=== PATIENT | male | born 1950 | race African-American/Black ===

== ENCOUNTER 2017-09-17 11:45 | Inpatient (IN) | payer OTHER ==
[2017-09-17 11:53] VITALS: BMI 26.0
--- NOTE | 2017-09-17 12:25 | PDOC ---
History of Present Illness - General Chief Complaint: Wound Stated Complaint: Wound Time Seen by Provider: 09/17/17 12:19 - History of Present Illness Initial Comments: 09/17/17 12:23 67yo M with history of heroin abuse, rhabdomyolysis, renal failure, asthma, hypertension, hypercholesterolemia, HIV (CD4 ~500, undetectable VL), syncopal episodes, kidney stones, and depression who presents from [facility] due to concern for his R great toe. Pt was sent by Dr. Portillo due to concern of cellulitis and possibe DVT in his great toe. Pt reports his wound starting 2 weeks ago as a corn from his basketball sneakers rubbing against his foot. Pt reports using one of those pads to comfort his foot, however his foot gradually got worse and became odorous. Pt was seen at [facility] today and he noticed that his wound had opened and that his R leg was swollen unilaterally. Pt also endorses some R lateral foot numbness, however he is still able to walk and has no motor function that is impeded. Pt denies any history of diabetes, plane rides, long car rides, prolonged immobilization, and being on blood thinners. Pt also denies any headaches, blurry vision, SOB, CP/discomfort, palpitations, neck pain, back pain, weakness in his lower extremities, difficulty walking, and diarrhea/constipation Past History - Past Medical History Allergies/Adverse Reactions: Allergies Allergy/AdvReac Type Severity Reaction Status Date / Time aspirin Allergy Unknown Rash Verified 09/17/17 11:48 Penicillins Allergy Unknown Rash Verified 09/17/17 11:48 tomatoes Allergy Mild Uncoded 09/17/17 11:48 Home Medications: Ambulatory Orders Methadone HCl 80 mg PO DAILY 10/30/15 Abacavir Sulfate/Lamivudine [Epzicom Tablet] 1 tablet PO DAILY #30 tablet Albuterol Sulfate Inhaler - [Ventolin HFA Inhaler -] 1 - 2 inh PO QID #1 inhaler 09/10/17 Atenolol [Tenormin] 25 mg PO DAILY #30 tablet 09/10/17 Darunavir Ethanolate [Prezista] 800 mg PO HS #30 tablet 09/10/17 Furosemide [Lasix -] 1 tab PO BID #60 tab 09/10/17 Magnesium Chloride [Slow-Mag -] 1 tab PO DAILY #30 tablet.sa 09/10/17 Multivitamins [Multivit ([facility] Formulary)] 1 tab PO DAILY #30 tab 09/10/17 Nifedipine [Procardia Xl] 30 mg PO DAILY #30 tab.er.24 09/10/17 Ritonavir [Norvir -] 100 mg PO DAILY #30 tab 09/10/17 Anemia: No Asthma: Yes (ALBUTEROL INHALER) Cancer: No Cardiac Disorders: No CVA: No COPD: No CHF: No Dementia: No Diabetes: No GI Disorders: No Disorders: No HTN: Yes Hypercholesterolemia: No Kidney Stones: No Liver Disease: No Seizures: No Thyroid Disease: No Other medical history: HEARING LOSS - Surgical History Abdominal Surgery: No Appendectomy: No Cardiac Surgery: No Cholecystectomy: No Lung Surgery: No Neurologic Surgery: No Orthopedic Surgery: Yes (Nasal fx repair ) - Reproductive History Testicular Surgery: No - Immunization History Immunization Up to Date: No - Suicide/Smoking/Psychosocial Hx Smoking Status: Yes Smoking History: Current every day smoker Have you smoked in the past 12 months: Yes Number of Cigarettes Smoked Daily: 7 Cigars Per Day: 0 Information on smoking cessation initiated: Yes 'Breaking Loose' booklet given: 09/17/17 Hx Alcohol Use: No Drug/Substance Use Hx: Yes Substance Use Type: None Hx Substance Use Treatment: Yes Review of Systems - Review of Systems Constitutional: No: Chills, Fever, Night Sweats, Weakness HEENTM: No: Blurred Vision, Nose Congestion, Throat Pain Respiratory: No: Cough, Shortness of Breath, Wheezing Cardiac (ROS): Yes: Edema. No: Chest Pain, Lightheadedness, Palpitations, Syncope, Chest Tightness ABD/GI: No: Constipated, Diarrhea, Nausea, Vomiting, Abdominal cramping : No: Dysuria, Frequency, Flank Pain, Incontinence Musculoskeletal: No: Back Pain, Neck Pain *Physical Exam - Vital Signs Last Vital Signs Temp Pulse Resp BP Pulse Ox 98.2 F 71 18 123/67 100 09/17/17 11:49 09/17/17 11:49 09/17/17 11:49 09/17/17 11:49 09/17/17 11:49 - Physical Exam Comments: 09/17/17 12:50 GEN: NAD, awake, alert, sitting in bed HEENT: EOMI, YING, slightly icteric eyes, moist mucosa, NC/AT NECK: No JVD LUNGS: CTA bilaterally CARDIAC: RRR no murmurs appreciated ABD: Soft, NT/ND, no guarding, no rebound NEURO: Strength 5/5 in lower extremities, sensation intact in LLE, however RLE has R lateral foot numbness, downgoing babinski b/l, CN II-XII intact EXT: R 1st digit with medial plantar wound without fluctuance appreciated, malodorous calloused circumferential area (about a quarter) with slightly opened central area, no erythema noted, no drainage at this point, unilateral RLE edema noted, 2+ DP and PT pulses intact, warm Heart Score/ECG Review #1 09/17/17 15:22 NSR @61 bpm, RBBB noted, QTc 493ms, MI 196ms, UNCHANGED from 02/17/16 EKG ED Treatment Course - LABORATORY CBC & Chemistry Diagram: 09/17/17 15:07 09/17/17 13:00 - RADIOLOGY Radiology Studies Ordered: Category Date Time Status DUPLEX VASCUL US-2LEGS [US] Stat Ultrasound 09/17/17 12:20 Ordered Medical Decision Making - Medical Decision Making 09/17/17 12:36 Highly suspicious for DVT alongside of open R 1st digit wound possibly infected --CBC, CMP, LA, CRP, Blood Cx --Duplex Lower extremities --R foot XR --Will most likely need admission --> MRI to r/o osteomyelitis, wound care consult, ID consult --Calloused area preventing wound culture without any purulence/drainage --IV Vancomycin 1500mg IVPB x1 (renally dosed based on 09/10/17 labs) --IV Levaquin 750mg IVPB x1 (renally doses = one time dose q48h after?) for coverage of pseudomonas in setting of penicillin allergy 09/17/17 14:01 CMP resulted --Hypokalemia 3.4 --> KDur 40mEq PO once --Mild hyponatremia (once IV line placed can gently hydrate) 09/17/17 15:24 Ultrasound without any evidence of DVT *DC/Admit/Observation/Transfer Diagnosis at time of Disposition: Cellulitis Qualifiers: Site of cellulitis: extremity Site of cellulitis of extremity: toe Laterality: right Qualified Code(s): L03.031 - Cellulitis of right toe - Discharge Dispostion Condition at time of disposition: Stable Admit: Yes - Referrals Referrals: Karime Griffin FNP [Primary Care Provider] - - Patient Instructions - Post Discharge Activity
[2017-09-17] MEDS ORDERED: VANCOMYCIN 1,500 MG in DEXTROSE 5%-WATER - 250 ML IVPB ONE (12:56)
--- NOTE | 2017-09-17 13:29 | PDOC ---
Attending Attestation - Resident Resident Name: ManciniTomasa - ED Attending Attestation I have performed the following: I have examined & evaluated the patient, The case was reviewed & discussed with the resident, I agree w/resident's findings & plan, Exceptions are as noted - HPI HPI: 09/17/17 13:18 67-year-old male with history of intravenous drug abuse, chronic renal insufficiency, hypertension, hyperlipidemia, asthma, HIV with undetectable viral load and CD4 count in the 500 sent in by infectious disease specialist Dr. Portillo for right toe infection. Patient reported 2 weeks ago of developing a wound against his shoe. Stated that he's been using pads to pad his foot. Started developing worsening wound and drainage and foul smell. Denies fevers or chills. Resident Dr. Crow I discussed the case with Dr. Portillo and agrees that the patient needs to be worked up for potential osteomyelitis. - Physicial Exam PE: 09/17/17 13:19 GENERAL: Awake, alert, and fully oriented, in no acute distress. HEAD: No signs of trauma EYES: PERRLA, EOMI, sclera anicteric, conjunctiva clear ENT: Auricles normal inspection, hearing grossly normal, nares patent NECK: Normal ROM, supple EXTREMITIES: Normal range of motion, no edema. Large ulceration, mild drainage, foul smell R 1st toe infection. NEUROLOGICAL: Cranial nerves II through XII grossly intact. Normal speech SKIN: Warm, Dry, normal turgor, no rashes or lesions noted. - Medical Decision Making 09/17/17 13:29 Vital Signs Temp Pulse Resp BP Pulse Ox 98.2 F 71 18 123/67 100 09/17/17 11:49 09/17/17 11:49 09/17/17 11:49 09/17/17 11:49 09/17/17 11:49 Appears to have first right toe infection Need to r/o osteomyelitis. Labs, cultures, IV antibiotics (Vanc/levaquin) Ultrasound to r/o RLE DVT (given mild RLE swelling). Admit Heart Score/ECG Review #1 ECG reviewed & interpreted by me at: 14:30 09/17/17 15:17 NSR 61, RBBB, no std/nadia, QTC 493 msec
[2017-09-17 13:57] LABS: ALBUMIN 3.4 g/dl (3.4-5.0); ALK PHOS 88 U/L (45-117); ANION GAP 7 (8-16); BILIRUBIN,TOTAL 0.3 mg/dL (0.2-1.0); BLOOD UREA NITROGEN 47 mg/dL (7-18); CALCIUM 8.6 mg/dL (8.5-10.1); CHLORIDE 99 mmol/L (98-107); CO2 27 mmol/L (21-32); CREATININE 4.5 mg/dL (0.7-1.3); GLUCOSE,RANDOM 107 mg/dL (74-106); POTASSIUM 3.4 mmol/L (3.5-5.1); SGOT/AST 42 U/L (15-37); SGPT/ALT 16 U/L (12-78); SODIUM 133 mmol/L (136-145); TOT PROT 8.5 g/dl (6.4-8.2)
[2017-09-17] MEDS ORDERED: POTASSIUM CHLORIDE TABS 20 MEQ TABLET.ER (FP) PO ONE ×2 (14:00→15:51)
[2017-09-17] MEDS ORDERED: AZTREONAM 1 GM VIAL (RESTRICTED TO ID) IVPB ONE (14:38)
[2017-09-17] MEDS ORDERED: VANCOMYCIN 1 GRAM (PRE-DOCKED) 1,000 MG/250 ML BAG IVPB ONE (14:54)
[2017-09-17] MEDS ORDERED: VANCOMYCIN 500 MG VIAL (RESTRICTED TO ID ONLY) ONE (14:54)
[2017-09-17] MEDS ORDERED: AZTREONAM 2 GM in DEXTROSE 5%-WATER - 100 ML IVPB ONE (15:15)
[2017-09-17] MEDS ORDERED: SODIUM CHLORIDE 1,000 ML IV SCH (15:15)
[2017-09-17 15:32] LABS: BASO % 0.5 % (0-2.0); EOS % 3.3 % (0-4.5); HEMOGLOBIN 11.7 GM/dL (11.7-16.9); LYMPH % 21.9 % (8-40); MCH 31.6 pg (25.7-33.7); MCHC 34.4 g/dl (32.0-35.9); MEAN CELL VOLUME 91.8 fl (80-96); MEAN PLT VOLUME 9.6 fl (7.5-11.1); MONO % 15.1 % (3.8-10.2); NEUT % 59.2 % (42.8-82.8); PLATELET COUNT 164 K/MM3 (134-434); RDW 14.7 % (11.9-15.9)
--- NOTE | 2017-09-17 16:38 | CONS ---
DATE OF CONSULTATION: DATE OF DICTATION: 09/17/2017 HISTORY OF PRESENT ILLNESS: The patient is a 67-year-old male who was admitted to the hospital for evaluation of a foul smelling necrotic ulcer of the right great toe. He is followed in the [facility] for longstanding HIV over many years. He is also on a methadone maintenance program and has been doing well in recovery. Additional problems include hypertension and asthma. Over the last 2 to 3 weeks he noted increasing swelling of his right leg more than the left. He admits that he has chronic lower extremity edema all of the time, but this was unusual for him. He also noted an ulcer to the great toe on the right foot which was becoming foul smelling and brought him to the clinic this morning. He had no fever or chills and I was asked by his nurse practitioner to see him, at which time he had what appeared to be a necrotic ulcer of the toe with cellulitis and swelling of the right foot. He was admitted for further evaluation and treatment. PAST MEDICAL HISTORY: HIV diagnosed in 1991. MEDICATIONS: Methadone, Epzicom, Prezista, Norvir, nifedipine, atenolol. ALLERGIES: PENICILLIN, TO BE FURTHER DETERMINED WITH PATIENT. SOCIAL HISTORY: Former substance abuse, current every-day smoker. HIV positive. FAMILY HISTORY: Noncontributory. REVIEW OF SYSTEMS: Respiratory: No cough, shortness of breath. Cardiac: No chest pain, palpitations. Gastrointestinal: No nausea, vomiting, diarrhea. Genitourinary: No dysuria or hematuria. PHYSICAL EXAMINATION: Vital Signs: His temp was 98, pulse 81, blood pressure 120/74, respirations 16. Neck: Supple. No adenopathy. Lungs: Clear to percussion and auscultation. Heart: S1, S2. Regular rhythm without audible murmur. Abdomen: Soft, nontender, without organomegaly. Extremities: Bilateral lower extremity edema, right greater than left. The right toe had a large necrotic ulcer with foul smell noted and tenderness to touch but no purulence or fluctuance seen. LABORATORY DATA: Currently pending. Most recent CD4 count 207. HIV viral load 30 copies. Recent BUN 47 with creatinine 4.5. White count 3.3, hemoglobin 11.2. ASSESSMENT: A 67-year-old male who presents with impending gangrene of the right great toe, possible secondary to cellulitis accounting for the increased edema in the right leg. Underlying osteomyelitis to be ruled out. PLAN: Admit. Empiric therapy with vancomycin adjusted for creatinine along with aztreonam and metronidazole. Wound culture. Blood cultures. Surgical consultation for possible debridement. MRI of the toe. Resume all current HIV medications. CRP. DAMON CARTER M.D. [id number]
--- NOTE | 2017-09-17 16:46 | HP ---
Admitting History and Physical - Admission Chief Complaint: Right toe infection History of Present Illness: This is a 67 year old male with remote hx of IVDU (heroine) now on methadone from [facility], renal failure, asthma, HTN, HLD, HIV (CD4 ~500, undetectable VL) , depression, left sided hearing loss, sent from ID Dr. Portillofor rule out R great toe osteo. Two weeks ago after playing basketball pt developed his wound while playing basketball. Since then he was changing the wound himself with pads. He has no wound care doctor. His toe today was odorous, numb and his r leg was swollen. Pt denies chest pain, sob, fever, abd pain, n/v. History Source: Patient, Medical Record Limitations to Obtaining History: No Limitations - Past Medical History Cardiovascular: Yes: HTN, Hyperlipdemia Pulmonary: Yes: Asthma Renal/: Yes: Renal Inusuff Infectious Disease: Yes: HIV Psych: Yes: Depression - Smoking History Smoking history: Current every day smoker Have you smoked in the past 12 months: Yes Aproximately how many cigarettes per day: 7 - Alcohol/Substance Use Hx Alcohol Use: No History of Substance Use: reports: Heroin - Social History Usual Living Arrangement: Yes: Alone ADL: Independent History of Recent Travel: No Home Medications - Allergies Allergies/Adverse Reactions: Allergies Allergy/AdvReac Type Severity Reaction Status Date / Time aspirin Allergy Unknown Rash Verified 09/17/17 11:48 Penicillins Allergy Unknown Rash Verified 09/17/17 11:48 tomatoes Allergy Mild Uncoded 09/17/17 11:48 - Home Medications Home Medications: Ambulatory Orders Methadone HCl 80 mg PO DAILY 10/30/15 Abacavir Sulfate/Lamivudine [Epzicom Tablet] 1 tablet PO DAILY #30 tablet Albuterol Sulfate Inhaler - [Ventolin HFA Inhaler -] 1 - 2 inh PO QID #1 inhaler 09/10/17 Atenolol [Tenormin] 25 mg PO DAILY #30 tablet 09/10/17 Darunavir Ethanolate [Prezista] 800 mg PO HS #30 tablet 09/10/17 Furosemide [Lasix -] 1 tab PO BID #60 tab 09/10/17 Magnesium Chloride [Slow-Mag -] 1 tab PO DAILY #30 tablet.sa 09/10/17 Multivitamins [Multivit ([facility] Formulary)] 1 tab PO DAILY #30 tab 09/10/17 Nifedipine [Procardia Xl] 30 mg PO DAILY #30 tab.er.24 09/10/17 Ritonavir [Norvir -] 100 mg PO DAILY #30 tab 09/10/17 Family Disease History - Family Disease History Family Disease History: Other: Father (HTN-), Brother (HTN-ALL FIVE BROTHERS), Sister (HTN) Review of Systems - Review of Systems Constitutional: reports: No Symptoms Eyes: reports: No Symptoms HENT: reports: No Symptoms Neck: reports: No Symptoms Cardiovascular: reports: No Symptoms Respiratory: reports: No Symptoms Gastrointestinal: reports: No Symptoms Genitourinary: reports: No Symptoms Musculoskeletal: reports: No Symptoms Integumentary: reports: Wound (r toe) Neurological: reports: No Symptoms Endocrine: reports: No Symptoms Hematology/Lymphatic: reports: No Symptoms Psychiatric: reports: No Symptoms Physical Examination Vital Signs: Vital Signs Temperature 98.2 F 09/17/17 11:49 Pulse Rate 71 09/17/17 11:49 Respiratory Rate 18 09/17/17 11:49 Blood Pressure 0/0 09/17/17 13:36 O2 Sat by Pulse Oximetry (%) 100 09/17/17 11:49 Constitutional: Yes: No Distress Eyes: Yes: Conjunctiva Clear HENT: Yes: Atraumatic Neck: Yes: Supple Cardiovascular: Yes: Regular Rate and Rhythm, S1, S2 Respiratory: Yes: Diminished Gastrointestinal: Yes: Normal Bowel Sounds, Soft Musculoskeletal: Yes: WNL Edema: Yes Edema: RLE: 1+ Peripheral Pulses WNL: Yes Wound/Incision: Yes: Open to air, Reddened, Other (r great toe wound open, red, swollen) Neurological: Yes: Alert, Oriented, Cran Nerves II-XII Intact Labs: CBC, BMP 09/17/17 15:07 09/17/17 13:00 Imaging - Results X-ray: Report Reviewed (foot xray done, report pending) Ultrasound: Report Reviewed (no dvt) Problem List - Problems (1) Cellulitis Code(s): L03.90 - CELLULITIS, UNSPECIFIED Qualifiers: Site of cellulitis: extremity Site of cellulitis of extremity: toe Laterality: right Qualified Code(s): L03.031 - Cellulitis of right toe (2) HIV disease Code(s): B20 - HUMAN IMMUNODEFICIENCY VIRUS [HIV] DISEASE (3) Hypertension Code(s): I10 - ESSENTIAL (PRIMARY) HYPERTENSION (4) Methadone maintenance therapy patient Code(s): F11.20 - OPIOID DEPENDENCE, UNCOMPLICATED (5) Renal impairment Code(s): N28.9 - DISORDER OF KIDNEY AND URETER, UNSPECIFIED (6) ENTERPRISE (hard of hearing) Code(s): H91.90 - UNSPECIFIED HEARING LOSS, UNSPECIFIED EAR Assessment/Plan Assessment: 67 year old male admitted with infected R great toe Plan: 1. R great toe infection - Follow up foot xray - Consider MRI pending results r/o osteo - CRP noted - BC pending - Aztreonam/flagyl per ID - Vascular consult placed 2. SIMONE on ?CKD - Start gentle fluids - Obtain renal US, urine lytes, sodium, creatinine, UA - Hold lasix - Renal consulted 3. HIV - Continue HARRT meds 4. HTN - Atenolol 25mg daily - Procardia xl 30mg daily 5. Hypokalemia - Repleted in ED 6. DVT - Heparin sq Visit type - Emergency Visit Emergency Visit: Yes ED Registration Date: 09/17/17 Care time: The patient presented to the Emergency Department on the above date and was hospitalized for further evaluation of their emergent condition. - New Patient This patient is new to me today: Yes Date on this admission: 09/17/17 - Critical Care Critical Care patient: No Hospitalist Screening - Colonoscopy Questionnaire Colonoscopy Questionnaire: Colonoscopy Questionnaire - Patient: 50 - 75 years old and never had a screening colonoscopy: Unknown History of colon or rectal polyps, or CA: Unknown History of IBD, Crohn's disease or UC: Unknown History of abdominal radiation therapy as a child: Unknown - Relative: 1 with colon or rectal CA, or polyps at age 60 or younger: Unknown Colon or rectal CA diagnosed at age 45 or younger: Unknown Multiple relatives with colon or rectal CA: Unknown - Outcome: Screening Result: Negative Screen
[2017-09-17] MEDS ORDERED: AZTREONAM 1 GM in DEXTROSE 5%-WATER - 50 ML IVPB SCH (18:00)
[2017-09-17] MEDS ORDERED: ACETAMINOPHEN 325 MG TABLET (FP) PO PRN (18:08)
[2017-09-17] MEDS: SODIUM CHLORIDE 1,000 ML IV SCH (21:09)
[2017-09-17] MEDS: HEPARIN NA (PORCINE) 5,000 UNITS/ML 1ML VIAL SQ SCH (21:11)
[2017-09-17] MEDS: AZTREONAM 1 GM in DEXTROSE 5%-WATER - 50 ML IVPB SCH (21:11)
[2017-09-17] MEDS ORDERED: DARUNAVIR ETHANOLATE 800 MG TAB PO SCH (22:00)
[2017-09-18] MEDS ORDERED: PT OWN MED DRAWER 7, Y5N ONE ×3 (00:50→17:10)
[2017-09-18] MEDS: AZTREONAM 1 GM in DEXTROSE 5%-WATER - 50 ML IVPB SCH ×3 (02:09→18:09)
[2017-09-18] MEDS ORDERED: METHADONE HCL 40 MG DISPERSABLE TABLET PO SCH (06:00)
[2017-09-18] MEDS: HEPARIN NA (PORCINE) 5,000 UNITS/ML 1ML VIAL SQ SCH ×2 (06:57→14:09)
--- NOTE | 2017-09-18 06:59 | PN ---
Progress Note, Physician Chief Complaint: ID Apparently attempted to leave hospital last night! Afebrile Dose of vancomycin Azteronam meteronidazole - Current Medication List Current Medications: Active Medications Acetaminophen (Tylenol -) 650 mg PO Q4H PRN PRN Reason: PAIN LEVEL 1-5 Atenolol (Tenormin -) 25 mg PO DAILY [facility] Darunavir (Prezista -) 800 mg PO DAILY [facility] Heparin Sodium (Porcine) (Heparin -) 5,000 unit SQ TID THOMAS Last Admin: 09/17/17 21:11 Dose: 5,000 unit Metronidazole (Flagyl 500mg Premixed Ivpb -) 500 mg in 100 mls @ 100 mls/hr IVPB Q8H-IV THOMAS Last Admin: 09/18/17 01:12 Dose: 100 mls/hr Aztreonam 1 gm/ Dextrose 50 mls @ 100 mls/hr IVPB Q8H-IV [facility] Last Admin: 09/18/17 02:09 Dose: 100 mls/hr Sodium Chloride (Normal Saline -) 1,000 mls @ 75 mls/hr IV ASDIR [facility] Last Admin: 09/17/17 21:09 Dose: 75 mls/hr Methadone HCl (Dolophine -) 80 mg PO DAILY@0600 THOMAS Nifedipine (Procardia Xl -) 30 mg PO DAILY [facility] Non-Formulary Medication (Abacavir Sulfate/Lamivudine [Epzicom Tablet]) 1 tablet PO DAILY [facility] Ritonavir (Norvir -) 100 mg PO DAILY [facility] - Objective Vital Signs: Vital Signs Temperature 98.2 F 09/17/17 22:00 Pulse Rate 69 09/17/17 22:00 Respiratory Rate 20 09/17/17 22:00 Blood Pressure 132/73 09/17/17 22:00 O2 Sat by Pulse Oximetry (%) 100 09/17/17 11:49 Constitutional: Yes: Well Nourished, No Distress Neck: Yes: WNL, Supple Cardiovascular: Yes: S1, S2 Respiratory: Yes: WNL, Regular, CTA Bilaterally Extremities: Yes: Other (Necrotic ulcer of the great toe) Labs: CBC, BMP 09/17/17 15:07 09/17/17 13:00 Assessment/Plan Microbiology Laboratory Tests 09/17/17 09/17/17 13:00 15:07 WBC 4.0 D Hgb 11.7 Hct 34.0 L Plt Count 164 BUN 47 H D Creatinine 4.5 H D Creat Clearance w eGFR 13.[address] Holguin evaluation regarding need to debride the toe If not might consider wound care follow up with oral antibiotic Keflex and metronidazole for a week Dr Pena follows the patient so will cancel current nephrology evaluation as this is not a new Problem Xray do not see gross bone destruction Bandar PALACIO
[2017-09-18 07:54] LABS: URINE APPEARANCE CLEAR; URINE BILIRUBIN NEGATIVE (<2.0 mg/dL); URINE COLOR LTYELLOW; URINE GLUCOSE (UA) 1+ (NEGATIVE); URINE KETONE NEGATIVE (NEGATIVE); URINE LEUK ESTERASE NEGATIVE (NEGATIVE); URINE NITRITE NEGATIVE (NEGATIVE); URINE UROBILINOGEN NEGATIVE mg/dL (0.2-1.0)
[2017-09-18 07:59] LABS: URINE PROTEIN 2+ (NEGATIVE)
[2017-09-18 09:13] VITALS: PULSE 64
[2017-09-18] MEDS ORDERED: RITONAVIR 100 MG TABLET PO SCH (10:00)
[2017-09-18] MEDS ORDERED: DARUNAVIR ETHANOLATE 800 MG TAB PO SCH (10:00)
[2017-09-18] MEDS ORDERED: PATIENT'S OWN MEDICATION (NON-FORMULARY) (Abacavir Sulfate/Lamivudine [Epzicom Tablet] 1 T PO SCH (10:00)
[2017-09-18] MEDS ORDERED: ATENOLOL 25 MG TABLET (FP) PO SCH (10:00)
[2017-09-18] MEDS ORDERED: NIFEdipine E.R. 30 MG TABLET (FP) PO SCH (10:00)
[2017-09-18 10:17] LABS: ALBUMIN 3.2 g/dl (3.4-5.0); ALK PHOS 85 U/L (45-117); ANION GAP 8 (8-16); BILIRUBIN,TOTAL 0.4 mg/dL (0.2-1.0); BLOOD UREA NITROGEN 48 mg/dL (7-18); CALCIUM 8.5 mg/dL (8.5-10.1); CHLORIDE 102 mmol/L (98-107); CO2 25 mmol/L (21-32); GLUCOSE,RANDOM 136 mg/dL (74-106); MAGNESIUM 1.5 mg/dL (1.8-2.4); PHOSPHOROUS 3.4 mg/dL (2.5-4.9); POTASSIUM 3.8 mmol/L (3.5-5.1); SGOT/AST 41 U/L (15-37); SGPT/ALT 14 U/L (12-78); SODIUM 135 mmol/L (136-145); TOT PROT 8.1 g/dl (6.4-8.2)
[2017-09-18] MEDS ORDERED: ABACAVIR SULFATE 300 MG TABLET PO SCH (11:00)
[2017-09-18] MEDS ORDERED: lamiVUDine 150 MG TABLET PO SCH (11:00)
--- NOTE | 2017-09-18 11:33 | EKG ---
Test Reason : Blood Pressure : / mmHG Vent. Rate : 061 BPM Atrial Rate : 061 BPM P-R Int : 196 ms QRS Dur : 166 ms QT Int : 490 ms P-R-T Axes : 065 065 018 degrees QTc Int : 493 ms NORMAL SINUS RHYTHM RIGHT BUNDLE BRANCH BLOCK T WAVE ABNORMALITY, CONSIDER INFERIOR ISCHEMIA ABNORMAL ECG WHEN COMPARED WITH ECG OF 17-FEB-2016 02:30, NO SIGNIFICANT CHANGE WAS FOUND Confirmed by SAMY PALACIO, ALEX ([id number]) on 09/18/2017 11:32:35 AM Referred By: Confirmed By:ALEX PABLO MD
[2017-09-18 11:55] LABS: BASO % 0.7 % (0-2.0); EOS % 5.8 % (0-4.5); HEMATOCRIT 36.2 % (35.4-49); HEMOGLOBIN 12.3 GM/dL (11.7-16.9); LYMPH % 14.2 % (8-40); MCH 31.3 pg (25.7-33.7); MEAN CELL VOLUME 92.3 fl (80-96); MONO % 13.5 % (3.8-10.2); NEUT % 65.8 % (42.8-82.8); PLATELET COUNT 175 K/MM3 (134-434); RBC 3.92 M/mm3 (4.00-5.60); RDW 15.3 % (11.9-15.9); WHITE BLOOD COUNT 3.4 K/mm3 (4.0-10.0)
[2017-09-18] MEDS: SODIUM CHLORIDE 1,000 ML IV SCH ×2 (14:13→18:09)
[2017-09-18 15:24] VITALS: BP 119/62; TEMP 98.2
--- NOTE | 2017-09-18 18:12 | DS ---
Physical Examination Vital Signs: Vital Signs Temperature 98.2 F 09/18/17 15:20 Pulse Rate 64 09/18/17 15:20 Respiratory Rate 22 09/18/17 15:20 Blood Pressure 119/62 09/18/17 15:20 O2 Sat by Pulse Oximetry (%) 99 09/18/17 09:00 Labs: CBC, BMP 09/18/17 10:40 09/18/17 09:35 Discharge Summary Reason For Visit: CELLULITIS Current Active Problems At risk for deep venous thrombosis (Acute) Callous ulcer (Acute) Asthma (Chronic) HIV disease (Chronic) Hypertension (Chronic) Methadone maintenance therapy patient (Chronic) Renal impairment (Chronic) Hospital Course: The patient has left AMA Reviewed Dr. Portillo's note from today. Will give Rx for Keflex and Flagyl x1 week. Instructed the patient to follow-up with Dr. Henriquez as outpatient. Condition: Stable - Instructions Referrals: Karime Griffin FNP [Primary Care Provider] - Disposition: AGAINST MEDICAL ADVICE - Home Medications Comprehensive Discharge Medication List: Ambulatory Orders Methadone HCl 80 mg PO DAILY 10/30/15 Abacavir Sulfate/Lamivudine [Epzicom Tablet] 1 tablet PO DAILY #30 tablet Albuterol Sulfate Inhaler - [Ventolin HFA Inhaler -] 1 - 2 inh PO QID #1 inhaler 09/10/17 Atenolol [Tenormin] 25 mg PO DAILY #30 tablet 09/10/17 Darunavir Ethanolate [Prezista] 800 mg PO HS #30 tablet 09/10/17 Furosemide [Lasix -] 1 tab PO BID #60 tab 09/10/17 Magnesium Chloride [Slow-Mag -] 1 tab PO DAILY #30 tablet.sa 09/10/17 Multivitamins [Multivit ([facility] Formulary)] 1 tab PO DAILY #30 tab 09/10/17 Nifedipine [Procardia Xl] 30 mg PO DAILY #30 tab.er.24 09/10/17 Ritonavir [Norvir -] 100 mg PO DAILY #30 tab 09/10/17 Cephalexin [Keflex] 750 mg PO BID #14 capsule 09/18/17 metroNIDAZOLE [Flagyl -] 500 mg PO Q8H #21 tablet 09/18/17
[2017-09-18] MEDS ORDERED: MAGNESIUM OXIDE 400 MG TABLET (FP) PO ONE (18:15)
== END 2017-09-18 18:06 | disposition left against medical advice (07) | DRG 383 ==
LOC: JER 11:45 → JERBED 16:34 → J8W 18:33
PROVIDERS: ADMIT Internal Medicine; ATTEND Registered Nurse
DX: L03.031 Cellulitis of right toe (principal); B20 Human immunodeficiency virus [HIV] disease; N17.9 Acute kidney failure, unspecified; F11.20 Opioid dependence, uncomplicated; E87.1 Hypo-osmolality and hyponatremia; L97.519 Non-pressure chronic ulcer of other part of right foot with unspecified severity; E87.6 Hypokalemia; E78.5 Hyperlipidemia, unspecified; J45.909 Unspecified asthma, uncomplicated; I12.9 Hypertensive chronic kidney disease with stage 1 through stage 4 chronic kidney disease, or unspecified chronic kidney disease; N18.9 Chronic kidney disease, unspecified; I45.10 Unspecified right bundle-branch block; Z88.0 Allergy status to penicillin; F17.210 Nicotine dependence, cigarettes, uncomplicated; F32.9 Major depressive disorder, single episode, unspecified; H91.90 Unspecified hearing loss, unspecified ear
CPT/HCPCS: 36415; 73630-TC-RT-FY; 76775-TC; 80053; 81003; 81015; 82570; 83036; 83605; 83735; 84100; 84300; 85025; 86140; 87040; 93005; 93010; 93970-TC; 99285-25; J1644; J7030

== ENCOUNTER 2017-11-08 15:26 | Inpatient (IN) | payer OTHER ==
--- NOTE | 2017-11-08 16:05 | PDOC ---
Rapid Medical Evaluation Time Seen by Provider: 11/08/17 16:02 Medical Evaluation: Allergies Allergy/AdvReac Type Severity Reaction Status Date / Time aspirin Allergy Unknown Rash Verified 11/08/17 16:03 Penicillins Allergy Unknown Rash Verified 11/08/17 16:03 tomatoes Allergy Mild Uncoded 11/08/17 16:03 11/08/17 16:06 This is a 67-year-old male with HIV, HTN, asthma, methadone dependence, and chronic right great toe ulcer [facility] and sent today for admission for IV antibiotics. No fevers/chills or systemic symptoms. Plan: -Basic labs -To Main ED for further evaluation Discharge Disposition - Diagnosis Osteomyelitis Qualifiers: Osteomyelitis type: unspecified type Osteomyelitis location: foot Laterality: right Qualified Code(s): M86.9 - Osteomyelitis, unspecified - Referrals - Patient Instructions - Post Discharge Activity
--- NOTE | 2017-11-08 16:50 | PDOC ---
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 Reports that he has had this wound for around 2 months and was diagnosed with osteomyelitis in the R great toe around 1 month ago, but failed to follow up for admission for antibiotics. Denies drainage from the wound. He currently denies pain, fevers, chills, nausea, vomiting, diarrhea. Allergies: penicillins, aspirin Smoke: current smoker of > 40 years Alcohol: none Drugs: denies, on methadone PMD: Dr. Griffin 11/08/17 17:14 Past History - Past Medical History Allergies/Adverse Reactions: Allergies Allergy/AdvReac Type Severity Reaction Status Date / Time aspirin Allergy Unknown Rash Verified 11/08/17 16:03 Penicillins Allergy Unknown Rash Verified 11/08/17 16:03 tomatoes Allergy Mild Uncoded 11/08/17 16:03 Home Medications: Ambulatory Orders Methadone HCl 80 mg PO DAILY 10/30/15 Abacavir Sulfate/Lamivudine [Epzicom Tablet] 1 tablet PO DAILY #30 tablet Albuterol Sulfate Inhaler - [Ventolin HFA Inhaler -] 1 - 2 inh PO QID #1 inhaler 09/10/17 Atenolol [Tenormin] 25 mg PO DAILY #30 tablet 09/10/17 Darunavir Ethanolate [Prezista] 800 mg PO HS #30 tablet 09/10/17 Furosemide [Lasix -] 1 tab PO BID #60 tab 09/10/17 Magnesium Chloride [Slow-Mag -] 1 tab PO DAILY #30 tablet.sa 09/10/17 Multivitamins [Multivit ([facility])] 1 tab PO DAILY #30 tab 09/10/17 Nifedipine [Procardia Xl] 30 mg PO DAILY #30 tab.er.24 09/10/17 Ritonavir [Norvir -] 100 mg PO DAILY #30 tab 09/10/17 Cephalexin Monohydrate [Keflex -] 1 tab PO BID #42 capsule 10/26/17 Anemia: No Asthma: Yes Cancer: No Cardiac Disorders: No CVA: No COPD: No CHF: No Dementia: No Diabetes: No GI Disorders: No Disorders: No HTN: Yes Hypercholesterolemia: Yes Kidney Stones: No Liver Disease: No Seizures: No Thyroid Disease: No - Surgical History Abdominal Surgery: No Appendectomy: No Cardiac Surgery: No Cholecystectomy: No Lung Surgery: No Neurologic Surgery: No Orthopedic Surgery: Yes (Nasal fx repair ) - Reproductive History Testicular Surgery: No - Immunization History Immunization Up to Date: No - Suicide/Smoking/Psychosocial Hx Smoking Status: Yes Smoking History: Current every day smoker Have you smoked in the past 12 months: Yes Number of Cigarettes Smoked Daily: 10 Cigars Per Day: 0 Information on smoking cessation initiated: No 'Breaking Loose' booklet given: 09/17/17 Hx Alcohol Use: No Drug/Substance Use Hx: Yes Substance Use Type: Heroin Hx Substance Use Treatment: Yes Review of Systems - Review of Systems Able to Perform ROS?: Yes Is the patient limited Guyanese proficient: Yes Constitutional: Yes: Symptoms Reported HEENTM: Yes: Symptoms Reported Respiratory: Yes: Symptoms reported Cardiac (ROS): Yes: Symptoms Reported ABD/GI: Yes: Symptoms Reported *Physical Exam - Vital Signs Last Vital Signs Temp Pulse Resp BP Pulse Ox 97.4 F L 66 19 141/77 98 11/08/17 16:03 11/08/17 16:03 11/08/17 16:03 11/08/17 16:03 11/08/17 16:03 - Physical Exam Comments: 11/08/17 17:21 GENERAL: A&Ox3, no acute distress EYES: PERRLA, EOMI ENT: Moist mucus membranes NECK: No JVD LUNGS: CTA, no wheezes HEART: RRR, no murmurs ABDOMEN: Soft, nontender, BS present MUSCULOSKELETAL: No CVA Tenderness EXTREMITIES: R hallux ulcer 2x3 cm noted on plantar side of R hallux, gauze draining and foul odor noted NEUROLOGICAL: Cranial nerves II-XII intact ED Treatment Course - LABORATORY CBC & Chemistry Diagram: 11/08/17 16:18 11/08/17 16:18 Medical Decision Making - Medical Decision Making 11/08/17 17:23 67 year old male hx of IVDA, renal failure, HTN, HLD, HIV, presents from wound care for R hallux osteomyelitis -cbc, cmp, ekg, cxr, INR, wound ulture, blood culture, urine culture, UA, esr, crp -admit to Dr. Matson -consult dr. torres 11/08/17 17:35 *DC/Admit/Observation/Transfer Diagnosis at time of Disposition: Osteomyelitis Qualifiers: Osteomyelitis type: unspecified type Osteomyelitis location: foot Laterality: right Qualified Code(s): M86.9 - Osteomyelitis, unspecified - Referrals Referrals: Karime Griffin [facility] [employer] [Primary Care Provider] - - Patient Instructions - Post Discharge Activity
[2017-11-08 16:58] LABS: BASO % 0.7 % (0-2.0); EOS % 6.3 % (0-4.5); HEMATOCRIT 34.5 % (35.4-49); HEMOGLOBIN 11.2 GM/dL (11.7-16.9); LYMPH % 22.1 % (8-40); MCH 31.3 pg (25.7-33.7); MCHC 32.5 g/dl (32.0-35.9); MEAN CELL VOLUME 96.5 fl (80-96); MEAN PLT VOLUME 10.5 fl (7.5-11.1); MONO % 11.7 % (3.8-10.2); NEUT % 59.2 % (42.8-82.8); PLATELET COUNT 154 K/MM3 (134-434); RBC 3.57 M/mm3 (4.00-5.60); RDW 15.7 % (11.9-15.9); WHITE BLOOD COUNT 3.9 K/mm3 (4.0-10.0)
[2017-11-08] MEDS ORDERED: VANCOMYCIN 1 GM PREMIX - 1 GM/200 ML BAG IVPB ONE (17:06)
[2017-11-08] MEDS ORDERED: VANCOMYCIN 1 GRAM (PRE-DOCKED) 1,000 MG/250 ML BAG IVPB ONE (17:27)
--- NOTE | 2017-11-08 17:40 | PDOC ---
Attending Attestation - Resident Resident Name: KeltonDuy - ED Attending Attestation I have performed the following: I have examined & evaluated the patient, The case was reviewed & discussed with the resident, I agree w/resident's findings & plan, Exceptions are as noted - HPI HPI: 11/08/17 17:38 67 yo male with h/o htn hld pvd. hiv followed at [facility] [place], here with chronic right foot great toe ulcer. pt had recently been on keflex. was evaluated with an mri, showing osteo. prior had refused admission. today pt was agreeable to come to ed for evaluation and admission for iv abx. no f/c does have pain in foot redness and swelling up right leg. - Physicial Exam PE: 11/08/17 17:39 awake alert lungs clear bilaterally. heart rrr no mrg. abd soft nt nd. ext wwp. right leg with warmth, swelling and redness to knee. right plantar surface great toe with foul smelling ulcer, no exudate. yellowish discoloration. - Medical Decision Making 11/08/17 17:40 differential sepsis, osteo, cellulitis. plan labs cultures iv abx. will consult ID admit for iv abx.
[2017-11-08 17:44] LABS: INR 0.97 (0.82-1.09)
[2017-11-08 18:25] LABS: ALBUMIN 3.4 g/dl (3.4-5.0); ANION GAP 11 (8-16); BILIRUBIN,TOTAL 0.3 mg/dL (0.2-1.0); BLOOD UREA NITROGEN 52 mg/dL (7-18); CALCIUM 9.2 mg/dL (8.5-10.1); CHLORIDE 98 mmol/L (98-107); CO2 26 mmol/L (21-32); GLUCOSE,RANDOM 138 mg/dL (74-106); POTASSIUM 4.1 mmol/L (3.5-5.1); SGOT/AST 102 U/L (15-37); SGPT/ALT 37 U/L (12-78); SODIUM 135 mmol/L (136-145); TOT PROT 8.4 g/dl (6.4-8.2)
[2017-11-08 18:26] LABS: ALK PHOS 69 U/L (45-117)
[2017-11-08] MEDS ORDERED: ALBUTEROL SO4 18 GM HFA INHALER IH PRN (19:11)
--- NOTE | 2017-11-08 19:11 | HP ---
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 Reports that he has had this wound for around 2 months and was diagnosed with osteomyelitis in the R great toe around 1 month ago, but failed to follow up for admission for antibiotics. Denies drainage from the wound. no fevr chills, nausea - Past Medical History Cardiovascular: Yes: HTN, Hyperlipdemia Pulmonary: Yes: Asthma Renal/: Yes: Renal Inusuff Infectious Disease: Yes: HIV Psych: Yes: Depression - Smoking History Smoking history: Current every day smoker Have you smoked in the past 12 months: Yes Aproximately how many cigarettes per day: 10 - Alcohol/Substance Use Hx Alcohol Use: No History of Substance Use: reports: Heroin - Social History ADL: Independent History of Recent Travel: No Home Medications - Allergies Allergies/Adverse Reactions: Allergies Allergy/AdvReac Type Severity Reaction Status Date / Time aspirin Allergy Unknown Rash Verified 11/08/17 16:03 Penicillins Allergy Unknown Rash Verified 11/08/17 16:03 tomatoes Allergy Mild Uncoded 11/08/17 16:03 - Home Medications Home Medications: Ambulatory Orders Methadone HCl 80 mg PO DAILY 10/30/15 Abacavir Sulfate/Lamivudine [Epzicom Tablet] 1 tablet PO DAILY #30 tablet Albuterol Sulfate Inhaler - [Ventolin HFA Inhaler -] 1 - 2 inh PO QID #1 inhaler 09/10/17 Atenolol [Tenormin] 25 mg PO DAILY #30 tablet 09/10/17 Darunavir Ethanolate [Prezista] 800 mg PO HS #30 tablet 09/10/17 Furosemide [Lasix -] 1 tab PO BID #60 tab 09/10/17 Magnesium Chloride [Slow-Mag -] 1 tab PO DAILY #30 tablet.sa 09/10/17 Multivitamins [Multivit ([facility])] 1 tab PO DAILY #30 tab 09/10/17 Nifedipine [Procardia Xl] 30 mg PO DAILY #30 tab.er.24 09/10/17 Ritonavir [Norvir -] 100 mg PO DAILY #30 tab 09/10/17 Cephalexin Monohydrate [Keflex -] 1 tab PO BID #42 capsule 10/26/17 Family Disease History - Family Disease History Family Disease History: Other: Father (HTN-), Brother (HTN-ALL FIVE BROTHERS), Sister (HTN) Physical Examination Vital Signs: Vital Signs Temperature 97.4 F L 11/08/17 16:03 Pulse Rate 66 11/08/17 16:03 Respiratory Rate 19 11/08/17 16:03 Blood Pressure 141/77 11/08/17 16:03 O2 Sat by Pulse Oximetry (%) 97 11/08/17 17:03 Constitutional: Yes: No Distress HENT: Yes: Atraumatic Neck: Yes: Supple Cardiovascular: Yes: Regular Rate and Rhythm Respiratory: Yes: CTA Bilaterally Gastrointestinal: Yes: Normal Bowel Sounds Extremities: Yes: Other (R big toe ulcer) Neurological: Yes: Alert, Oriented Labs: CBC, BMP 11/08/17 16:18 11/08/17 16:18 Problem List - Problems (1) Osteomyelitis Assessment/Plan: Rbig toe iv abx wound care id consult Code(s): M86.9 - OSTEOMYELITIS, UNSPECIFIED Qualifiers: Osteomyelitis type: unspecified type Osteomyelitis location: foot Laterality: right Qualified Code(s): M86.9 - Osteomyelitis, unspecified (2) Asthma Assessment/Plan: stable Code(s): J45.909 - UNSPECIFIED ASTHMA, UNCOMPLICATED (3) HIV disease Assessment/Plan: on meds Code(s): B20 - HUMAN IMMUNODEFICIENCY VIRUS [HIV] DISEASE (4) Hypertension Assessment/Plan: on meds Code(s): I10 - ESSENTIAL (PRIMARY) HYPERTENSION Assessment/Plan Laboratory Tests 11/08/17 11/08/17 11/08/17 16:18 16:18 16:18 WBC 3.9 L RBC 3.57 L Hgb 11.2 L Hct 34.5 L MCV 96.5 H MCH 31.3 MCHC 32.5 RDW 15.7 Plt Count 154 MPV 10.5 Absolute Neuts (auto) 2.3 Neutrophils % 59.2 Lymphocytes % 22.1 Monocytes % 11.7 H Eosinophils % 6.3 H Basophils % 0.7 Nucleated RBC % 0 PT with INR 11.00 INR 0.97 Sodium 135 L Potassium 4.1 Chloride 98 Carbon Dioxide 26 Anion Gap 11 BUN 52 H Creatinine 3.0 H Creat Clearance w eGFR 21.11 Random Glucose 138 H D Calcium 9.2 Total Bilirubin 0.3 AST 102 H D ALT 37 D Alkaline Phosphatase 69 C-Reactive Protein Total Protein 8.4 H Albumin 3.4 Blood Type Antibody Screen 11/08/17 11/08/17 11/08/17 16:18 16:56 16:59 WBC RBC Hgb Hct MCV MCH MCHC RDW Plt Count MPV Absolute Neuts (auto) Neutrophils % Lymphocytes % Monocytes % Eosinophils % Basophils % Nucleated RBC % PT with INR INR Sodium Potassium Chloride Carbon Dioxide Anion Gap BUN Creatinine Creat Clearance w eGFR Random Glucose Calcium Total Bilirubin AST ALT Alkaline Phosphatase C-Reactive Protein 0.8 H Total Protein Albumin Blood Type Cancelled A POSITIVE Antibody Screen Cancelled Negative Active Medications Generic Name Dose Route Start Last Admin Trade Name Freq PRN Reason Stop Dose Admin Abacavir Sulfate 600 mg 11/09/17 10:00 11/09/17 09:37 Ziagen - PO 600 mg DAILY THOMAS Administration Albuterol Sulfate 1 puff 11/08/17 19:11 Ventolin Hfa Inhaler - IH Q6H PRN SHORT OF BREATH/WHEEZING Atenolol 25 mg 11/09/17 10:00 11/09/17 09:37 Tenormin - PO 25 mg DAILY THOMAS Administration Darunavir 800 mg 11/08/17 22:00 11/08/17 22:16 Prezista - PO 800 mg HS THOMAS Administration Furosemide 40 mg 11/08/17 19:30 11/09/17 13:44 Lasix - PO 40 mg BIDLASIX THOMAS Administration Heparin Sodium (Porcine) 5,000 unit 11/08/17 22:00 11/09/17 09:38 Heparin - SQ 5,000 unit BID THOMAS Administration Ceftriaxone Sodium 1 gm/ 50 mls @ 100 mls/hr 11/09/17 14:15 11/09/17 16:20 Dextrose IVPB 100 mls/hr DAILY THOMAS Administration Protocol Metronidazole 500 mg in 100 mls @ 100 mls/hr 11/09/17 14:15 11/09/17 17:21 Flagyl 500mg Premixed Ivpb - IVPB Not Given Q8H-IV THOMAS Lamivudine 300 mg 11/09/17 10:00 11/09/17 09:37 Epivir - PO 300 mg DAILY THOMAS Administration Methadone HCl 80 mg 11/09/17 06:00 11/09/17 06:23 Dolophine - PO 80 mg DAILY@0600 THOMAS Administration Multivitamins/Minerals/Vitamin C 1 tab 11/09/17 10:00 11/09/17 09:37 Tab-A-Vit - PO 1 tab DAILY THOMAS Administration Nifedipine 30 mg 11/09/17 10:00 11/09/17 09:37 Procardia Xl - PO 30 mg DAILY THOMAS Administration
[2017-11-08] MEDS ORDERED: HEPARIN NA (PORCINE) 5,000 UNITS/ML 1ML VIAL ONE (20:31)
[2017-11-08] MEDS ORDERED: FUROSEMIDE 40 MG TABLET (FP) ONE (20:31)
[2017-11-08] MEDS: FUROSEMIDE 40 MG TABLET (FP) PO SCH (20:40)
[2017-11-08] MEDS: DARUNAVIR ETHANOLATE 800 MG TAB PO SCH (22:16)
[2017-11-08] MEDS: HEPARIN NA (PORCINE) 5,000 UNITS/ML 1ML VIAL SQ SCH (22:16)
[2017-11-09] MEDS: METHADONE HCL 40 MG DISPERSABLE TABLET PO SCH (06:23)
[2017-11-09] MEDS: FUROSEMIDE 40 MG TABLET (FP) PO SCH ×2 (06:23→13:44)
--- NOTE | 2017-11-09 08:50 | PN ---
Progress Note (short form) - Note Progress Note: 67yo M h/o Right great toe ulcer with osteomyelitis was sent for admission for IV abx. Pt states that he has had wound for 1 month. Denies fever, chills, n/ v. Pt denies h/o vascular problems, but currently smokes 1/2 ppd. Last Vital Signs Temp Pulse Resp BP Pulse Ox 99.5 F 73 19 140/80 96 11/09/17 05:24 11/09/17 05:24 11/09/17 05:24 11/09/17 05:24 11/08/17 23:52 CBC, BMP 11/08/17 16:18 11/08/17 16:18 PE: Gen: A&O x3 Resp: breathing comfortably Abd: soft, nontender Ext: 1 cm ulceration on distal tip Right great toe, +2 pitting edema, Pedal pulse intact. Problem List - Problems (1) Osteomyelitis Assessment/Plan: Plan -pt will need supervisory historian abx for osteo -appreciate ID Abx recommendations -continue dry clean dressing with silvadene Code(s): M86.9 - OSTEOMYELITIS, UNSPECIFIED Qualifiers: Osteomyelitis type: unspecified type Osteomyelitis location: foot Laterality: right Qualified Code(s): M86.9 - Osteomyelitis, unspecified
[2017-11-09] MEDS ORDERED: PT OWN MED DRAWER 7, Y5N ONE ×2 (09:07→21:46)
[2017-11-09] MEDS: ATENOLOL 25 MG TABLET (FP) PO SCH (09:37)
[2017-11-09] MEDS: ABACAVIR SULFATE 300 MG TABLET PO SCH (09:37)
[2017-11-09] MEDS: lamiVUDine 150 MG TABLET PO SCH (09:37)
[2017-11-09] MEDS: NIFEdipine E.R. 30 MG TABLET (FP) PO SCH (09:37)
[2017-11-09] MEDS: MULTIVITAMINS (DAILY MVI) TABLET (FP) PO SCH (09:37)
[2017-11-09] MEDS: HEPARIN NA (PORCINE) 5,000 UNITS/ML 1ML VIAL SQ SCH ×2 (09:38→22:28)
[2017-11-09] MEDS ORDERED: PATIENT'S OWN MEDICATION (NON-FORMULARY) (Abacavir Sulfate/Lamivudine [Epzicom Tablet] 1 T PO SCH (10:00)
--- NOTE | 2017-11-09 14:17 | PN ---
Progress Note (short form) - Note Progress Note: ID Consult dictated Infected foot ulcer Osteomyelitis PCN allergy CKD HIV + asymptomatic Awake c/s Baseline ESR CRP Empiric ceftriaxone/ flagyl + Vanco x1 Surgical evaluation
--- NOTE | 2017-11-09 15:11 | EKG ---
Test Reason : Blood Pressure : / mmHG Vent. Rate : 059 BPM Atrial Rate : 059 BPM P-R Int : 178 ms QRS Dur : 160 ms QT Int : 498 ms P-R-T Axes : 056 080 030 degrees QTc Int : 493 ms SINUS BRADYCARDIA RIGHT BUNDLE BRANCH BLOCK ABNORMAL ECG WHEN COMPARED WITH ECG OF 17-SEP-2017 14:28, T WAVE INVERSION LESS EVIDENT IN ANTERIOR LEADS Confirmed by MD Nadeen, Damon ([id number]) on 11/09/2017 3:11:20 PM Referred By: Confirmed By:Damon Senior MD
--- NOTE | 2017-11-09 15:22 | CONS ---
INFECTIOUS DISEASE CONSULTATION DATE OF CONSULTATION: DATE OF DICTATION: 11/09/2017 The patient is a 67-year-old male who is evaluated for osteomyelitis of the right foot. He has a 2-month history of chronic, nonhealing right great toe plantar ulcer. He was apparently diagnosed with osteomyelitis 1 month ago. However, did not follow up with medical care. An MRI performed on October 20, 2017, confirmed the presence of osteomyelitis. He was referred from the wound care center to the emergency room for admission and initiation of IV antibiotic therapy. He has no complaints of pain. He denies any wound drainage. He is nondiabetic. He has a history of active tobacco use and a longstanding history of HIV infection which has been asymptomatic. PAST MEDICAL HISTORY: Positive for HIV infection dating back to 1991. Patient's risk factor was intravenous drug use. He has been off IV drugs for the past 30 years. He is maintained on antiretroviral therapy, and his T cells most recently were 270. Past medical history also includes hypertension, asthma, chronic kidney disease. ALLERGIES: ASPIRIN and PENICILLIN. Patient reports the PENICILLIN allergy occurred many years ago when he was a child. The exact nature of this was not elicited. He denies history of anaphylactic reaction. MEDICATIONS: Include Epzicom, Prezista, Tenormin, Ventolin, Lasix, methadone. SOCIAL HISTORY: Positive for tobacco. Positive former IV drug user on methadone. LABORATORY DATA: White count 3.9, hematocrit 34.5, platelet count 154. BUN 52, creatinine 3.0. Cultures pending. Chest x-ray negative. MRI of the right foot performed on October 20, 2017, showed soft tissue edema of the foot with an open wound on the plantar aspect of the great toe, deformity and bone edema of the distal phalanx of the great toe suggestive of osteomyelitis. SYSTEMS REVIEW: Neurologic: No loss of consciousness, seizure activity, focal weakness. Cardiac: Negative chest pain or palpitations. Respiratory: Negative cough or sputum production. Gastrointestinal: Negative vomiting or diarrhea. Genitourinary: Positive for chronic kidney disease. PHYSICAL EXAMINATION: General: He is awake and alert, not acutely toxic appearing. Vital Signs: Temperature 99.5; blood pressure 140/80; pulse 73, regular; respirations 19 per minute. HEENT: Sclerae are anicteric. Heart: Sounds S1, S2. Lungs: Clear. Abdomen: Soft and nontender. Right Foot: There is a necrotic ulceration present on the plantar aspect of the right great toe. No purulent drainage is noted. However, it is malodorous. There is diffuse swelling of the feet bilaterally extending to the distal legs. IMPRESSION: 1. Infected right great toe ulcer. 2. Chronic osteomyelitis of the right great toe. 3. PENICILLIN allergy. 4. Chronic kidney disease. 5. Human immunodeficiency virus positive, asymptomatic. Await cultures. Obtain baseline ESR and C-reactive protein. Empiric antibiotic coverage with ceftriaxone and Flagyl plus stat dose of vancomycin. Surgical evaluation for debridement. Will need long-term IV antibiotic therapy as an outpatient and local wound care. Will follow. Thank you for the kind referral. JUSTIN JOHN M.D. [id number]
[2017-11-09] MEDS ORDERED: DEXTROSE 5%-WATER - 50 ML IVPB ONE (16:12)
[2017-11-09] MEDS ORDERED: cefTRIAXone SODIUM 1 GM VIAL ONE (16:12)
[2017-11-09] MEDS: CEFTRIAXONE 1 GM in DEXTROSE 5%-WATER - 50 ML IVPB SCH ×2 (16:20→21:35)
[2017-11-09] MEDS: VANCOMYCIN 1 GM PREMIX - 1 GM/200 ML BAG IVPB ONE ×2 (17:37→22:17)
--- NOTE | 2017-11-09 18:03 | PN ---
Progress Note, Physician History of Present Illness: feeling good - Current Medication List Current Medications: Active Medications Abacavir Sulfate (Ziagen -) 600 mg PO DAILY [facility] Last Admin: 11/09/17 09:37 Dose: 600 mg Albuterol Sulfate (Ventolin Hfa Inhaler -) 1 puff IH Q6H PRN PRN Reason: SHORT OF BREATH/WHEEZING Atenolol (Tenormin -) 25 mg PO DAILY [facility] Last Admin: 11/09/17 09:37 Dose: 25 mg Darunavir (Prezista -) 800 mg PO HS [facility] Last Admin: 11/08/17 22:16 Dose: 800 mg Furosemide (Lasix -) 40 mg PO BIDLASIX [facility] Last Admin: 11/09/17 13:44 Dose: 40 mg Heparin Sodium (Porcine) (Heparin -) 5,000 unit SQ BID [facility] Last Admin: 11/09/17 09:38 Dose: 5,000 unit Ceftriaxone Sodium 1 gm/ (Dextrose) 50 mls @ 100 mls/hr IVPB DAILY [facility]; Protocol Last Admin: 11/09/17 16:20 Dose: 100 mls/hr Metronidazole (Flagyl 500mg Premixed Ivpb -) 500 mg in 100 mls @ 100 mls/hr IVPB Q8H-IV [facility] Last Admin: 11/09/17 17:21 Dose: Not Given Lamivudine (Epivir -) 300 mg PO DAILY [facility] Last Admin: 11/09/17 09:37 Dose: 300 mg Methadone HCl (Dolophine -) 80 mg PO DAILY@0600 [facility] Last Admin: 11/09/17 06:23 Dose: 80 mg Multivitamins/Minerals/Vitamin C (Tab-A-Vit -) 1 tab PO DAILY [facility] Last Admin: 11/09/17 09:37 Dose: 1 tab Nifedipine (Procardia Xl -) 30 mg PO DAILY [facility] Last Admin: 11/09/17 09:37 Dose: 30 mg - Objective Vital Signs: Vital Signs Temperature 96.2 F L 11/09/17 14:56 Pulse Rate 57 L 11/09/17 14:56 Respiratory Rate 18 11/09/17 14:56 Blood Pressure 126/58 11/09/17 14:56 O2 Sat by Pulse Oximetry (%) 96 11/08/17 23:52 Constitutional: Yes: No Distress HENT: Yes: Atraumatic Neck: Yes: Supple Cardiovascular: Yes: Regular Rate and Rhythm Respiratory: Yes: CTA Bilaterally Gastrointestinal: Yes: Normal Bowel Sounds Extremities: Yes: Other (R big toe osteo/cellulitis) Neurological: Yes: Alert, Oriented Labs: CBC, BMP 11/08/17 16:18 11/08/17 16:18 INR, PTT INR 0.97 (0.82-1.09) 11/08/17 16:18 Problem List - Problems (1) Osteomyelitis Assessment/Plan: R big toe iv abx wound care id consult Code(s): M86.9 - OSTEOMYELITIS, UNSPECIFIED Qualifiers: Osteomyelitis type: unspecified type Osteomyelitis location: foot Laterality: right Qualified Code(s): M86.9 - Osteomyelitis, unspecified (2) Asthma Assessment/Plan: stable Code(s): J45.909 - UNSPECIFIED ASTHMA, UNCOMPLICATED (3) HIV disease Assessment/Plan: on meds Code(s): B20 - HUMAN IMMUNODEFICIENCY VIRUS [HIV] DISEASE (4) Hypertension Assessment/Plan: on meds Code(s): I10 - ESSENTIAL (PRIMARY) HYPERTENSION
[2017-11-09] MEDS: DARUNAVIR ETHANOLATE 800 MG TAB PO SCH (22:27)
[2017-11-10] MEDS: FUROSEMIDE 40 MG TABLET (FP) PO SCH ×2 (05:44→14:33)
[2017-11-10] MEDS: METHADONE HCL 40 MG DISPERSABLE TABLET PO SCH (05:45)
[2017-11-10] MEDS ORDERED: cefTRIAXone SODIUM 1 GM VIAL ONE (08:43)
[2017-11-10] MEDS ORDERED: DEXTROSE 5%-WATER - 50 ML IVPB ONE (08:44)
[2017-11-10] MEDS: NIFEdipine E.R. 30 MG TABLET (FP) PO SCH (09:01)
[2017-11-10] MEDS: ATENOLOL 25 MG TABLET (FP) PO SCH (09:01)
[2017-11-10] MEDS: MULTIVITAMINS (DAILY MVI) TABLET (FP) PO SCH (09:01)
[2017-11-10] MEDS: HEPARIN NA (PORCINE) 5,000 UNITS/ML 1ML VIAL SQ SCH ×2 (09:01→22:10)
[2017-11-10] MEDS: lamiVUDine 150 MG TABLET PO SCH (09:01)
[2017-11-10] MEDS: ABACAVIR SULFATE 300 MG TABLET PO SCH (09:02)
[2017-11-10] MEDS: CEFTRIAXONE 1 GM in DEXTROSE 5%-WATER - 50 ML IVPB SCH (09:03)
--- NOTE | 2017-11-10 12:14 | PN ---
Progress Note, Physician History of Present Illness: feeling good - Current Medication List Current Medications: Active Medications Abacavir Sulfate (Ziagen -) 600 mg PO DAILY [facility] Last Admin: 11/10/17 09:02 Dose: 600 mg Albuterol Sulfate (Ventolin Hfa Inhaler -) 1 puff IH Q6H PRN PRN Reason: SHORT OF BREATH/WHEEZING Atenolol (Tenormin -) 25 mg PO DAILY [facility] Last Admin: 11/10/17 09:01 Dose: 25 mg Darunavir (Prezista -) 800 mg PO HS [facility] Last Admin: 11/09/17 22:27 Dose: 800 mg Furosemide (Lasix -) 40 mg PO BIDLASIX [facility] Last Admin: 11/10/17 05:44 Dose: 40 mg Heparin Sodium (Porcine) (Heparin -) 5,000 unit SQ BID [facility] Last Admin: 11/10/17 09:01 Dose: 5,000 unit Ceftriaxone Sodium 1 gm/ (Dextrose) 50 mls @ 100 mls/hr IVPB DAILY [facility]; Protocol Last Admin: 11/10/17 09:03 Dose: 100 mls/hr Metronidazole (Flagyl 500mg Premixed Ivpb -) 500 mg in 100 mls @ 100 mls/hr IVPB Q8H-IV [facility] Last Admin: 11/10/17 11:51 Dose: Not Given Lamivudine (Epivir -) 300 mg PO DAILY [facility] Last Admin: 11/10/17 09:01 Dose: 300 mg Methadone HCl (Dolophine -) 80 mg PO DAILY@0600 [facility] Last Admin: 11/10/17 05:45 Dose: 80 mg Multivitamins/Minerals/Vitamin C (Tab-A-Vit -) 1 tab PO DAILY [facility] Last Admin: 11/10/17 09:01 Dose: 1 tab Nifedipine (Procardia Xl -) 30 mg PO DAILY [facility] Last Admin: 11/10/17 09:01 Dose: 30 mg - Objective Vital Signs: Vital Signs Temperature 98.2 F 11/10/17 08:00 Pulse Rate 68 11/10/17 08:00 Respiratory Rate 20 11/10/17 08:00 Blood Pressure 138/77 11/10/17 08:00 O2 Sat by Pulse Oximetry (%) 96 11/10/17 08:00 Constitutional: Yes: No Distress HENT: Yes: Atraumatic Neck: Yes: Supple Cardiovascular: Yes: Regular Rate and Rhythm Respiratory: Yes: CTA Bilaterally Gastrointestinal: Yes: Normal Bowel Sounds Extremities: Yes: Other (R toe osteo) Neurological: Yes: Alert, Oriented Labs: CBC, BMP 11/08/17 16:18 11/08/17 16:18 INR, PTT INR 0.97 (0.82-1.09) 11/08/17 16:18 Problem List - Problems (1) Osteomyelitis Assessment/Plan: R big toe iv abx wound care id consult Code(s): M86.9 - OSTEOMYELITIS, UNSPECIFIED Qualifiers: Osteomyelitis type: unspecified type Osteomyelitis location: foot Laterality: right Qualified Code(s): M86.9 - Osteomyelitis, unspecified (2) Asthma Assessment/Plan: stable Code(s): J45.909 - UNSPECIFIED ASTHMA, UNCOMPLICATED (3) HIV disease Assessment/Plan: on meds Code(s): B20 - HUMAN IMMUNODEFICIENCY VIRUS [HIV] DISEASE (4) Hypertension Assessment/Plan: on meds Code(s): I10 - ESSENTIAL (PRIMARY) HYPERTENSION
--- NOTE | 2017-11-10 13:44 | PN ---
Progress Note, Physician History of Present Illness: No c/o foot pain No fever/ chills Tolerated cephalosporin without adverse rxn - Current Medication List Current Medications: Active Medications Abacavir Sulfate (Ziagen -) 600 mg PO DAILY [facility] Last Admin: 11/10/17 09:02 Dose: 600 mg Albuterol Sulfate (Ventolin Hfa Inhaler -) 1 puff IH Q6H PRN PRN Reason: SHORT OF BREATH/WHEEZING Atenolol (Tenormin -) 25 mg PO DAILY [facility] Last Admin: 11/10/17 09:01 Dose: 25 mg Darunavir (Prezista -) 800 mg PO HS [facility] Last Admin: 11/09/17 22:27 Dose: 800 mg Furosemide (Lasix -) 40 mg PO BIDLASIX [facility] Last Admin: 11/10/17 05:44 Dose: 40 mg Heparin Sodium (Porcine) (Heparin -) 5,000 unit SQ BID [facility] Last Admin: 11/10/17 09:01 Dose: 5,000 unit Ceftriaxone Sodium 1 gm/ (Dextrose) 50 mls @ 100 mls/hr IVPB DAILY [facility]; Protocol Last Admin: 11/10/17 09:03 Dose: 100 mls/hr Metronidazole (Flagyl 500mg Premixed Ivpb -) 500 mg in 100 mls @ 100 mls/hr IVPB Q8H-IV [facility] Last Admin: 11/10/17 11:51 Dose: Not Given Lamivudine (Epivir -) 300 mg PO DAILY [facility] Last Admin: 11/10/17 09:01 Dose: 300 mg Methadone HCl (Dolophine -) 80 mg PO DAILY@0600 [facility] Last Admin: 11/10/17 05:45 Dose: 80 mg Multivitamins/Minerals/Vitamin C (Tab-A-Vit -) 1 tab PO DAILY [facility] Last Admin: 11/10/17 09:01 Dose: 1 tab Nifedipine (Procardia Xl -) 30 mg PO DAILY [facility] Last Admin: 11/10/17 09:01 Dose: 30 mg - Objective Vital Signs: Vital Signs Temperature 98.2 F 11/10/17 08:00 Pulse Rate 68 11/10/17 08:00 Respiratory Rate 20 11/10/17 08:00 Blood Pressure 138/77 11/10/17 08:00 O2 Sat by Pulse Oximetry (%) 96 11/10/17 08:00 Constitutional: Yes: No Distress Eyes: Yes: Conjunctiva Clear Cardiovascular: Yes: Regular Rate and Rhythm, S1, S2 Respiratory: Yes: CTA Bilaterally Gastrointestinal: Yes: Normal Bowel Sounds, Soft. No: Tenderness Extremities: Yes: Other (great to plantar ulcer dry. No drainage) Labs: CBC, BMP 18 16:18 18 16:18 INR, PTT INR 0.97 (0.82-1.09) 11/08/17 16:18 Assessment/Plan Infected great toe ulcer/ osteomyelitis HIV + Wound c/s pending- polymicrobial Will need PICC for intermediate teacher antibiotic therapy
[2017-11-10] MEDS ORDERED: PT OWN MED DRAWER 7, Y5N ONE (21:53)
[2017-11-10] MEDS: DARUNAVIR ETHANOLATE 800 MG TAB PO SCH (22:11)
[2017-11-11] MEDS: FUROSEMIDE 40 MG TABLET (FP) PO SCH ×2 (05:46→14:30)
[2017-11-11] MEDS: METHADONE HCL 40 MG DISPERSABLE TABLET PO SCH (05:47)
[2017-11-11] MEDS ORDERED: cefTRIAXone SODIUM 1 GM VIAL ONE (09:34)
[2017-11-11] MEDS ORDERED: PT OWN MED DRAWER 7, Y5N ONE ×2 (09:34→22:01)
[2017-11-11] MEDS ORDERED: DEXTROSE 5%-WATER - 50 ML IVPB ONE (09:34)
[2017-11-11] MEDS: HEPARIN NA (PORCINE) 5,000 UNITS/ML 1ML VIAL SQ SCH ×2 (09:38→22:34)
[2017-11-11] MEDS: ATENOLOL 25 MG TABLET (FP) PO SCH (09:38)
[2017-11-11] MEDS: CEFTRIAXONE 1 GM in DEXTROSE 5%-WATER - 50 ML IVPB SCH (09:38)
[2017-11-11] MEDS: NIFEdipine E.R. 30 MG TABLET (FP) PO SCH (09:38)
[2017-11-11] MEDS: MULTIVITAMINS (DAILY MVI) TABLET (FP) PO SCH (09:38)
[2017-11-11] MEDS: lamiVUDine 150 MG TABLET PO SCH (09:39)
[2017-11-11] MEDS: ABACAVIR SULFATE 300 MG TABLET PO SCH (09:39)
--- NOTE | 2017-11-11 13:39 | PN ---
Progress Note, Physician History of Present Illness: C/O worsening LE edema No c/o foot pain No fever/ chills Tolerated cephalosporin without adverse rxn Wound c/s polymicrobial, including MRSA - Current Medication List Current Medications: Active Medications Abacavir Sulfate (Ziagen -) 600 mg PO DAILY [facility] Last Admin: 11/11/17 09:39 Dose: 600 mg Albuterol Sulfate (Ventolin Hfa Inhaler -) 1 puff IH Q6H PRN PRN Reason: SHORT OF BREATH/WHEEZING Atenolol (Tenormin -) 25 mg PO DAILY [facility] Last Admin: 11/11/17 09:38 Dose: 25 mg Darunavir (Prezista -) 800 mg PO HS [facility] Last Admin: 11/10/17 22:11 Dose: 800 mg Furosemide (Lasix -) 40 mg PO BIDLASIX [facility] Last Admin: 11/11/17 05:46 Dose: 40 mg Heparin Sodium (Porcine) (Heparin -) 5,000 unit SQ BID [facility] Last Admin: 11/11/17 09:38 Dose: 5,000 unit IV Flush (Picc Line Flush) 8 ml IVPUSH PRN PRN PRN Reason: Protocol Ceftriaxone Sodium 1 gm/ (Dextrose) 50 mls @ 100 mls/hr IVPB DAILY [facility]; Protocol Last Admin: 11/11/17 09:38 Dose: 100 mls/hr Metronidazole (Flagyl 500mg Premixed Ivpb -) 500 mg in 100 mls @ 100 mls/hr IVPB Q8H-IV [facility] Last Admin: 11/11/17 09:38 Dose: 100 mls/hr Vancomycin HCl 1,000 mg/ (Dextrose) 250 mls @ 166.667 mls/hr IVPB ONCE ONE; Protocol Stop: 11/11/17 15:03 Lamivudine (Epivir -) 300 mg PO DAILY [facility] Last Admin: 11/11/17 09:39 Dose: 300 mg Methadone HCl (Dolophine -) 80 mg PO DAILY@0600 [facility] Last Admin: 11/11/17 05:47 Dose: 80 mg Multivitamins/Minerals/Vitamin C (Tab-A-Vit -) 1 tab PO DAILY [facility] Last Admin: 11/11/17 09:38 Dose: 1 tab Nifedipine (Procardia Xl -) 30 mg PO DAILY [facility] Last Admin: 11/11/17 09:38 Dose: 30 mg - Objective Vital Signs: Vital Signs Temperature 97.4 F L 11/11/17 05:48 Pulse Rate 58 L 11/11/17 05:48 Respiratory Rate 20 11/11/17 05:48 Blood Pressure 105/60 11/11/17 05:48 O2 Sat by Pulse Oximetry (%) 96 11/10/17 21:00 Constitutional: Yes: No Distress Eyes: Yes: Conjunctiva Clear Cardiovascular: Yes: Regular Rate and Rhythm, S1, S2 Respiratory: Yes: CTA Bilaterally Gastrointestinal: Yes: Normal Bowel Sounds, Soft Extremities: Yes: Other (necrotic plantar ulcer , great toe No drainage) Edema: LLE: 2+, RLE: 2+ Labs: CBC, BMP 11/08/17 16:18 11/08/17 16:18 INR, PTT INR 0.97 (0.82-1.09) 11/08/17 16:18 Assessment/Plan Infected great toe ulcer/ osteomyelitis HIV + Worsening LE edema Wound c/s pending- polymicrobial Will need PICC for jail antibiotic therapy Continue ceftriaxone/ flagyl Redose vancomycin Will order doppler LE R/O DVT Surgical follow up
[2017-11-11] MEDS ORDERED: VANCOMYCIN 1,000 MG in DEXTROSE 5%-WATER - 250 ML IVPB ONE (14:00)
--- NOTE | 2017-11-11 18:54 | PN ---
Progress Note, Physician - Current Medication List Current Medications: Active Medications Abacavir Sulfate (Ziagen -) 600 mg PO DAILY [facility] Last Admin: 11/11/17 09:39 Dose: 600 mg Albuterol Sulfate (Ventolin Hfa Inhaler -) 1 puff IH Q6H PRN PRN Reason: SHORT OF BREATH/WHEEZING Atenolol (Tenormin -) 25 mg PO DAILY [facility] Last Admin: 11/11/17 09:38 Dose: 25 mg Darunavir (Prezista -) 800 mg PO HS [facility] Last Admin: 11/10/17 22:11 Dose: 800 mg Furosemide (Lasix -) 40 mg PO BIDLASIX [facility] Last Admin: 11/11/17 14:30 Dose: 40 mg Heparin Sodium (Porcine) (Heparin -) 5,000 unit SQ BID [facility] Last Admin: 11/11/17 09:38 Dose: 5,000 unit IV Flush (Picc Line Flush) 8 ml IVPUSH PRN PRN PRN Reason: Protocol Ceftriaxone Sodium 1 gm/ (Dextrose) 50 mls @ 100 mls/hr IVPB DAILY [facility]; Protocol Last Admin: 11/11/17 09:38 Dose: 100 mls/hr Metronidazole (Flagyl 500mg Premixed Ivpb -) 500 mg in 100 mls @ 100 mls/hr IVPB Q8H-IV [facility] Last Admin: 11/11/17 18:16 Dose: 100 mls/hr Lamivudine (Epivir -) 300 mg PO DAILY [facility] Last Admin: 11/11/17 09:39 Dose: 300 mg Methadone HCl (Dolophine -) 80 mg PO DAILY@0600 [facility] Last Admin: 11/11/17 05:47 Dose: 80 mg Multivitamins/Minerals/Vitamin C (Tab-A-Vit -) 1 tab PO DAILY [facility] Last Admin: 11/11/17 09:38 Dose: 1 tab Nifedipine (Procardia Xl -) 30 mg PO DAILY [facility] Last Admin: 11/11/17 09:38 Dose: 30 mg - Objective Vital Signs: Vital Signs Temperature 98.5 F 11/11/17 08:00 Pulse Rate 79 11/11/17 08:00 Respiratory Rate 20 11/11/17 08:00 Blood Pressure 124/62 11/11/17 08:00 O2 Sat by Pulse Oximetry (%) 96 11/11/17 08:00 Constitutional: Yes: No Distress HENT: Yes: Atraumatic Neck: Yes: Supple Cardiovascular: Yes: Regular Rate and Rhythm Respiratory: Yes: CTA Bilaterally Gastrointestinal: Yes: Normal Bowel Sounds Extremities: Yes: Other (R foot in dressing) Neurological: Yes: Alert, Oriented Labs: CBC, BMP 11/08/17 16:18 11/08/17 16:18 INR, PTT INR 0.97 (0.82-1.09) 11/08/17 16:18 Problem List - Problems (1) Osteomyelitis Assessment/Plan: R big toe iv abx wound care id consult dvt negative both legs Code(s): M86.9 - OSTEOMYELITIS, UNSPECIFIED Qualifiers: Osteomyelitis type: unspecified type Osteomyelitis location: foot Laterality: right Qualified Code(s): M86.9 - Osteomyelitis, unspecified (2) Asthma Assessment/Plan: stable Code(s): J45.909 - UNSPECIFIED ASTHMA, UNCOMPLICATED (3) HIV disease Assessment/Plan: on meds Code(s): B20 - HUMAN IMMUNODEFICIENCY VIRUS [HIV] DISEASE (4) Hypertension Assessment/Plan: on meds Code(s): I10 - ESSENTIAL (PRIMARY) HYPERTENSION
[2017-11-11] MEDS: DARUNAVIR ETHANOLATE 800 MG TAB PO SCH (22:34)
[2017-11-12] MEDS: METHADONE HCL 40 MG DISPERSABLE TABLET PO SCH (06:12)
[2017-11-12] MEDS: FUROSEMIDE 40 MG TABLET (FP) PO SCH ×2 (06:13→13:32)
[2017-11-12] MEDS ORDERED: DEXTROSE 5%-WATER - 50 ML IVPB ONE (08:59)
[2017-11-12] MEDS ORDERED: cefTRIAXone SODIUM 1 GM VIAL ONE (08:59)
[2017-11-12] MEDS: HEPARIN NA (PORCINE) 5,000 UNITS/ML 1ML VIAL SQ SCH ×2 (09:06→21:17)
[2017-11-12] MEDS: CEFTRIAXONE 1 GM in DEXTROSE 5%-WATER - 50 ML IVPB SCH (09:06)
[2017-11-12] MEDS: MULTIVITAMINS (DAILY MVI) TABLET (FP) PO SCH (09:07)
[2017-11-12] MEDS: NIFEdipine E.R. 30 MG TABLET (FP) PO SCH (09:07)
[2017-11-12] MEDS: ATENOLOL 25 MG TABLET (FP) PO SCH (09:07)
[2017-11-12] MEDS ORDERED: PT OWN MED DRAWER 7, Y5N ONE ×3 (09:24→20:58)
[2017-11-12] MEDS: ABACAVIR SULFATE 300 MG TABLET PO SCH (09:28)
[2017-11-12] MEDS: lamiVUDine 150 MG TABLET PO SCH (09:29)
--- NOTE | 2017-11-12 14:06 | PN ---
Progress Note, Physician History of Present Illness: feeling good - Current Medication List Current Medications: Active Medications Abacavir Sulfate (Ziagen -) 600 mg PO DAILY [facility] Last Admin: 11/12/17 09:28 Dose: 600 mg Albuterol Sulfate (Ventolin Hfa Inhaler -) 1 puff IH Q6H PRN PRN Reason: SHORT OF BREATH/WHEEZING Atenolol (Tenormin -) 25 mg PO DAILY [facility] Last Admin: 11/12/17 09:07 Dose: 25 mg Darunavir (Prezista -) 800 mg PO HS [facility] Last Admin: 11/11/17 22:34 Dose: 800 mg Furosemide (Lasix -) 40 mg PO BIDLASIX [facility] Last Admin: 11/12/17 13:32 Dose: 40 mg Heparin Sodium (Porcine) (Heparin -) 5,000 unit SQ BID [facility] Last Admin: 11/12/17 09:06 Dose: 5,000 unit IV Flush (Picc Line Flush) 8 ml IVPUSH PRN PRN PRN Reason: Protocol Ceftriaxone Sodium 1 gm/ (Dextrose) 50 mls @ 100 mls/hr IVPB DAILY [facility]; Protocol Last Admin: 11/12/17 09:06 Dose: 100 mls/hr Metronidazole (Flagyl 500mg Premixed Ivpb -) 500 mg in 100 mls @ 100 mls/hr IVPB Q8H-IV [facility] Last Admin: 11/12/17 10:35 Dose: 100 mls/hr Lamivudine (Epivir -) 300 mg PO DAILY [facility] Last Admin: 11/12/17 09:29 Dose: 300 mg Methadone HCl (Dolophine -) 80 mg PO DAILY@0600 [facility] Last Admin: 11/12/17 06:12 Dose: 80 mg Multivitamins/Minerals/Vitamin C (Tab-A-Vit -) 1 tab PO DAILY [facility] Last Admin: 11/12/17 09:07 Dose: 1 tab Nifedipine (Procardia Xl -) 30 mg PO DAILY [facility] Last Admin: 11/12/17 09:07 Dose: 30 mg - Objective Vital Signs: Vital Signs Temperature 97.0 F L 11/12/17 09:00 Pulse Rate 97 H 11/12/17 09:00 Respiratory Rate 17 11/12/17 09:00 Blood Pressure 106/62 11/12/17 09:00 O2 Sat by Pulse Oximetry (%) 97 11/12/17 09:00 Constitutional: Yes: No Distress HENT: Yes: Atraumatic Neck: Yes: Supple Cardiovascular: Yes: Regular Rate and Rhythm Respiratory: Yes: CTA Bilaterally Gastrointestinal: Yes: Normal Bowel Sounds Extremities: Yes: Other (r foot cellulitis/osteo) Edema: Yes Edema: RLE: 1+ (foot) Neurological: Yes: Alert, Oriented Labs: CBC, BMP 11/08/17 16:18 11/08/17 16:18 INR, PTT INR 0.97 (0.82-1.09) 11/08/17 16:18 Problem List - Problems (1) Osteomyelitis Assessment/Plan: R big toe iv abx wound care id consult dvt negative both legs Code(s): M86.9 - OSTEOMYELITIS, UNSPECIFIED Qualifiers: Osteomyelitis type: unspecified type Osteomyelitis location: foot Laterality: right Qualified Code(s): M86.9 - Osteomyelitis, unspecified (2) Asthma Assessment/Plan: stable Code(s): J45.909 - UNSPECIFIED ASTHMA, UNCOMPLICATED (3) HIV disease Assessment/Plan: on meds Code(s): B20 - HUMAN IMMUNODEFICIENCY VIRUS [HIV] DISEASE (4) Hypertension Code(s): I10 - ESSENTIAL (PRIMARY) HYPERTENSION
--- NOTE | 2017-11-12 15:33 | PN ---
Progress Note, Physician History of Present Illness: Seen in IR Receiving tunnelled catheter No c/o foot pain No fever/ chills Tolerated cephalosporin without adverse rxn Wound c/s polymicrobial, including MRSA, Pseudomonas - Current Medication List Current Medications: Active Medications Abacavir Sulfate (Ziagen -) 600 mg PO DAILY [facility] Last Admin: 11/12/17 09:28 Dose: 600 mg Albuterol Sulfate (Ventolin Hfa Inhaler -) 1 puff IH Q6H PRN PRN Reason: SHORT OF BREATH/WHEEZING Atenolol (Tenormin -) 25 mg PO DAILY [facility] Last Admin: 11/12/17 09:07 Dose: 25 mg Darunavir (Prezista -) 800 mg PO HS [facility] Last Admin: 11/11/17 22:34 Dose: 800 mg Furosemide (Lasix -) 40 mg PO BIDLASIX [facility] Last Admin: 11/12/17 13:32 Dose: 40 mg Heparin Sodium (Porcine) (Heparin -) 5,000 unit SQ BID [facility] Last Admin: 11/12/17 09:06 Dose: 5,000 unit IV Flush (Picc Line Flush) 8 ml IVPUSH PRN PRN PRN Reason: Protocol Ceftriaxone Sodium 1 gm/ (Dextrose) 50 mls @ 100 mls/hr IVPB DAILY [facility]; Protocol Last Admin: 11/12/17 09:06 Dose: 100 mls/hr Metronidazole (Flagyl 500mg Premixed Ivpb -) 500 mg in 100 mls @ 100 mls/hr IVPB Q8H-IV [facility] Last Admin: 11/12/17 10:35 Dose: 100 mls/hr Lamivudine (Epivir -) 300 mg PO DAILY [facility] Last Admin: 11/12/17 09:29 Dose: 300 mg Methadone HCl (Dolophine -) 80 mg PO DAILY@0600 [facility] Last Admin: 11/12/17 06:12 Dose: 80 mg Multivitamins/Minerals/Vitamin C (Tab-A-Vit -) 1 tab PO DAILY [facility] Last Admin: 11/12/17 09:07 Dose: 1 tab Nifedipine (Procardia Xl -) 30 mg PO DAILY [facility] Last Admin: 11/12/17 09:07 Dose: 30 mg - Objective Vital Signs: Vital Signs Temperature 97.0 F L 11/12/17 09:00 Pulse Rate 70 06/22/18 15:24 Respiratory Rate 12 11/12/17 15:24 Blood Pressure 123/66 11/12/17 15:24 O2 Sat by Pulse Oximetry (%) 99 11/12/17 15:24 Constitutional: Yes: No Distress Cardiovascular: Yes: Regular Rate and Rhythm, S1, S2 Respiratory: Yes: CTA Bilaterally Gastrointestinal: Yes: Normal Bowel Sounds, Soft. No: Tenderness Extremities: Yes: Other (Great toe ulcer no drainage) Edema: Yes Labs: CBC, BMP 11/08/17 16:18 11/08/17 16:18 INR, PTT INR 0.97 (0.82-1.09) 11/08/17 16:18 Assessment/Plan Infected great toe ulcer/ osteomyelitis HIV + For discharge to SNF for outpatient antibiotics for chronic osteomyelitis: Cefepime 1gm IVPB daily Vancomycin 1gm IVPB q48h next dose 11/13/17 Both x 37 days Maintain vanco trough approx 15 Check weekly ESR CRP + Flagyl 500mg po tid x 2weeks
[2017-11-12] MEDS: metroNIDAZOLE 250 MG TABLET PO SCH (21:17)
[2017-11-12] MEDS: DARUNAVIR ETHANOLATE 800 MG TAB PO SCH (21:18)
[2017-11-13] MEDS: METHADONE HCL 40 MG DISPERSABLE TABLET PO SCH (06:04)
[2017-11-13] MEDS: FUROSEMIDE 40 MG TABLET (FP) PO SCH ×2 (06:05→13:56)
[2017-11-13] MEDS: metroNIDAZOLE 250 MG TABLET PO SCH ×3 (06:05→21:52)
[2017-11-13] MEDS ORDERED: PT OWN MED DRAWER 7, Y5N ONE ×2 (10:28→20:49)
[2017-11-13] MEDS: HEPARIN NA (PORCINE) 5,000 UNITS/ML 1ML VIAL SQ SCH ×2 (10:45→21:52)
[2017-11-13] MEDS: CEFEPIME HCL/D5W 1 GM/50 ML BAG IVPB SCH (10:45)
[2017-11-13] MEDS: ATENOLOL 25 MG TABLET (FP) PO SCH (10:46)
[2017-11-13] MEDS: ABACAVIR SULFATE 300 MG TABLET PO SCH (10:46)
[2017-11-13] MEDS: NIFEdipine E.R. 30 MG TABLET (FP) PO SCH (10:46)
[2017-11-13] MEDS: lamiVUDine 150 MG TABLET PO SCH (10:46)
[2017-11-13] MEDS: MULTIVITAMINS (DAILY MVI) TABLET (FP) PO SCH (10:46)
[2017-11-13] MEDS: DARUNAVIR ETHANOLATE 800 MG TAB PO SCH (21:53)
[2017-11-14] MEDS: metroNIDAZOLE 250 MG TABLET PO SCH ×3 (06:13→21:09)
[2017-11-14] MEDS: FUROSEMIDE 40 MG TABLET (FP) PO SCH ×2 (06:13→14:36)
[2017-11-14] MEDS: METHADONE HCL 40 MG DISPERSABLE TABLET PO SCH (06:13)
[2017-11-14] MEDS ORDERED: PT OWN MED DRAWER 7, Y5N ONE ×2 (09:08→21:04)
[2017-11-14] MEDS: CEFEPIME HCL/D5W 1 GM/50 ML BAG IVPB SCH (10:08)
[2017-11-14] MEDS: lamiVUDine 150 MG TABLET PO SCH (10:09)
[2017-11-14] MEDS: HEPARIN NA (PORCINE) 5,000 UNITS/ML 1ML VIAL SQ SCH ×2 (10:09→21:08)
[2017-11-14] MEDS: NIFEdipine E.R. 30 MG TABLET (FP) PO SCH (10:10)
[2017-11-14] MEDS: ABACAVIR SULFATE 300 MG TABLET PO SCH (10:10)
[2017-11-14] MEDS: MULTIVITAMINS (DAILY MVI) TABLET (FP) PO SCH (10:10)
[2017-11-14] MEDS: ATENOLOL 25 MG TABLET (FP) PO SCH (10:10)
--- NOTE | 2017-11-14 17:05 | PN ---
Progress Note, Physician History of Present Illness: feeling good - Current Medication List Current Medications: Active Medications Abacavir Sulfate (Ziagen -) 600 mg PO DAILY [facility] Last Admin: 11/14/17 10:10 Dose: 600 mg Albuterol Sulfate (Ventolin Hfa Inhaler -) 1 puff IH Q6H PRN PRN Reason: SHORT OF BREATH/WHEEZING Atenolol (Tenormin -) 25 mg PO DAILY [facility] Last Admin: 11/14/17 10:10 Dose: 25 mg Darunavir (Prezista -) 800 mg PO HS [facility] Last Admin: 11/13/17 21:53 Dose: 800 mg Furosemide (Lasix -) 40 mg PO BIDLASIX [facility] Last Admin: 11/14/17 14:36 Dose: 40 mg Heparin Sodium (Porcine) (Heparin -) 5,000 unit SQ BID [facility] Last Admin: 11/14/17 10:09 Dose: 5,000 unit IV Flush (Picc Line Flush) 8 ml IVPUSH PRN PRN PRN Reason: Protocol Cefepime HCl (Maxipime 1 Gm Premix Ivpb) 1 gm in 50 mls @ 100 mls/hr IVPB DAILY [facility]; Protocol Last Admin: 11/14/17 10:08 Dose: 100 mls/hr Lamivudine (Epivir -) 300 mg PO DAILY [facility] Last Admin: 11/14/17 10:09 Dose: 300 mg Methadone HCl (Dolophine -) 80 mg PO DAILY@0600 [facility] Last Admin: 11/14/17 06:13 Dose: 80 mg Metronidazole (Flagyl -) 500 mg PO TID [facility] Last Admin: 11/14/17 14:36 Dose: 500 mg Multivitamins/Minerals/Vitamin C (Tab-A-Vit -) 1 tab PO DAILY [facility] Last Admin: 11/14/17 10:10 Dose: 1 tab Nifedipine (Procardia Xl -) 30 mg PO DAILY [facility] Last Admin: 11/14/17 10:10 Dose: 30 mg - Objective Vital Signs: Vital Signs Temperature 97.9 F 11/14/17 08:00 Pulse Rate 73 11/14/17 08:00 Respiratory Rate 20 11/14/17 08:00 Blood Pressure 118/66 11/14/17 08:00 O2 Sat by Pulse Oximetry (%) 96 11/14/17 08:00 Constitutional: Yes: No Distress HENT: Yes: Atraumatic Neck: Yes: Supple Cardiovascular: Yes: Regular Rate and Rhythm Respiratory: Yes: CTA Bilaterally Gastrointestinal: Yes: Normal Bowel Sounds Extremities: Yes: Other (R foot) Neurological: Yes: Alert, Oriented Labs: CBC, BMP 11/08/17 16:18 11/08/17 16:18 INR, PTT INR 0.97 (0.82-1.09) 11/08/17 16:18 Problem List - Problems (1) Osteomyelitis Assessment/Plan: R big toe iv abx wound care id consult dvt negative both legs Code(s): M86.9 - OSTEOMYELITIS, UNSPECIFIED Qualifiers: Osteomyelitis type: unspecified type Osteomyelitis location: foot Laterality: right Qualified Code(s): M86.9 - Osteomyelitis, unspecified (2) Asthma Assessment/Plan: stable Code(s): J45.909 - UNSPECIFIED ASTHMA, UNCOMPLICATED (3) HIV disease Assessment/Plan: on meds Code(s): B20 - HUMAN IMMUNODEFICIENCY VIRUS [HIV] DISEASE (4) Hypertension Assessment/Plan: on meds Code(s): I10 - ESSENTIAL (PRIMARY) HYPERTENSION Assessment/Plan dc to snf
[2017-11-14] MEDS: DARUNAVIR ETHANOLATE 800 MG TAB PO SCH (21:09)
[2017-11-15] MEDS: METHADONE HCL 40 MG DISPERSABLE TABLET PO SCH (06:02)
[2017-11-15] MEDS: FUROSEMIDE 40 MG TABLET (FP) PO SCH ×2 (06:03→14:25)
[2017-11-15] MEDS: metroNIDAZOLE 250 MG TABLET PO SCH ×3 (06:03→21:29)
[2017-11-15] MEDS ORDERED: PT OWN MED DRAWER 7, Y5N ONE ×3 (10:19→10:49)
[2017-11-15] MEDS: MULTIVITAMINS (DAILY MVI) TABLET (FP) PO SCH (10:22)
[2017-11-15] MEDS: NIFEdipine E.R. 30 MG TABLET (FP) PO SCH (10:22)
[2017-11-15] MEDS: HEPARIN NA (PORCINE) 5,000 UNITS/ML 1ML VIAL SQ SCH (10:22)
[2017-11-15] MEDS: ATENOLOL 25 MG TABLET (FP) PO SCH (10:22)
[2017-11-15] MEDS: lamiVUDine 150 MG TABLET PO SCH (10:23)
[2017-11-15] MEDS: CEFEPIME HCL/D5W 1 GM/50 ML BAG IVPB SCH (10:23)
[2017-11-15] MEDS: ABACAVIR SULFATE 300 MG TABLET PO SCH (10:25)
[2017-11-15 11:51] VITALS: BMI 26.0
[2017-11-15] MEDS: DARUNAVIR ETHANOLATE 800 MG TAB PO SCH (21:29)
--- NOTE | 2017-11-15 21:49 | PN ---
Progress Note, Physician - Current Medication List Current Medications: Active Medications Abacavir Sulfate (Ziagen -) 600 mg PO DAILY [facility] Last Admin: 11/15/17 10:25 Dose: 600 mg Albuterol Sulfate (Ventolin Hfa Inhaler -) 1 puff IH Q6H PRN PRN Reason: SHORT OF BREATH/WHEEZING Atenolol (Tenormin -) 25 mg PO DAILY [facility] Last Admin: 11/15/17 10:22 Dose: 25 mg Darunavir (Prezista -) 800 mg PO HS [facility] Last Admin: 11/15/17 21:29 Dose: 800 mg Furosemide (Lasix -) 40 mg PO BIDLASIX [facility] Last Admin: 11/15/17 14:25 Dose: 40 mg Heparin Sodium (Porcine) (Heparin -) 5,000 unit SQ BID [facility] Last Admin: 11/15/17 10:22 Dose: 5,000 unit IV Flush (Picc Line Flush) 8 ml IVPUSH PRN PRN PRN Reason: Protocol Cefepime HCl (Maxipime 1 Gm Premix Ivpb) 1 gm in 50 mls @ 100 mls/hr IVPB DAILY [facility]; Protocol Last Admin: 11/15/17 10:23 Dose: 100 mls/hr Lamivudine (Epivir -) 300 mg PO DAILY [facility] Last Admin: 11/15/17 10:23 Dose: 300 mg Methadone HCl (Dolophine -) 80 mg PO DAILY@0600 [facility] Last Admin: 11/15/17 06:02 Dose: 80 mg Metronidazole (Flagyl -) 500 mg PO TID [facility] Last Admin: 11/15/17 21:29 Dose: 500 mg Multivitamins/Minerals/Vitamin C (Tab-A-Vit -) 1 tab PO DAILY [facility] Last Admin: 11/15/17 10:22 Dose: 1 tab Nifedipine (Procardia Xl -) 30 mg PO DAILY [facility] Last Admin: 11/15/17 10:22 Dose: 30 mg - Objective Vital Signs: Vital Signs Temperature 99.4 F 11/15/17 18:00 Pulse Rate 88 11/15/17 18:00 Respiratory Rate 20 11/15/17 18:00 Blood Pressure 102/77 11/15/17 18:00 O2 Sat by Pulse Oximetry (%) 96 11/15/17 10:00 Constitutional: Yes: No Distress HENT: Yes: Atraumatic Neck: Yes: Supple Cardiovascular: Yes: Regular Rate and Rhythm Respiratory: Yes: CTA Bilaterally Gastrointestinal: Yes: Normal Bowel Sounds Extremities: Yes: Other (R foot osteo) Edema: RLE: 1+ Neurological: Yes: Alert, Oriented Labs: CBC, BMP 11/08/17 16:18 11/08/17 16:18 INR, PTT INR 0.97 (0.82-1.09) 11/08/17 16:18 Problem List - Problems (1) Osteomyelitis Assessment/Plan: R big toe iv abx wound care id consult dvt negative both legs Code(s): M86.9 - OSTEOMYELITIS, UNSPECIFIED Qualifiers: Osteomyelitis type: unspecified type Osteomyelitis location: foot Laterality: right Qualified Code(s): M86.9 - Osteomyelitis, unspecified (2) Asthma Assessment/Plan: stable Code(s): J45.909 - UNSPECIFIED ASTHMA, UNCOMPLICATED (3) HIV disease Assessment/Plan: on meds Code(s): B20 - HUMAN IMMUNODEFICIENCY VIRUS [HIV] DISEASE (4) Hypertension Assessment/Plan: on meds stable Code(s): I10 - ESSENTIAL (PRIMARY) HYPERTENSION
[2017-11-16] MEDS: FUROSEMIDE 40 MG TABLET (FP) PO SCH ×2 (06:05→14:48)
[2017-11-16] MEDS: metroNIDAZOLE 250 MG TABLET PO SCH ×3 (06:05→21:45)
[2017-11-16 07:25] LABS: BASO % 0.8 % (0-2.0); EOS % 7.3 % (0-4.5); HEMATOCRIT 32.6 % (35.4-49); HEMOGLOBIN 10.9 GM/dL (11.7-16.9); LYMPH % 31.1 % (8-40); MCH 32.6 pg (25.7-33.7); MCHC 33.6 g/dl (32.0-35.9); MEAN CELL VOLUME 96.9 fl (80-96); MEAN PLT VOLUME 10.1 fl (7.5-11.1); MONO % 12.8 % (3.8-10.2); PLATELET COUNT 152 K/MM3 (134-434); RBC 3.36 M/mm3 (4.00-5.60); RDW 15.4 % (11.9-15.9); WHITE BLOOD COUNT 3.5 K/mm3 (4.0-10.0)
[2017-11-16 07:36] LABS: ANION GAP 5 (8-16); BLOOD UREA NITROGEN 52 mg/dL (7-18); CALCIUM 8.8 mg/dL (8.5-10.1); CHLORIDE 104 mmol/L (98-107); CO2 28 mmol/L (21-32); GLUCOSE,RANDOM 92 mg/dL (74-106); POTASSIUM 4.3 mmol/L (3.5-5.1); SODIUM 137 mmol/L (136-145)
[2017-11-16 07:42] LABS: ALK PHOS 55 U/L (45-117); BILIRUBIN,TOTAL 0.5 mg/dL (0.2-1.0); CREATININE 3.8 mg/dL (0.7-1.3); SGOT/AST 133 U/L (15-37); SGPT/ALT 67 U/L (12-78); TOT PROT 7.3 g/dl (6.4-8.2)
[2017-11-16] MEDS ORDERED: METHADONE HCL 40 MG DISPERSABLE TABLET PO ONE (09:15)
[2017-11-16] MEDS ORDERED: PT OWN MED DRAWER 7, Y5N ONE (10:34)
[2017-11-16] MEDS: lamiVUDine 150 MG TABLET PO SCH (10:55)
[2017-11-16] MEDS: ATENOLOL 25 MG TABLET (FP) PO SCH (10:55)
[2017-11-16] MEDS: NIFEdipine E.R. 30 MG TABLET (FP) PO SCH (10:55)
[2017-11-16] MEDS: MULTIVITAMINS (DAILY MVI) TABLET (FP) PO SCH (10:55)
[2017-11-16] MEDS: CEFEPIME HCL/D5W 1 GM/50 ML BAG IVPB SCH (10:55)
[2017-11-16] MEDS: ABACAVIR SULFATE 300 MG TABLET PO SCH (10:56)
[2017-11-16] MEDS: PICC LINE 8 ML FLUSH PROTOCOL IVPUSH PRN (11:32)
--- NOTE | 2017-11-16 16:34 | PN ---
Progress Note, Physician History of Present Illness: feeling good - Current Medication List Current Medications: Active Medications Abacavir Sulfate (Ziagen -) 600 mg PO DAILY [facility] Last Admin: 11/16/17 10:56 Dose: 600 mg Albuterol Sulfate (Ventolin Hfa Inhaler -) 1 puff IH Q6H PRN PRN Reason: SHORT OF BREATH/WHEEZING Atenolol (Tenormin -) 25 mg PO DAILY [facility] Last Admin: 11/16/17 10:55 Dose: 25 mg Darunavir (Prezista -) 800 mg PO HS [facility] Last Admin: 11/15/17 21:29 Dose: 800 mg Furosemide (Lasix -) 40 mg PO BIDLASIX [facility] Last Admin: 11/16/17 14:48 Dose: 40 mg IV Flush (Picc Line Flush) 8 ml IVPUSH PRN PRN PRN Reason: Protocol Last Admin: 11/16/17 11:32 Dose: 8 ml Cefepime HCl (Maxipime 1 Gm Premix Ivpb) 1 gm in 50 mls @ 100 mls/hr IVPB DAILY [facility]; Protocol Last Admin: 11/16/17 10:55 Dose: 100 mls/hr Lamivudine (Epivir -) 300 mg PO DAILY [facility] Last Admin: 11/16/17 10:55 Dose: 300 mg Metronidazole (Flagyl -) 500 mg PO TID [facility] Last Admin: 11/16/17 14:48 Dose: 500 mg Multivitamins/Minerals/Vitamin C (Tab-A-Vit -) 1 tab PO DAILY [facility] Last Admin: 11/16/17 10:55 Dose: 1 tab Nifedipine (Procardia Xl -) 30 mg PO DAILY [facility] Last Admin: 11/16/17 10:55 Dose: 30 mg - Objective Vital Signs: Vital Signs Temperature 98.9 F 11/16/17 14:00 Pulse Rate 64 11/16/17 14:00 Respiratory Rate 17 11/16/17 14:00 Blood Pressure 122/67 11/16/17 14:00 O2 Sat by Pulse Oximetry (%) 96 11/15/17 21:00 Constitutional: Yes: No Distress HENT: Yes: Atraumatic Neck: Yes: Supple Cardiovascular: Yes: Regular Rate and Rhythm Respiratory: Yes: CTA Bilaterally Gastrointestinal: Yes: Normal Bowel Sounds Extremities: Yes: Other (R foot osteo) Edema: RLE: 1+ Neurological: Yes: Alert, Oriented Labs: CBC, BMP 11/16/17 06:45 11/16/17 06:45 INR, PTT INR 0.97 (0.82-1.09) 11/08/17 16:18 Problem List - Problems (1) Osteomyelitis Assessment/Plan: R big toe iv abx wound care id consult dvt negative both legs Code(s): M86.9 - OSTEOMYELITIS, UNSPECIFIED Qualifiers: Osteomyelitis type: unspecified type Osteomyelitis location: foot Laterality: right Qualified Code(s): M86.9 - Osteomyelitis, unspecified (2) Asthma Assessment/Plan: stable Code(s): J45.909 - UNSPECIFIED ASTHMA, UNCOMPLICATED (3) HIV disease Assessment/Plan: on meds Code(s): B20 - HUMAN IMMUNODEFICIENCY VIRUS [HIV] DISEASE (4) Hypertension Code(s): I10 - ESSENTIAL (PRIMARY) HYPERTENSION Assessment/Plan awating placement
[2017-11-16] MEDS: DARUNAVIR ETHANOLATE 800 MG TAB PO SCH (21:45)
[2017-11-17] MEDS: metroNIDAZOLE 250 MG TABLET PO SCH ×3 (06:04→21:18)
[2017-11-17] MEDS: FUROSEMIDE 40 MG TABLET (FP) PO SCH ×2 (06:04→13:56)
[2017-11-17] MEDS: MULTIVITAMINS (DAILY MVI) TABLET (FP) PO SCH (10:31)
[2017-11-17] MEDS: lamiVUDine 150 MG TABLET PO SCH (10:31)
[2017-11-17] MEDS: ATENOLOL 25 MG TABLET (FP) PO SCH (10:31)
[2017-11-17] MEDS: ABACAVIR SULFATE 300 MG TABLET PO SCH (10:32)
[2017-11-17] MEDS: CEFEPIME HCL/D5W 1 GM/50 ML BAG IVPB SCH (10:33)
[2017-11-17] MEDS: METHADONE HCL 40 MG DISPERSABLE TABLET PO SCH (10:54)
[2017-11-17] MEDS: NIFEdipine E.R. 30 MG TABLET (FP) PO SCH (10:54)
[2017-11-17] MEDS: PICC LINE 8 ML FLUSH PROTOCOL IVPUSH PRN (14:00)
--- NOTE | 2017-11-17 16:58 | PN ---
Progress Note, Physician - Current Medication List Current Medications: Active Medications Abacavir Sulfate (Ziagen -) 600 mg PO DAILY [facility] Last Admin: 11/17/17 10:32 Dose: 600 mg Albuterol Sulfate (Ventolin Hfa Inhaler -) 1 puff IH Q6H PRN PRN Reason: SHORT OF BREATH/WHEEZING Atenolol (Tenormin -) 25 mg PO DAILY [facility] Last Admin: 11/17/17 10:31 Dose: 25 mg Darunavir (Prezista -) 800 mg PO HS [facility] Last Admin: 11/16/17 21:45 Dose: 800 mg Furosemide (Lasix -) 40 mg PO BIDLASIX [facility] Last Admin: 11/17/17 13:56 Dose: 40 mg IV Flush (Picc Line Flush) 8 ml IVPUSH PRN PRN PRN Reason: Protocol Last Admin: 11/16/17 11:32 Dose: 8 ml Cefepime HCl (Maxipime 1 Gm Premix Ivpb) 1 gm in 50 mls @ 100 mls/hr IVPB DAILY [facility]; Protocol Last Admin: 11/17/17 10:33 Dose: 100 mls/hr Lamivudine (Epivir -) 300 mg PO DAILY [facility] Last Admin: 11/17/17 10:31 Dose: 300 mg Methadone HCl (Dolophine -) 80 mg PO DAILY@0600 [facility] Last Admin: 11/17/17 10:54 Dose: 80 mg Metronidazole (Flagyl -) 500 mg PO TID [facility] Last Admin: 11/17/17 13:56 Dose: 500 mg Multivitamins/Minerals/Vitamin C (Tab-A-Vit -) 1 tab PO DAILY [facility] Last Admin: 11/17/17 10:31 Dose: 1 tab Nifedipine (Procardia Xl -) 30 mg PO DAILY [facility] Last Admin: 11/17/17 10:54 Dose: 30 mg - Objective Vital Signs: Vital Signs Temperature 99.0 F 11/17/17 13:24 Pulse Rate 58 L 11/17/17 13:24 Respiratory Rate 17 11/17/17 13:24 Blood Pressure 125/70 11/17/17 13:24 O2 Sat by Pulse Oximetry (%) 97 11/16/17 21:00 Constitutional: Yes: No Distress HENT: Yes: Atraumatic Neck: Yes: Supple Cardiovascular: Yes: Regular Rate and Rhythm Respiratory: Yes: CTA Bilaterally Gastrointestinal: Yes: Normal Bowel Sounds Extremities: Yes: Other (R foot osteo) Edema: RLE: 1+ (foot) Neurological: Yes: Alert, Oriented Labs: CBC, BMP 11/16/17 06:45 11/16/17 06:45 INR, PTT INR 0.97 (0.82-1.09) 11/08/17 16:18 Problem List - Problems (1) Osteomyelitis Assessment/Plan: R big toe iv abx wound care id consult dvt negative both legs Code(s): M86.9 - OSTEOMYELITIS, UNSPECIFIED Qualifiers: Osteomyelitis type: unspecified type Osteomyelitis location: foot Laterality: right Qualified Code(s): M86.9 - Osteomyelitis, unspecified (2) Asthma Assessment/Plan: stable Code(s): J45.909 - UNSPECIFIED ASTHMA, UNCOMPLICATED (3) HIV disease Assessment/Plan: on meds Code(s): B20 - HUMAN IMMUNODEFICIENCY VIRUS [HIV] DISEASE (4) Hypertension Assessment/Plan: on meds stable Code(s): I10 - ESSENTIAL (PRIMARY) HYPERTENSION
--- NOTE | 2017-11-17 16:59 | DS ---
Physical Examination Vital Signs: Vital Signs Temperature 99.0 F 11/17/17 13:24 Pulse Rate 58 L 11/17/17 13:24 Respiratory Rate 17 11/17/17 13:24 Blood Pressure 125/70 11/17/17 13:24 O2 Sat by Pulse Oximetry (%) 97 11/16/17 21:00 Labs: CBC, BMP 11/16/17 06:45 11/16/17 06:45 Discharge Summary Reason For Visit: OSTEOMYELITIS Current Active Problems Osteomyelitis (Chronic) - Instructions Diet, Activity, Other Instructions: Cefepime 1gm IVPB daily Vancomycin 1gm IVPB q48h next dose 11/13/17 Both x 37 days Maintain vanco trough approx 15 Check weekly ESR CRP + Flagyl 500mg po tid x 2weeks Referrals: Karime Griffin [facility] [Primary Care Provider] - - Home Medications Comprehensive Discharge Medication List: Ambulatory Orders Methadone HCl 80 mg PO DAILY 10/30/15 Abacavir Sulfate/Lamivudine [Epzicom Tablet] 1 tablet PO DAILY #30 tablet Albuterol Sulfate Inhaler - [Ventolin HFA Inhaler -] 1 - 2 inh PO QID #1 inhaler 09/10/17 Atenolol [Tenormin] 25 mg PO DAILY #30 tablet 09/10/17 Darunavir Ethanolate [Prezista] 800 mg PO HS #30 tablet 09/10/17 Furosemide [Lasix -] 1 tab PO BID #60 tab 09/10/17 Magnesium Chloride [Slow-Mag -] 1 tab PO DAILY #30 tablet.sa 09/10/17 Multivitamins [Multivit ([facility] Formulary)] 1 tab PO DAILY #30 tab 09/10/17 Nifedipine [Procardia Xl] 30 mg PO DAILY #30 tab.er.24 09/10/17 Ritonavir [Norvir -] 100 mg PO DAILY #30 tab 09/10/17 metroNIDAZOLE [Flagyl -] 500 mg PO TID tablet 11/13/17
[2017-11-17] MEDS ORDERED: PT OWN MED DRAWER 7, Y5N ONE (21:04)
[2017-11-17] MEDS: DARUNAVIR ETHANOLATE 800 MG TAB PO SCH (21:19)
[2017-11-18] MEDS: metroNIDAZOLE 250 MG TABLET PO SCH ×2 (05:55→15:11)
[2017-11-18] MEDS: FUROSEMIDE 40 MG TABLET (FP) PO SCH ×2 (05:55→15:12)
[2017-11-18] MEDS: METHADONE HCL 40 MG DISPERSABLE TABLET PO SCH (05:55)
[2017-11-18 09:46] VITALS: BP 107/65; PULSE 76; TEMP 97
[2017-11-18] MEDS ORDERED: PT OWN MED DRAWER 7, Y5N ONE (10:32)
[2017-11-18] MEDS: CEFEPIME HCL/D5W 1 GM/50 ML BAG IVPB SCH (10:39)
[2017-11-18] MEDS: ATENOLOL 25 MG TABLET (FP) PO SCH (10:40)
[2017-11-18] MEDS: MULTIVITAMINS (DAILY MVI) TABLET (FP) PO SCH (10:40)
[2017-11-18] MEDS: NIFEdipine E.R. 30 MG TABLET (FP) PO SCH (10:40)
[2017-11-18] MEDS: lamiVUDine 150 MG TABLET PO SCH (10:40)
[2017-11-18] MEDS: ABACAVIR SULFATE 300 MG TABLET PO SCH (10:41)
[2017-11-18] MEDS: PICC LINE 8 ML FLUSH PROTOCOL IVPUSH PRN (10:41)
--- NOTE | 2017-11-18 16:26 | DS ---
Physical Examination Vital Signs: Vital Signs Temperature 97 F L 11/18/17 09:00 Pulse Rate 76 11/18/17 09:00 Respiratory Rate 18 11/18/17 09:00 Blood Pressure 107/65 11/18/17 09:00 O2 Sat by Pulse Oximetry (%) 97 11/18/17 09:00 Constitutional: Yes: No Distress HENT: Yes: Atraumatic Neck: Yes: Supple Cardiovascular: Yes: Regular Rate and Rhythm Respiratory: Yes: CTA Bilaterally Gastrointestinal: Yes: Normal Bowel Sounds Labs: CBC, BMP 11/16/17 06:45 11/16/17 06:45 Discharge Summary Reason For Visit: OSTEOMYELITIS Current Active Problems Osteomyelitis (Chronic) - Instructions Diet, Activity, Other Instructions: Cefepime 1gm IVPB daily Vancomycin 1gm IVPB q48h next dose 11/13/17 Both x 37 days Maintain vanco trough approx 15 Check weekly ESR CRP + Flagyl 500mg po tid x 2weeks Referrals: Karime Griffin, [facility] [Primary Care Provider] - - Home Medications Comprehensive Discharge Medication List: Ambulatory Orders Methadone HCl 80 mg PO DAILY 10/30/15 Abacavir Sulfate/Lamivudine [Epzicom Tablet] 1 tablet PO DAILY #30 tablet Albuterol Sulfate Inhaler - [Ventolin HFA Inhaler -] 1 - 2 inh PO QID #1 inhaler 09/10/17 Atenolol [Tenormin] 25 mg PO DAILY #30 tablet 09/10/17 Darunavir Ethanolate [Prezista] 800 mg PO HS #30 tablet 09/10/17 Furosemide [Lasix -] 1 tab PO BID #60 tab 09/10/17 Magnesium Chloride [Slow-Mag -] 1 tab PO DAILY #30 tablet.sa 09/10/17 Multivitamins [Multivit ([facility] Formulary)] 1 tab PO DAILY #30 tab 09/10/17 Nifedipine [Procardia Xl] 30 mg PO DAILY #30 tab.er.24 09/10/17 Ritonavir [Norvir -] 100 mg PO DAILY #30 tab 09/10/17 metroNIDAZOLE [Flagyl -] 500 mg PO TID tablet 11/13/17
== END 2017-11-18 17:40 | DRG 344 ==
LOC: JER 15:26 → JERBED 17:31 → J6S 22:50
PROVIDERS: ADMIT Internal Medicine; ATTEND Internal Medicine
PROC: 0JH63XZ Insertion of Tunneled Vascular Access Device into Chest Subcutaneous Tissue and Fascia, Percutaneous Approach (ICD-10-PCS; principal; 2017-11-12)
PROC: 05H533Z Insertion of Infusion Device into Right Subclavian Vein, Percutaneous Approach (ICD-10-PCS; 2017-11-12)
DX: M86.9 Osteomyelitis, unspecified (principal); L97.519 Non-pressure chronic ulcer of other part of right foot with unspecified severity; Z21 Asymptomatic human immunodeficiency virus [HIV] infection status; I10 Essential (primary) hypertension; F17.210 Nicotine dependence, cigarettes, uncomplicated; E78.00 Pure hypercholesterolemia, unspecified; J45.909 Unspecified asthma, uncomplicated; F32.9 Major depressive disorder, single episode, unspecified; N28.9 Disorder of kidney and ureter, unspecified; Z88.0 Allergy status to penicillin; Z79.891 Long term (current) use of opiate analgesic
CPT/HCPCS: 36415; 36558; 71046-TC-FY; 77001-TC-FY; 80053; 85025; 85610; 85651; 86140; 86850; 86900; 86901; 87040; 87070; 87077; 87186; 87205; 93005; 93010; 93970-TC; 99285-25; C1751; G0480; J1644

== ENCOUNTER 2017-11-25 13:58 | Inpatient (IN) | payer OTHER ==
--- NOTE | 2017-11-25 14:17 | PDOC ---
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 Pt was recently admitted to the hospital for great toe osteomyeliits Plan was for abx Pt was ? discharged with right subclavian TLC [place] a [place] [facility] [place] on 11/18 He returns to the Er today stating that he was unable to gain admission to the [place] [facility] [place] because he could not have a car No fevers or chills Pt states he leg/foot are improving - Physicial Exam PE: 11/25/17 16:32 Pt is awake and alert RRR CTA b/l No abd tenderness Right lower extremity swelling Great toe ulcerated wound, no drainage noted No surrounding erythema - Medical Decision Making 11/25/17 16:34 Laboratory Tests 11/16/17 11/25/17 06:45 15:29 WBC 3.5 L 4.6 Hgb 10.9 L 10.8 L Hct 32.6 L 32.3 L Plt Count 152 175 CMP pending Will re initiate abx Will plan to admit as it is unclear to me why this patient was neither in the hospital nor the [place] [facility] for the past week Case reviewed with Dr Poole covering Dr Matson Pt will need to be admitted to the Hospitalist Clinical Impression: osteomyelitis, repeat presentation 11/25/17 18:08
[2017-11-25 15:42] LABS: BASO % 0.4 % (0-2.0); EOS % 3.3 % (0-4.5); HEMATOCRIT 32.3 % (35.4-49); HEMOGLOBIN 10.8 GM/dL (11.7-16.9); LYMPH % 15.5 % (8-40); MCH 31.9 pg (25.7-33.7); MCHC 33.5 g/dl (32.0-35.9); MEAN CELL VOLUME 95.4 fl (80-96); MEAN PLT VOLUME 10.2 fl (7.5-11.1); MONO % 11.9 % (3.8-10.2); NEUT % 68.9 % (42.8-82.8); PLATELET COUNT 175 K/MM3 (134-434); RBC 3.39 M/mm3 (4.00-5.60); RDW 15.2 % (11.9-15.9); WHITE BLOOD COUNT 4.6 K/mm3 (4.0-10.0)
--- NOTE | 2017-11-25 15:49 | PDOC ---
History of Present Illness - General Chief Complaint: Lightheaded Stated Complaint: DIZZINESS,WEAKNESS Time Seen by Provider: 11/25/17 14:13 - History of Present Illness Initial Comments: 11/25/17 21:24 Patient is a 67 year old male with a PMH of R great toe osteomyelitis, HIV ( follows @ [facility]), HTN, HLD and IVDA (on Methadone) who presents to our ED this afternoon seeking evaluation of his R toe. Patient states he was discharged from our facility last week to a [facility] in the [place] where he was supposed to continue receiving IV Abx. Patient states he was unable to stay at the facility because they did not provide parking and he did not want to street park because he could not afford it. Patient notes his IV access is intact and states he last received Abx approximately 6 days previous. Denies any fevers/ chills or toe pain. Allergy: ASA Surgical: denies Social: former IVDU on Methadone As per EMR patient was admitted to our facility from 11/08-11/18 for osteomyelitis of R hallux. Patient discharged to SNF on Cefepime (1 gm QD) and Vancomycin (1 gm q48H). Past History - Past Medical History Allergies/Adverse Reactions: Allergies Allergy/AdvReac Type Severity Reaction Status Date / Time aspirin Allergy Unknown Rash Verified 11/25/17 14:04 tomatoes Allergy Mild Uncoded 11/25/17 14:04 Home Medications: Ambulatory Orders Methadone HCl 80 mg PO DAILY 10/30/15 Abacavir Sulfate/Lamivudine [Epzicom Tablet] 1 tablet PO DAILY #30 tablet Albuterol Sulfate Inhaler - [Ventolin HFA Inhaler -] 1 - 2 inh PO QID #1 inhaler 09/10/17 Atenolol [Tenormin] 25 mg PO DAILY #30 tablet 09/10/17 Darunavir Ethanolate [Prezista] 800 mg PO HS #30 tablet 09/10/17 Furosemide [Lasix -] 1 tab PO BID #60 tab 09/10/17 Magnesium Chloride [Slow-Mag -] 1 tab PO DAILY #30 tablet.sa 09/10/17 Multivitamins [Multivit ([facility] Formulary)] 1 tab PO DAILY #30 tab 09/10/17 Nifedipine [Procardia Xl] 30 mg PO DAILY #30 tab.er.24 09/10/17 Ritonavir [Norvir -] 100 mg PO DAILY #30 tab 09/10/17 Anemia: No Asthma: Yes Cancer: No Cardiac Disorders: No CVA: No COPD: No CHF: No DVT: No Dementia: No Diabetes: No GI Disorders: No Disorders: No HTN: Yes Hypercholesterolemia: Yes Kidney Stones: No Liver Disease: No Seizures: No Thyroid Disease: No - Surgical History Abdominal Surgery: No Appendectomy: No Cardiac Surgery: No Cholecystectomy: No Lung Surgery: No Neurologic Surgery: No Orthopedic Surgery: Yes (Nasal fx repair ) - Reproductive History Testicular Surgery: No - Immunization History Immunization Up to Date: No - Suicide/Smoking/Psychosocial Hx Smoking Status: Yes Smoking History: Current every day smoker Have you smoked in the past 12 months: Yes Number of Cigarettes Smoked Daily: 10 Cigars Per Day: 0 Information on smoking cessation initiated: Yes 'Breaking Loose' booklet given: 11/08/17 Hx Alcohol Use: No Drug/Substance Use Hx: Yes Substance Use Type: Heroin Hx Substance Use Treatment: Yes Review of Systems - Review of Systems Constitutional: No: Chills, Fever Respiratory: No: Cough, Shortness of Breath Cardiac (ROS): No: Chest Pain, Edema, Lightheadedness, Palpitations ABD/GI: No: Constipated, Diarrhea, Nausea, Vomiting : No: Burning, Dysuria *Physical Exam - Vital Signs Last Vital Signs Temp Pulse Resp BP Pulse Ox 98 F 67 16 104/49 99 11/25/17 14:00 11/25/17 14:00 11/25/17 14:00 11/25/17 14:00 11/25/17 14:00 - Physical Exam General Appearance: Yes: Nourished, Appropriately Dressed Neck: positive: Trachea midline, Supple Respiratory/Chest: positive: Lungs Clear Cardiovascular: positive: S1, S2. negative: Edema Vascular Pulses: Dorsalis-Pedis (R): 2+, Doralis-Pedis (L): 2+ Gastrointestinal/Abdominal: positive: Normal Bowel Sounds, Soft Extremity: positive: Normal Capillary Refill, Other (R hallux Stage 4 ulcer w good granulation tissue, no erythema/edema/purulent discharge) ED Treatment Course - LABORATORY CBC & Chemistry Diagram: 11/25/17 15:29 11/25/17 15:30 Medical Decision Making - Medical Decision Making 11/25/17 21:34 67 year old male presents with R hallux ulcer - recent h/o osteomyelitis with incomplete antibiotic treatment. Will obtain labs, wound culture, XR to evaluate for osteomyelitis. CBC shows no leukocytosis. XR negative for changes suggestive of osteomyelitis including bony erosions or subcutaneous air. CMP significant for Cr 6.6 ( previous Cr 3.8 in 10/2017). Will admit for further evaluation. Patient admitted to inpatient hospitalist service for further evaluation. *DC/Admit/Observation/Transfer Diagnosis at time of Disposition: Elevated serum creatinine - Discharge Dispostion Condition at time of disposition: Fair Decision to Admit order: Yes - Referrals - Patient Instructions - Post Discharge Activity
[2017-11-25 16:04] LABS: ALBUMIN 3.1 g/dl (3.4-5.0); ANION GAP 11 (8-16); BILIRUBIN,TOTAL 0.2 mg/dL (0.2-1.0); BLOOD UREA NITROGEN 86 mg/dL (7-18); CALCIUM 8.6 mg/dL (8.5-10.1); CHLORIDE 98 mmol/L (98-107); CO2 23 mmol/L (21-32); CREATININE 6.6 mg/dL (0.7-1.3); GLUCOSE,RANDOM 113 mg/dL (74-106); POTASSIUM 5.2 mmol/L (3.5-5.1); SGOT/AST 124 U/L (15-37); SGPT/ALT 53 U/L (12-78); SODIUM 132 mmol/L (136-145); TOT PROT 7.9 g/dl (6.4-8.2)
[2017-11-25 16:05] LABS: ALK PHOS 51 U/L (45-117)
[2017-11-25 17:35] LABS: ERYTHROCYTE SEDIMENTATION RATE 88 mm/hr (0-20)
--- NOTE | 2017-11-25 20:07 | HP ---
CHIEF COMPLAINT: R toe infection PCP: Dr. 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 Pt was recently admitted to the hospital for R great toe osteomyelitis. Plan was for abx Pt was discharged to the [facility] on cefepime and vancomycin with right subclavian TLC on 11/18. He returns to the ER today stating that he was unable to gain admission to the [facility] because he had a car. Denies any fevers or chills, SOB, CP, dysuria , abd pain, or sick contacts . Pt states his leg/foot are improving and that the swelling has decreased and that there is no pus draining or erythema ER course was notable for: (1) (2) (3) Recent Travel: none PAST MEDICAL HISTORY: ID Dr. Portillo Renal Dr. Pena for CKD PAST SURGICAL HISTORY: Social History: Smokinppd/50yrs Alcohol:none Drugs: heroin, not currently using. on methadone Family History: Allergies aspirin Allergy (Unknown, Verified 11/25/17 14:04) Rash tomatoes Allergy (Mild, Uncoded 11/25/17 14:04) "swelling" HOME MEDICATIONS: Home Medications Medication Instructions Recorded Methadone HCl 80 mg PO DAILY 10/30/15 Abacavir Sulfate/Lamivudine 1 tablet PO DAILY #30 tablet 09/10/17 [Epzicom Tablet] Albuterol Sulfate Inhaler - 1 - 2 inh PO QID #1 inhaler 09/10/17 [Ventolin HFA Inhaler -] Atenolol [Tenormin] 25 mg PO DAILY #30 tablet 09/10/17 Darunavir Ethanolate [Prezista] 800 mg PO HS #30 tablet 09/10/17 Furosemide [Lasix -] 1 tab PO BID #60 tab 09/10/17 Magnesium Chloride [Slow-Mag -] 1 tab PO DAILY #30 tablet.sa 09/10/17 Multivitamins [Multivit ([facility] 1 tab PO DAILY #30 tab 09/10/17 Formulary)] Nifedipine [Procardia Xl] 30 mg PO DAILY #30 tab.er.24 09/10/17 Ritonavir [Norvir -] 100 mg PO DAILY #30 tab 09/10/17 metroNIDAZOLE [Flagyl -] 500 mg PO TID tablet 11/13/17 REVIEW OF SYSTEMS CONSTITUTIONAL: Absent: fever, chills, diaphoresis, generalized weakness, malaise, loss of appetite, weight change HEENT: Absent: rhinorrhea, nasal congestion, throat pain, throat swelling, difficulty swallowing, mouth swelling, ear pain, eye pain, visual changes CARDIOVASCULAR: Absent: chest pain, syncope, palpitations, irregular heart rate, lightheadedness , peripheral edema RESPIRATORY: Absent: cough, shortness of breath, dyspnea with exertion, orthopnea, wheezing, stridor, hemoptysis GASTROINTESTINAL: Absent: abdominal pain, abdominal distension, nausea, vomiting, diarrhea, constipation, melena, hematochezia GENITOURINARY: Absent: dysuria, frequency, urgency, hesitancy, hematuria, flank pain MUSCULOSKELETAL: Absent: myalgia, arthralgia, joint swelling, back pain, neck pain SKIN: +toe infection/ulcer Absent: rash, itching, pallor HEMATOLOGIC/IMMUNOLOGIC: Absent: easy bleeding, easy bruising, lymphadenopathy, frequent infections ENDOCRINE: Absent: unexplained weight gain, unexplained weight loss, heat intolerance, cold intolerance NEUROLOGIC: Absent: headache, focal weakness or paresthesias, dizziness, unsteady gait, seizure, mental status changes, bladder or bowel incontinence PHYSICAL EXAMINATION Vital Signs - 24 hr 11/25/17 11/25/17 11/25/17 14:00 14:35 19:47 Temperature 98 F Pulse Rate 67 Pulse Rate [ 64 Right Brachial] Respiratory 16 16 Rate Blood Pressure 104/49 Blood Pressure 100/61 [Right Arm] O2 Sat by Pulse 99 99 97 Oximetry (%) GENERAL: Awake, alert, and fully oriented, in no acute distress. HEAD: NCAT EYES: PERRLA extraocular movements intact, sclera anicteric, conjunctiva clear. No lid lag. EARS, NOSE, THROAT: oropharynx clear without exudates. MMM NECK: Normal range of motion, supple without lymphadenopathy, JVD, or masses. LUNGS: CTAB No wheezes or crackles. No accessory muscle use. HEART: RRR, normal S1 and S2. S2 splitting without murmur, rub ABDOMEN: Soft, NTND, normoactive bowel sounds, no guarding, no rebound, no masses. No hepatomegaly or splenomegaly. MUSCULOSKELETAL: Normal range of motion at all joints. No bony deformities or tenderness. No CVA tenderness. UPPER EXTREMITIES: 2+ pulses, warm, well-perfused. No cyanosis. No clubbing. No peripheral edema. LOWER EXTREMITIES: 2+ pulses, warm, well-perfused. No calf tenderness. LE edema b/l. Right big toe Stage 4 ulcer - no erythema/edema/purulent discharge NEUROLOGICAL: Cranial nerves II-XII intact. Normal speech. PSYCHIATRIC: Cooperative. Good eye contact. Appropriate mood and affect. SKIN: Warm, dry, normal turgor, no rashes Laboratory Results - last 24 hr 11/25/17 11/25/17 15:29 15:30 WBC 4.6 RBC 3.39 L Hgb 10.8 L Hct 32.3 L MCV 95.4 MCH 31.9 MCHC 33.5 RDW 15.2 Plt Count 175 MPV 10.2 Absolute Neuts (auto) 3.1 Neutrophils % 68.9 D Lymphocytes % 15.5 D Monocytes % 11.9 H Eosinophils % 3.3 Basophils % 0.4 Nucleated RBC % 0 ESR 88 H Sodium 132 L Potassium 5.2 H D Chloride 98 Carbon Dioxide 23 Anion Gap 11 BUN 86 H D Creatinine 6.6 H Creat Clearance w eGFR 8.50 Random Glucose 113 H D Calcium 8.6 Total Bilirubin 0.2 AST 124 H ALT 53 D Alkaline Phosphatase 51 Total Protein 7.9 Albumin 3.1 L ASSESSMENT/PLAN: 67 y/o M w/ PMH of IVDA (heroin, 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 #Right big toe osteomyelitis - Was discharged to the [facility] on cefepime and vancomycin (q 48 hours). -c/w cefepime and give zyvox instead for vancomycin in view of worsening renal function. -Reconsult ID. -f/u wound cultures #CKD - Has multiple risk factors including DM, HIV disease, HAART, etc. -Renal consult -avoid nephrotoxic agents such as NSAIDS, vancomycin, etc... #hyperkalemia - K+ was 5.2 2/2 CKD -kayaxalate 30g BID -EKG ordered #HIV -Consult ID -c/w home dose HAART for now but should review his HAART and substitute those that may be affecting his kidney function. #HTN -c/w atenolol home dose -held nifedipine in setting of low BP #Anemia - 2/2 HIV and CKD with potential other causes unconfirmed at this time -will require anemia w/u to help further characterize the anemia and its related causes -serial stool guaiacs, reticulocyte count and iron studies #Tobacco -encourage smoking cessation -nicotine patch #IVDA -c/w methadone home dose #FEN -no IV fluids at this time -replete electrolytes as needed -low sodium diet for HTN #DVT ppx -SQH 5000U tid #Dispo -admit to inpatient -full code Visit type - Emergency Visit Emergency Visit: Yes ED Registration Date: 11/25/17 Care time: The patient presented to the Emergency Department on the above date and was hospitalized for further evaluation of their emergent condition. - New Patient This patient is new to me today: Yes Date on this admission: 11/26/17 - Critical Care Critical Care patient: No Hospitalist Screening - Colonoscopy Questionnaire Colonoscopy Questionnaire: Colonoscopy Questionnaire - Patient: 50 - 75 years old and never had a screening colonoscopy: Unknown History of colon or rectal polyps, or CA: Unknown History of IBD, Crohn's disease or UC: Unknown History of abdominal radiation therapy as a child: Unknown - Relative: 1 with colon or rectal CA, or polyps at age 60 or younger: Unknown Colon or rectal CA diagnosed at age 45 or younger: Unknown Multiple relatives with colon or rectal CA: Unknown - Outcome: Screening Result: Negative Screen
--- NOTE | 2017-11-25 20:37 | PN ---
Teaching Attending Note Name of Resident: González Chau ATTENDING PHYSICIAN STATEMENT I saw and evaluated the patient. I reviewed the resident's note and discussed the case with the resident. I agree with the resident's findings and plan as documented. 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 He was recently admitted to the hospital for right great toe osteomyeliits and was supposedly discharged with right subclavian TLC to a [facility] on . He returns to the ER today stating that he was refused admission to the [facility] because he had his car with him. OBJECTIVE: Alert and in no acute distress Vital Signs Period Temp Pulse Resp BP Sys/Pearl Pulse Ox Last 24 Hr 98 F 64-67 16-16 100-104/49-61 97-99 HEENT: No Jaundice, eye redness or discharge, PERRLA, EOMI. Normocephalic, atraumatic. External ears are normal and hearing is impaired; uses hearing aid. No nasal discharge. Neck: Supple, nontender. No palpable adenopathy or thyromegaly. No JVD Chest: Good effort. Right chest catheter - subclavian TLC. Clear to auscultation and percussion. Heart: Regular. No S3, rub or murmur Abdomen: Not distended, soft, nontender and no HSM. No rebound or guarding. Normoactive bowel sounds. Ext: Peripheral pulses intact. Leg edema. Right big toe Stage 4 ulcer - no erythema/edema/purulent discharge) Skin: Warm and dry. No petechiae, rash or ecchymosis. Neuro: Alert. Oriented x3. CN 2-12 grossly intact. Sensation grossly intact in all four extremities and DTR are symmetric. Home Medications Medication Instructions Recorded Methadone HCl 80 mg PO DAILY 10/30/15 Abacavir Sulfate/Lamivudine 1 tablet PO DAILY #30 tablet 09/10/17 [Epzicom Tablet] Albuterol Sulfate Inhaler - 1 - 2 inh PO QID #1 inhaler 09/10/17 [Ventolin HFA Inhaler -] Atenolol [Tenormin] 25 mg PO DAILY #30 tablet 09/10/17 Darunavir Ethanolate [Prezista] 800 mg PO HS #30 tablet 09/10/17 Furosemide [Lasix -] 1 tab PO BID #60 tab 09/10/17 Magnesium Chloride [Slow-Mag -] 1 tab PO DAILY #30 tablet.sa 09/10/17 Multivitamins [Multivit ([facility] 1 tab PO DAILY #30 tab 09/10/17 Formulary)] Nifedipine [Procardia Xl] 30 mg PO DAILY #30 tab.er.24 09/10/17 Ritonavir [Norvir -] 100 mg PO DAILY #30 tab 09/10/17 metroNIDAZOLE [Flagyl -] 500 mg PO TID tablet 11/13/17 Abnormal Lab Results 11/25/17 11/25/17 15:29 15:30 RBC 3.39 L Hgb 10.8 L Hct 32.3 L Monocytes % 11.9 H ESR 88 H Sodium 132 L Potassium 5.2 H D BUN 86 H D Creatinine 6.6 H Random Glucose 113 H D AST 124 H Albumin 3.1 L ASSESSMENT AND PLAN: 1. Right big toe osteomyelitis - Was discharged to the NH on cefepime and vancomycin (q 48 hours). Will continue cefepime and give zyvox instead fo vancomycin in view of worsening renal function. Reconsult ID. 2. CKD - Has multiple risk factors including DM, HIV disease, HAART, etc. Will consult nephrology and avoid nephrotoxic agents such as NSAIDS, vancomycin, aminoglycosides, contrast dyes and certain Alternative medicine products. 3. HIV Disease - Consult ID and review his HAART and substiitute those that may be affecting his kidney function. 4. Hypoalbuminemia - Possibly due to combined effects of malnutrition and inflammation associated with comorbid chronic conditions. Will ensure adequate dietary protein intake and also consult powder blender. 5. DM - Implement sliding scale insulin regimen. Provide comprehensive diabetes care with patient teaching and counseling about the importance of euglycemia, eye care and foot care. 6. Tobacco Use We will provide patient all the necessary assistance to facilitate smoking cessation and prescribe Nicotine patch. 7. Anemia - Likely multifactorial (HIV, CKD...). Do basic anemia work up including serial stool guaiacs, reticulocyte count and iron studies. Would benefit from Procrit therapy once iron replete. 8. DVT prophylaxis - Heparin 5000u sq tid. 9. Advance directives - Full code
[2017-11-25] MEDS ORDERED: ALBUTEROL SO4 0.083% IH SOL 2.5 MG/3 ML VIAL.NEB. NEB PRN (23:37)
[2017-11-26] MEDS ORDERED: SODIUM POLYSTYRENE SULFONATE 15 GM/60 ML BOTTLE PO SCH ×2 (00:15→04:45)
[2017-11-26] MEDS ORDERED: CEFEPIME 2 GM in DEXTROSE 5%-WATER 100 ML IVPB ONE (03:23)
[2017-11-26] MEDS ORDERED: LINEZOLID 600 MG PREMIX BAG 600 MG/300 ML BAG IV ONE (04:00)
[2017-11-26] MEDS: HEPARIN NA (PORCINE) 5,000 UNITS/ML 1ML VIAL SQ SCH ×3 (05:30→22:37)
[2017-11-26] MEDS ORDERED: METHADONE HCL 40 MG DISPERSABLE TABLET PO SCH ×3 (06:00→08:56)
[2017-11-26] MEDS ORDERED: FUROSEMIDE 40 MG TABLET (FP) PO SCH ×2 (06:00→10:00)
[2017-11-26 09:18] LABS: EOS % 8.3 % (0-4.5); HEMOGLOBIN 11.4 GM/dL (11.7-16.9); LYMPH % 25.7 % (8-40); MCH 32.2 pg (25.7-33.7); MCHC 33.6 g/dl (32.0-35.9); MEAN CELL VOLUME 95.8 fl (80-96); MEAN PLT VOLUME 10.1 fl (7.5-11.1); MONO % 12.6 % (3.8-10.2); NEUT % 52.4 % (42.8-82.8); PLATELET COUNT 168 K/MM3 (134-434); RBC 3.55 M/mm3 (4.00-5.60)
[2017-11-26] MEDS ORDERED: METHADONE HCL 10 MG TABLET ONE (09:21)
[2017-11-26] MEDS ORDERED: METHADONE HCL 40 MG DISPERSABLE TABLET ONE (09:21)
[2017-11-26] MEDS ORDERED: PT OWN MED DRAWER 7, Y5N ONE (09:22)
--- NOTE | 2017-11-26 09:22 | EKG ---
Test Reason : Blood Pressure : / mmHG Vent. Rate : 056 BPM Atrial Rate : 056 BPM P-R Int : 192 ms QRS Dur : 170 ms QT Int : 510 ms P-R-T Axes : 054 074 052 degrees QTc Int : 492 ms SINUS BRADYCARDIA RIGHT BUNDLE BRANCH BLOCK ABNORMAL ECG WHEN COMPARED WITH ECG OF 08-NOV-2017 16:52, NO SIGNIFICANT CHANGE WAS FOUND Confirmed by JUSTIN KELLY MD ([id number]) on 11/26/2017 9:22:25 AM Referred By: Confirmed By:JUSTIN KELLY MD
[2017-11-26 09:51] LABS: ALBUMIN 3.1 g/dl (3.4-5.0); ALK PHOS 49 U/L (45-117); ANION GAP 11 (8-16); BILIRUBIN,TOTAL 0.2 mg/dL (0.2-1.0); BLOOD UREA NITROGEN 89 mg/dL (7-18); CALCIUM 8.5 mg/dL (8.5-10.1); CHLORIDE 97 mmol/L (98-107); CO2 26 mmol/L (21-32); CREATININE 5.7 mg/dL (0.7-1.3); GLUCOSE,RANDOM 110 mg/dL (74-106); MAGNESIUM 2.5 mg/dL (1.8-2.4); PHOSPHOROUS 4.8 mg/dL (2.5-4.9); POTASSIUM 4.3 mmol/L (3.5-5.1); SGOT/AST 120 U/L (15-37); SGPT/ALT 51 U/L (12-78); SODIUM 134 mmol/L (136-145); TOT PROT 7.9 g/dl (6.4-8.2)
[2017-11-26] MEDS ORDERED: lamiVUDine 150 MG TABLET PO SCH (10:00)
[2017-11-26] MEDS ORDERED: MULTIVITAMINS (DAILY MVI) TABLET (FP) PO SCH (10:00)
[2017-11-26] MEDS ORDERED: PATIENT'S OWN MEDICATION (NON-FORMULARY) (Abacavir Sulfate/Lamivudine [Epzicom Tablet] 1 T PO SCH (10:00)
[2017-11-26] MEDS ORDERED: ATENOLOL 25 MG TABLET (FP) PO SCH (10:00)
[2017-11-26] MEDS ORDERED: DARUNAVIR ETHANOLATE 800 MG TAB PO SCH (10:00)
[2017-11-26] MEDS ORDERED: RITONAVIR 100 MG TABLET PO SCH (10:00)
--- NOTE | 2017-11-26 10:48 | PN ---
Progress Note (short form) - Note Progress Note: will see the patient
[2017-11-26] MEDS: ABACAVIR SULFATE 300 MG TABLET PO SCH (10:55)
[2017-11-26] MEDS: METHADONE 40 MG, METHADONE 30 MG PO SCH (10:55)
[2017-11-26] MEDS: MULTIVITAMINS (DAILY MVI) TABLET (FP) PO SCH (10:55)
[2017-11-26] MEDS: ATENOLOL 25 MG TABLET (FP) PO SCH ×2 (10:56→11:33)
[2017-11-26] MEDS: RITONAVIR 100 MG TABLET PO SCH (10:57)
[2017-11-26] MEDS: NICOTINE 7 MG/24 HOURS TOPICAL PATCH TD SCH (10:59)
[2017-11-26] MEDS: NIFEdipine E.R. 30 MG TABLET (FP) PO SCH (11:05)
[2017-11-26] MEDS ORDERED: CEFEPIME HCL/D5W 1 GM/50 ML BAG IVPB SCH (11:30)
[2017-11-26] MEDS ORDERED: VANCOMYCIN 1 GM PREMIX - 1 GM/200 ML BAG IVPB ONE (11:30)
[2017-11-26] MEDS ORDERED: VANCOMYCIN 1,000 MG in DEXTROSE 5%-WATER - 250 ML IVPB SCH (11:30)
[2017-11-26] MEDS ORDERED: SODIUM CHLORIDE 1,000 ML IV STA (12:48)
--- NOTE | 2017-11-26 13:23 | PN ---
Progress Note (short form) - Note Progress Note: ID Consult dictated Infected great toe ulcer/ chronic osteomyelitis CKD HIV + stable Resume vancomycin/ cefepime/ flagyl, adjusted for CKD Surgical evaluation ? debridement ART
[2017-11-26] MEDS ORDERED: CEFEPIME 1 GM in DEXTROSE 5%-WATER 100 ML IVPB SCH (13:25)
--- NOTE | 2017-11-26 14:28 | CONS ---
DATE OF CONSULTATION: DATE OF DICTATION: 11/26/2017 HISTORY OF PRESENT ILLNESS: The patient is a 67-year-old male history of HIV positive, asymptomatic, evaluated for osteomyelitis of the great toe. The patient was recently hospitalized at [facility] from November 08 through November 18. At that time, he was admitted for an infected plantar ulcer of the right great toe. Imaging revealed chronic osteomyelitis. He received a course of IV antibiotic therapy and was subsequently discharged to a [facility] with a tunneled catheter to complete a 6-week course of treatment for chronic osteomyelitis. The patient reports being at the [facility] facility for less than a day. Because he was not able to keep his vehicle at the facility, he left. He reports not receiving antibiotic therapy since he left the facility. He now returns for treatment. He denies any increased pain or drainage. No complaints of fever or chills. Wound culture done last admission was polymicrobial including MRSA and pseudomonas. PAST MEDICAL HISTORY: Positive for HIV infection since 1991. He is on antiretroviral therapy, reports adherence. Last viral markers from August 2017 showed a viral load of 30 and a T-cell count of 270. He is followed in the [facility]. His past medical history also includes chronic kidney disease, hyperlipidemia, hypertension, asthma. ALLERGIES: To ASPIRIN and PENICILLIN. Patient reports the PENICILLIN allergy occurred many years ago; he is unaware of the nature of the allergy. MEDICATIONS: Include Epzicom, Norvir, Prezista, Tenormin, Lasix, methadone. SOCIAL HISTORY: He is a former IV drug user, states he has not used drugs for 30 years. Positive history of tobacco. No history of alcohol abuse. He was in the community. SYSTEMS REVIEW: Neurologic: No loss of consciousness, seizure activity, or focal weakness. Cardiac: Negative for chest pain or palpitations. Respiratory: Negative for cough or sputum production. Gastrointestinal: Negative for vomiting or diarrhea. Genitourinary: Positive for chronic kidney disease. LABORATORY DATA: White count 3.0, hematocrit 34.0, platelet count 168. BUN 89, creatinine 5.7. Sedimentation rate 88. PHYSICAL EXAMINATION: General: He is awake and alert. He is not acutely toxic-appearing. Hard of hearing, he wears a hearing aid. Vital signs: Temperature 97, blood pressure 110/59, pulse 56 and regular, respirations 18 per minute. HEENT: Sclerae anicteric. A tunneled catheter is present in the right chest. No erythema or tenderness present. Heart: Heart sounds S1, S2. Lungs: Clear. Abdomen: Soft. No tenderness elicited. No mass, rebound, or rigidity. Extremities: Negative for edema. Examination of the right great toe, there is a necrotic malodorous ulceration on the plantar aspect of the right great toe. There is no purulent drainage and no erythema. IMPRESSION: 1. Infected right great toe ulcer/chronic osteomyelitis. 2. Chronic kidney disease. 3. Human immunodeficiency virus positive, asymptomatic. Resume antibiotic coverage with vancomycin and cefepime plus Flagyl adjusted for chronic renal failure, obtain vancomycin trough level, follow up ESR and C-reactive protein, surgical evaluation for consideration of debridement of the ulcer, continue antiretroviral therapy, local wound care. Thank you for the kind referral. JUSTIN JOHN M.D. [id number]
[2017-11-26] MEDS: MAGNESIUM CL 64 MG TABLET.SA PO SCH (15:59)
[2017-11-26] MEDS: CEFEPIME HCL/D5W 1 GM/50 ML BAG IVPB SCH (16:04)
[2017-11-26] MEDS: metroNIDAZOLE 250 MG TABLET PO SCH ×2 (16:05→22:37)
[2017-11-26] MEDS: SODIUM CHLORIDE 1,000 ML IV SCH ×2 (16:06→18:54)
--- NOTE | 2017-11-26 19:24 | PN ---
Physical Exam: SUBJECTIVE: Patient seen and examined. Said he left the [facility] because there was no place to park his car. Has been sleeping at night at home. Denies injecting anything into the TLC. Refused to allow me to remove it. OBJECTIVE: Vital Signs Period Temp Pulse Resp BP Sys/Pearl Pulse Ox Last 24 Hr 97 F-98 F 56-64 16-20 98-130/59-71 97-98 GENERAL: The patient is awake, alert, and fully oriented, in no acute distress. LUNGS: Right subclavian TLC; breath sounds equal, clear to auscultation bilaterally, no wheezes, no crackles, no accessory muscle use. HEART: Regular rate and rhythm, S1, S2 ABDOMEN: Soft, nontender, nondistended EXTREMITIES: b/l 1+ leg edema; right great toe ulcer with exposed tendon, dry, dessicated wound NEUROLOGICAL: Cranial nerves II through XII grossly intact. PSYCH: Normal mood, normal affect. SKIN: Warm, dry, normal turgor, no rashes or lesions noted Laboratory Results - last 24 hr 11/26/17 11/26/17 11/26/17 06:16 06:20 09:01 WBC 3.0 L RBC 3.55 L Hgb 11.4 L Hct 34.0 L MCV 95.8 MCH 32.2 MCHC 33.6 RDW 15.0 Plt Count 168 MPV 10.1 Absolute Neuts (auto) 1.6 Neutrophils % 52.4 D Lymphocytes % 25.7 D Monocytes % 12.6 H Eosinophils % 8.3 H D Basophils % 1.0 Nucleated RBC % 0 Retic Count Sodium Potassium Chloride Carbon Dioxide Anion Gap BUN Creatinine Creat Clearance w eGFR POC Glucometer 150 Random Glucose Calcium Phosphorus Magnesium Ferritin Cancelled Total Bilirubin AST ALT Alkaline Phosphatase C-Reactive Protein Total Protein Albumin Vancomycin Pre-Dose 11/26/17 11/26/17 11/26/17 09:01 09:01 10:26 WBC RBC Hgb Hct MCV MCH MCHC RDW Plt Count MPV Absolute Neuts (auto) Neutrophils % Lymphocytes % Monocytes % Eosinophils % Basophils % Nucleated RBC % Retic Count 1.57 H D Sodium 134 L Potassium 4.3 Chloride 97 L Carbon Dioxide 26 Anion Gap 11 BUN 89 H Creatinine 5.7 H Creat Clearance w eGFR 10.06 POC Glucometer Random Glucose 110 H Calcium 8.5 Phosphorus 4.8 D Magnesium 2.5 H D Ferritin 392.2 H Total Bilirubin 0.2 AST 120 H ALT 51 Alkaline Phosphatase 49 C-Reactive Protein 1.1 H Total Protein 7.9 Albumin 3.1 L Vancomycin Pre-Dose 0.90 L* 11/26/17 12:40 WBC RBC Hgb Hct MCV MCH MCHC RDW Plt Count MPV Absolute Neuts (auto) Neutrophils % Lymphocytes % Monocytes % Eosinophils % Basophils % Nucleated RBC % Retic Count Sodium Potassium Chloride Carbon Dioxide Anion Gap BUN Creatinine Creat Clearance w eGFR POC Glucometer Random Glucose Calcium Phosphorus Magnesium Ferritin Total Bilirubin AST ALT Alkaline Phosphatase C-Reactive Protein 1.1 H Total Protein Albumin Vancomycin Pre-Dose Active Medications Generic Name Dose Route Start Last Admin Trade Name Freq PRN Reason Stop Dose Admin Abacavir Sulfate 600 mg 11/26/17 10:00 11/26/17 10:55 Ziagen - PO 600 mg DAILY THOMAS Administration Albuterol Sulfate 1 amp 11/25/17 23:37 Ventolin 0.083% Nebulizer Soln - NEB Q6H PRN SHORT OF BREATH/WHEEZING Atenolol 25 mg 11/26/17 10:00 11/26/17 11:33 Tenormin - PO Not Given DAILY THOMAS Darunavir 800 mg 11/26/17 22:00 Prezista - PO HS THOMAS Heparin Sodium (Porcine) 5,000 unit 11/26/17 06:00 11/26/17 15:11 Heparin - SQ Not Given TID THOMAS Sodium Chloride 1,000 mls @ 150 mls/hr 11/26/17 13:00 11/26/17 18:54 Normal Saline - IV 150 mls/hr ASDIR THOMAS Administration Cefepime HCl 1 gm in 50 mls @ 100 mls/hr 11/26/17 14:00 11/26/17 16:04 Maxipime 1 Gm Premix Ivpb IVPB 100 mls/hr DAILY THOMAS Administration Protocol Lamivudine 150 mg 11/27/17 10:00 Epivir - PO DAILY THOMAS Magnesium Chloride 64 mg 11/26/17 10:00 11/26/17 15:59 Slow-Mag - PO 64 mg DAILY THOMAS Administration Methadone HCl 40 mg/ Methadone 70 mg 11/26/17 09:15 11/26/17 10:55 HCl 30 mg PO 70 mg DAILY@0600 THOMAS Administration Metronidazole 500 mg 11/26/17 14:00 11/26/17 16:05 Flagyl - PO 500 mg TID THOMAS Administration Multivitamins/Minerals/Vitamin C 1 tab 11/26/17 10:00 11/26/17 10:55 Tab-A-Vit - PO 1 tab DAILY THOMAS Administration Nicotine 7 mg 11/26/17 10:00 11/26/17 10:59 Nicoderm Patch - TD 7 mg DAILY THOMAS Administration Nifedipine 30 mg 11/26/17 10:00 11/26/17 11:05 Procardia Xl - PO 30 mg DAILY THOMAS Administration Ritonavir 100 mg 11/26/17 10:00 11/26/17 10:57 Norvir - PO 100 mg DAILY THOMAS Administration ASSESSMENT/PLAN 67 year-old male with a PMH significant for HTN, HLD, HIV, IVDA (heroin, on methadone), CKD, asthma, and chronic right great toe osteomyelitis, discharged from [facility] on 11/18 to SNF for long-term antibiotic therapy. Patient left SNF with TLC in place. Patient returned to ED for treatment. Right great toe osteomyelitis --IR removed tunnel cath --pancultured --continue antibiotic regimen from previous discharge: Cefepime 1g daily, Vanc 1g q48h dosed by trough @15, metronidazole PO 500mg TID x 14 days --weekly esr, crp CKD --BUN/Cr 89/5.7 on admission --IV fluids HIV --continue HAART meds --ID to follow Asthma --albuterol nebs PRN Methadone dependency --70mg daily Hypertension --continue atenolol DVT prophylaxis: subq heparin Dispo: continues to require inpatient care. Will need to arrange for patient to be seen daily in [facility] on 7th floor. Full code. Visit type - Emergency Visit Emergency Visit: Yes ED Registration Date: 11/25/17 Care time: The patient presented to the Emergency Department on the above date and was hospitalized for further evaluation of their emergent condition. - New Patient This patient is new to me today: Yes Date on this admission: 11/29/17 - Critical Care Critical Care patient: No
[2017-11-26 20:05] LABS: URINE APPEARANCE CLEAR; URINE BILIRUBIN NEGATIVE (<2.0 mg/dL); URINE COLOR LTYELLOW; URINE GLUCOSE (UA) NEGATIVE (NEGATIVE); URINE KETONE NEGATIVE (NEGATIVE); URINE LEUK ESTERASE NEGATIVE (NEGATIVE); URINE NITRITE NEGATIVE (NEGATIVE); URINE UROBILINOGEN NEGATIVE mg/dL (0.2-1.0)
[2017-11-26 20:06] LABS: URINE AMPHETAMINES NEGATIVE ng/ml (CUTOFF=500); URINE BARBITURATES NEGATIVE ng/ml (CUTOFF=200)
[2017-11-26 20:07] LABS: COCAINE, UR NEGATIVE ng/ml (CUTOFF=300); OPIATES, URI NEGATIVE ng/ml (CUTOFF=300); PHENCYCLIDINE,URINE NEGATIVE ng/ml (CUTOFF=25); URINE BENZODIAZEPINES NEGATIVE ng/ml (CUTOFF=200); URINE PROTEIN 2+ (NEGATIVE)
[2017-11-26 20:08] LABS: METHADONE, UR POSITIVE ng/ml (CUTOFF=300)
[2017-11-26 21:22] LABS: EPI CELLS RARE /HPF (FEW)
[2017-11-26] MEDS: DARUNAVIR ETHANOLATE 800 MG TAB PO SCH (22:36)
[2017-11-27] MEDS ORDERED: METHADONE HCL 40 MG DISPERSABLE TABLET ONE (05:47)
[2017-11-27] MEDS ORDERED: METHADONE HCL 10 MG TABLET ONE (05:47)
[2017-11-27] MEDS: METHADONE 40 MG, METHADONE 30 MG PO SCH (05:55)
[2017-11-27] MEDS: HEPARIN NA (PORCINE) 5,000 UNITS/ML 1ML VIAL SQ SCH ×3 (05:56→21:05)
[2017-11-27] MEDS: metroNIDAZOLE 250 MG TABLET PO SCH ×3 (05:56→21:05)
[2017-11-27 06:19] LABS: SERUM IRON SATURATION 29 % (15-55); TOTAL IRON BINDING CAPACITY 219 ug/dL (250-450); UIBC 156 ug/dL (111-343)
--- NOTE | 2017-11-27 09:02 | PN ---
Progress Note, Physician History of Present Illness: Awake, alert Seated in bed No c/o foot pain No fever/ chills Tunnelled catheter removed Vancomycin level from today pending - Current Medication List Current Medications: Active Medications Abacavir Sulfate (Ziagen -) 600 mg PO DAILY [facility] Last Admin: 11/26/17 10:55 Dose: 600 mg Albuterol Sulfate (Ventolin 0.083% Nebulizer Soln -) 1 amp NEB Q6H PRN PRN Reason: SHORT OF BREATH/WHEEZING Atenolol (Tenormin -) 25 mg PO DAILY [facility] Last Admin: 11/26/17 11:33 Dose: Not Given Collagenase (Santyl -) 1 applic TP DAILY [facility]; Protocol Darunavir (Prezista -) 800 mg PO HS [facility] Last Admin: 11/26/17 22:36 Dose: 800 mg Heparin Sodium (Porcine) (Heparin -) 5,000 unit SQ TID [facility] Last Admin: 11/27/17 05:56 Dose: 5,000 unit Sodium Chloride (Normal Saline -) 1,000 mls @ 150 mls/hr IV ASDIR [facility] Last Admin: 11/26/17 18:54 Dose: 150 mls/hr Cefepime HCl (Maxipime 1 Gm Premix Ivpb) 1 gm in 50 mls @ 100 mls/hr IVPB DAILY [facility]; Protocol Last Admin: 11/26/17 16:04 Dose: 100 mls/hr Lamivudine (Epivir -) 150 mg PO DAILY [facility] Magnesium Chloride (Slow-Mag -) 64 mg PO DAILY [facility] Last Admin: 11/26/17 15:59 Dose: 64 mg Methadone HCl 40 mg/ Methadone (HCl 30 mg) 70 mg PO DAILY@0600 [facility] Last Admin: 11/27/17 05:55 Dose: 70 mg Metronidazole (Flagyl -) 500 mg PO TID [facility] Last Admin: 11/27/17 05:56 Dose: 500 mg Multivitamins/Minerals/Vitamin C (Tab-A-Vit -) 1 tab PO DAILY [facility] Last Admin: 11/26/17 10:55 Dose: 1 tab Nicotine (Nicoderm Patch -) 7 mg TD DAILY [facility] Last Admin: 11/26/17 10:59 Dose: 7 mg Nifedipine (Procardia Xl -) 30 mg PO DAILY [facility] Last Admin: 11/26/17 11:05 Dose: 30 mg Ritonavir (Norvir -) 100 mg PO DAILY [facility] Last Admin: 11/26/17 10:57 Dose: 100 mg - Objective Vital Signs: Vital Signs Temperature 97.7 F 11/27/17 04:00 Pulse Rate 60 11/27/17 04:00 Respiratory Rate 18 11/27/17 04:00 Blood Pressure 119/68 11/27/17 04:00 O2 Sat by Pulse Oximetry (%) 98 11/26/17 21:00 Constitutional: Yes: No Distress Cardiovascular: Yes: Regular Rate and Rhythm, S1, S2 Respiratory: Yes: CTA Bilaterally Gastrointestinal: Yes: Normal Bowel Sounds, Soft. No: Tenderness Extremities: Yes: Other (R great toe plantar ulcer dry, necrotic) Labs: CBC, BMP 11/26/17 09:01 11/26/17 09:01 Assessment/Plan Infected R great toe ulcer/ osteomyelitis CKD HIV stable Continue cefepime Check vancomycin level Redose 1gm for level < 15
[2017-11-27 09:59] LABS: BASO % 0.7 % (0-2.0); EOS % 7.4 % (0-4.5); HEMATOCRIT 32.9 % (35.4-49); HEMOGLOBIN 10.9 GM/dL (11.7-16.9); LYMPH % 15.5 % (8-40); MCH 31.9 pg (25.7-33.7); MCHC 33.2 g/dl (32.0-35.9); MEAN CELL VOLUME 96.2 fl (80-96); MEAN PLT VOLUME 10.2 fl (7.5-11.1); MONO % 10.7 % (3.8-10.2); NEUT % 65.7 % (42.8-82.8); PLATELET COUNT 167 K/MM3 (134-434); RBC 3.41 M/mm3 (4.00-5.60); WHITE BLOOD COUNT 3.4 K/mm3 (4.0-10.0)
[2017-11-27 10:25] LABS: ALBUMIN 3.3 g/dl (3.4-5.0); ANION GAP 9 (8-16); BILIRUBIN,TOTAL 0.3 mg/dL (0.2-1.0); BLOOD UREA NITROGEN 78 mg/dL (7-18); CALCIUM 8.7 mg/dL (8.5-10.1); CHLORIDE 101 mmol/L (98-107); CO2 27 mmol/L (21-32); CREATININE 4.3 mg/dL (0.7-1.3); GLUCOSE,RANDOM 138 mg/dL (74-106); MAGNESIUM 2.2 mg/dL (1.8-2.4); PHOSPHOROUS 4.5 mg/dL (2.5-4.9); POTASSIUM 4.1 mmol/L (3.5-5.1); SGOT/AST 110 U/L (15-37); SGPT/ALT 49 U/L (12-78); SODIUM 137 mmol/L (136-145)
[2017-11-27 10:26] LABS: ALK PHOS 52 U/L (45-117)
[2017-11-27] MEDS: NIFEdipine E.R. 30 MG TABLET (FP) PO SCH (10:32)
[2017-11-27] MEDS: ATENOLOL 25 MG TABLET (FP) PO SCH (10:32)
[2017-11-27] MEDS: NICOTINE 7 MG/24 HOURS TOPICAL PATCH TD SCH (10:32)
[2017-11-27] MEDS: MULTIVITAMINS (DAILY MVI) TABLET (FP) PO SCH (10:32)
[2017-11-27] MEDS: CEFEPIME HCL/D5W 1 GM/50 ML BAG IVPB SCH (10:34)
[2017-11-27] MEDS ORDERED: PT OWN MED DRAWER 7, Y5N ONE (10:37)
[2017-11-27] MEDS: lamiVUDine 150 MG TABLET PO SCH (10:38)
[2017-11-27] MEDS: MAGNESIUM CL 64 MG TABLET.SA PO SCH (10:38)
[2017-11-27] MEDS: RITONAVIR 100 MG TABLET PO SCH (10:39)
[2017-11-27] MEDS: ABACAVIR SULFATE 300 MG TABLET PO SCH (10:39)
[2017-11-27] MEDS: COLLAGENASE CLOSTRIDIUM HIST. 30 GRAMS TUBE TP SCH ×2 (10:40→18:38)
--- NOTE | 2017-11-27 12:04 | PN ---
Physical Exam: SUBJECTIVE: Patient seen and examined OBJECTIVE: Vital Signs Period Temp Pulse Resp BP Sys/Pearl Pulse Ox Last 24 Hr 97.4 F-98 F 57-64 18-20 113-130/64-73 98 GENERAL: The patient is awake, alert, and fully oriented, in no acute distress. LUNGS: Right subclavian TLC; breath sounds equal, clear to auscultation bilaterally, no wheezes, no crackles, no accessory muscle use. HEART: Regular rate and rhythm, S1, S2 ABDOMEN: Soft, nontender, nondistended EXTREMITIES: b/l 1+ leg edema; right great toe ulcer with exposed tendon, dry, dessicated wound NEUROLOGICAL: Cranial nerves II through XII grossly intact. PSYCH: Normal mood, normal affect. SKIN: Warm, dry, normal turgor, no rashes or lesions noted Laboratory Results - last 24 hr 11/26/17 11/26/17 11/26/17 06:20 09:01 09:01 WBC 3.0 L RBC 3.55 L Hgb 11.4 L Hct 34.0 L MCV 95.8 MCH 32.2 MCHC 33.6 RDW 15.0 Plt Count 168 MPV 10.1 Absolute Neuts (auto) 1.6 Neutrophils % 52.4 D Lymphocytes % 25.7 D Monocytes % 12.6 H Eosinophils % 8.3 H D Basophils % 1.0 Nucleated RBC % 0 Sodium 134 L Potassium 4.3 Chloride 97 L Carbon Dioxide 26 Anion Gap 11 BUN 89 H Creatinine 5.7 H Creat Clearance w eGFR 10.06 POC Glucometer Random Glucose 110 H Calcium 8.5 Phosphorus 4.8 D Magnesium 2.5 H D Iron TIBC Iron Saturation Ferritin Cancelled 392.2 H Total Bilirubin 0.2 AST 120 H ALT 51 Alkaline Phosphatase 49 C-Reactive Protein 1.1 H Total Protein 7.9 Albumin 3.1 L Urine Color Urine Appearance Urine pH Ur Specific [place] Urine Protein Urine Glucose (UA) Urine Ketones Urine Blood Urine Nitrite Urine Bilirubin Urine Urobilinogen Ur Leukocyte Esterase Urine WBC (Auto) Urine RBC (Auto) Ur Epithelial Cells Ur Random Sodium Ur Random Potassium Ur Random Chloride Urine Creatinine Random Vancomycin Opiates Screen Methadone Screen Barbiturate Screen Phencyclidine Screen Ur Amphetamines Screen MDMA (Ecstasy) Screen Benzodiazepines Screen Cocaine Screen U Marijuana (THC) Screen 11/26/17 11/26/17 11/26/17 09:01 12:40 19:30 WBC RBC Hgb Hct MCV MCH MCHC RDW Plt Count MPV Absolute Neuts (auto) Neutrophils % Lymphocytes % Monocytes % Eosinophils % Basophils % Nucleated RBC % Sodium Potassium Chloride Carbon Dioxide Anion Gap BUN Creatinine Creat Clearance w eGFR POC Glucometer Random Glucose Calcium Phosphorus Magnesium Iron 63 TIBC 219 L Iron Saturation 29 Ferritin Total Bilirubin AST ALT Alkaline Phosphatase C-Reactive Protein 1.1 H Total Protein Albumin Urine Color Urine Appearance Urine pH Ur Specific [place] Urine Protein Urine Glucose (UA) Urine Ketones Urine Blood Urine Nitrite Urine Bilirubin Urine Urobilinogen Ur Leukocyte Esterase Urine WBC (Auto) Urine RBC (Auto) Ur Epithelial Cells Ur Random Sodium 50 Ur Random Potassium 30.8 Ur Random Chloride 52 Urine Creatinine Random Vancomycin Opiates Screen Methadone Screen Barbiturate Screen Phencyclidine Screen Ur Amphetamines Screen MDMA (Ecstasy) Screen Benzodiazepines Screen Cocaine Screen U Marijuana (THC) Screen 11/26/17 11/26/17 11/26/17 19:30 19:30 19:30 WBC RBC Hgb Hct MCV MCH MCHC RDW Plt Count MPV Absolute Neuts (auto) Neutrophils % Lymphocytes % Monocytes % Eosinophils % Basophils % Nucleated RBC % Sodium Potassium Chloride Carbon Dioxide Anion Gap BUN Creatinine Creat Clearance w eGFR POC Glucometer Random Glucose Calcium Phosphorus Magnesium Iron TIBC Iron Saturation Ferritin Total Bilirubin AST ALT Alkaline Phosphatase C-Reactive Protein Total Protein Albumin Urine Color Ltyellow Urine Appearance Clear Urine pH 5.0 Ur Specific [place] 1.010 Urine Protein 2+ H Urine Glucose (UA) Negative Urine Ketones Negative Urine Blood Negative Urine Nitrite Negative Urine Bilirubin Negative Urine Urobilinogen Negative Ur Leukocyte Esterase Negative Urine WBC (Auto) 1 Urine RBC (Auto) <1 Ur Epithelial Cells Rare Ur Random Sodium Ur Random Potassium Ur Random Chloride Urine Creatinine 74.5 Random Vancomycin Opiates Screen Negative Methadone Screen Positive Barbiturate Screen Negative Phencyclidine Screen Negative Ur Amphetamines Screen Negative MDMA (Ecstasy) Screen Negative Benzodiazepines Screen Negative Cocaine Screen Negative U Marijuana (THC) Screen Negative 11/26/17 11/27/17 11/27/17 22:46 06:35 09:10 WBC RBC Hgb Hct MCV MCH MCHC RDW Plt Count MPV Absolute Neuts (auto) Neutrophils % Lymphocytes % Monocytes % Eosinophils % Basophils % Nucleated RBC % Sodium Potassium Chloride Carbon Dioxide Anion Gap BUN Creatinine Creat Clearance w eGFR POC Glucometer 112 86 Random Glucose Calcium Phosphorus Magnesium Iron TIBC Iron Saturation Ferritin Total Bilirubin AST ALT Alkaline Phosphatase C-Reactive Protein Total Protein Albumin Urine Color Urine Appearance Urine pH Ur Specific [place] Urine Protein Urine Glucose (UA) Urine Ketones Urine Blood Urine Nitrite Urine Bilirubin Urine Urobilinogen Ur Leukocyte Esterase Urine WBC (Auto) Urine RBC (Auto) Ur Epithelial Cells Ur Random Sodium Ur Random Potassium Ur Random Chloride Urine Creatinine Random Vancomycin 11.85 Opiates Screen Methadone Screen Barbiturate Screen Phencyclidine Screen Ur Amphetamines Screen MDMA (Ecstasy) Screen Benzodiazepines Screen Cocaine Screen U Marijuana (THC) Screen 11/27/17 11/27/17 09:10 09:10 WBC 3.4 L RBC 3.41 L Hgb 10.9 L Hct 32.9 L MCV 96.2 H MCH 31.9 MCHC 33.2 RDW 15.0 Plt Count 167 MPV 10.2 Absolute Neuts (auto) 2.3 Neutrophils % 65.7 D Lymphocytes % 15.5 D Monocytes % 10.7 H Eosinophils % 7.4 H Basophils % 0.7 Nucleated RBC % 0 Sodium 137 Potassium 4.1 Chloride 101 Carbon Dioxide 27 Anion Gap 9 BUN 78 H Creatinine 4.3 H Creat Clearance w eGFR 13.93 POC Glucometer Random Glucose 138 H D Calcium 8.7 Phosphorus 4.5 Magnesium 2.2 Iron TIBC Iron Saturation Ferritin Total Bilirubin 0.3 AST 110 H ALT 49 Alkaline Phosphatase 52 C-Reactive Protein Total Protein 8.0 Albumin 3.3 L Urine Color Urine Appearance Urine pH Ur Specific [place] Urine Protein Urine Glucose (UA) Urine Ketones Urine Blood Urine Nitrite Urine Bilirubin Urine Urobilinogen Ur Leukocyte Esterase Urine WBC (Auto) Urine RBC (Auto) Ur Epithelial Cells Ur Random Sodium Ur Random Potassium Ur Random Chloride Urine Creatinine Random Vancomycin Opiates Screen Methadone Screen Barbiturate Screen Phencyclidine Screen Ur Amphetamines Screen MDMA (Ecstasy) Screen Benzodiazepines Screen Cocaine Screen U Marijuana (THC) Screen Active Medications Generic Name Dose Route Start Last Admin Trade Name Freq PRN Reason Stop Dose Admin Abacavir Sulfate 600 mg 11/26/17 10:00 11/27/17 10:39 Ziagen - PO 600 mg DAILY THOMAS Administration Albuterol Sulfate 1 amp 11/25/17 23:37 Ventolin 0.083% Nebulizer Soln - NEB Q6H PRN SHORT OF BREATH/WHEEZING Atenolol 25 mg 11/26/17 10:00 11/27/17 10:32 Tenormin - PO 25 mg DAILY THOMAS Administration Collagenase 1 applic 11/27/17 10:00 11/27/17 10:40 Santyl - TP 1 applic DAILY THOMAS Administration Protocol Darunavir 800 mg 11/26/17 22:00 11/26/17 22:36 Prezista - PO 800 mg HS THOMAS Administration Heparin Sodium (Porcine) 5,000 unit 11/26/17 06:00 11/27/17 05:56 Heparin - SQ 5,000 unit TID THOMAS Administration Sodium Chloride 1,000 mls @ 150 mls/hr 11/26/17 13:00 11/26/17 18:54 Normal Saline - IV 150 mls/hr ASDIR [facility]OM[facility] Administration Cefepime HCl 1 gm in 50 mls @ 100 mls/hr 11/26/17 14:00 11/27/17 10:34 Maxipime 1 Gm Premix Ivpb IVPB 100 mls/hr DAILY [facility]OM[facility] Administration Protocol Lamivudine 150 mg 11/27/17 10:00 11/27/17 10:38 Epivir - PO 150 mg DAILY THOMAS Administration Magnesium Chloride 64 mg 11/26/17 10:00 11/27/17 10:38 Slow-Mag - PO 64 mg DAILY THOMAS Administration Methadone HCl 40 mg/ Methadone 70 mg 11/26/17 09:15 11/27/17 05:55 HCl 30 mg PO 70 mg DAILY@0600 THOMAS Administration Metronidazole 500 mg 11/26/17 14:00 11/27/17 05:56 Flagyl - PO 500 mg TID THOMAS Administration Multivitamins/Minerals/Vitamin C 1 tab 11/26/17 10:00 11/27/17 10:32 Tab-A-Vit - PO 1 tab DAILY THOMAS Administration Nicotine 7 mg 11/26/17 10:00 11/27/17 10:32 Nicoderm Patch - TD 7 mg DAILY THOMAS Administration Nifedipine 30 mg 11/26/17 10:00 11/27/17 10:32 Procardia Xl - PO 30 mg DAILY THOMAS Administration Ritonavir 100 mg 11/26/17 10:00 11/27/17 10:39 Norvir - PO 100 mg DAILY THOMAS Administration ASSESSMENT/PLAN: 67 year-old male with a PMH significant for HTN, HLD, HIV, IVDA (heroin, on methadone), CKD, asthma, and chronic right great toe osteomyelitis, discharged from [facility] on 11/18 to SNF for long-term antibiotic therapy. Patient left SNF with TLC in place. Patient returned to ED for treatment. Right great toe osteomyelitis --IR removed tunnel cath --afebrile; leukopenic but this is chronic --continue antibiotic regimen from previous discharge: Cefepime 1g daily, Vanc 1g q48h dosed by trough @15, metronidazole PO 500mg TID x 14 days --weekly esr, crp --ID following CKD --BUN/Cr 89/5.7 on admission, trending down --continue IV fluids HIV --continue HAART meds Asthma --albuterol nebs PRN Methadone dependency --70mg daily Hypertension --continue atenolol DVT prophylaxis: subq heparin Dispo: continues to require inpatient care. Will need to arrange for patient to be seen daily in Infusion Center on 7th floor. Full code. Visit type - Emergency Visit Emergency Visit: Yes ED Registration Date: 11/25/17 Care time: The patient presented to the Emergency Department on the above date and was hospitalized for further evaluation of their emergent condition. - New Patient This patient is new to me today: No - Critical Care Critical Care patient: No
[2017-11-27] MEDS: SODIUM CHLORIDE 1,000 ML IV SCH ×2 (15:58→22:58)
[2017-11-27 18:54] VITALS: BMI 25.7
[2017-11-27] MEDS: DARUNAVIR ETHANOLATE 800 MG TAB PO SCH (21:07)
[2017-11-27 22:07] LABS: URINE APPEARANCE CLEAR; URINE BILIRUBIN NEGATIVE (<2.0 mg/dL); URINE COLOR LTYELLOW; URINE GLUCOSE (UA) 1+ (NEGATIVE); URINE KETONE NEGATIVE (NEGATIVE); URINE LEUK ESTERASE NEGATIVE (NEGATIVE); URINE NITRITE NEGATIVE (NEGATIVE); URINE UROBILINOGEN NEGATIVE mg/dL (0.2-1.0)
[2017-11-27 22:09] LABS: URINE PROTEIN 2+ (NEGATIVE)
--- NOTE | 2017-11-27 22:17 | CON.NEP ---
Consult Consult Specialty:: nephrology Referred by:: dickson Reason for Consultation:: kidney failure - History of Present Illness Chief Complaint: lower ext infection History of Present Illness: s/p hosp discharge to rehab for iv abx returned to this hosp because of needing a place to park his car denies any new meds, or any new malaise or symptoms no urinary symptoms from his baseline - Past Medical History Cardio/Vascular: Yes: HTN, Hyperlipdemia Pulmonary: Yes: Asthma Renal/: Yes: Renal Inusuff Infectious Disease: Yes: HIV Psych: Yes: Depression - Alcohol/Substance Use Hx Alcohol Use: No History of Substance Use: reports: Heroin - Smoking History Smoking history: Current every day smoker Have you smoked in the past 12 months: Yes Aproximately how many cigarettes per day: 10 - Social History ADL: Independent History of Recent Travel: No Home Medications - Allergies Allergies/Adverse Reactions: Allergies Allergy/AdvReac Type Severity Reaction Status Date / Time aspirin Allergy Unknown Rash Verified 11/25/17 14:04 tomatoes Allergy Mild Uncoded 11/25/17 14:04 - Home Medications Home Medications: Ambulatory Orders Methadone HCl 80 mg PO DAILY 10/30/15 Abacavir Sulfate/Lamivudine [Epzicom Tablet] 1 tablet PO DAILY #30 tablet Albuterol Sulfate Inhaler - [Ventolin HFA Inhaler -] 1 - 2 inh PO QID #1 inhaler 09/10/17 Atenolol [Tenormin] 25 mg PO DAILY #30 tablet 09/10/17 Darunavir Ethanolate [Prezista] 800 mg PO HS #30 tablet 09/10/17 Furosemide [Lasix -] 1 tab PO BID #60 tab 09/10/17 Magnesium Chloride [Slow-Mag -] 1 tab PO DAILY #30 tablet.sa 09/10/17 Multivitamins [Multivit ([facility] Formulary)] 1 tab PO DAILY #30 tab 09/10/17 Nifedipine [Procardia Xl] 30 mg PO DAILY #30 tab.er.24 09/10/17 Ritonavir [Norvir -] 100 mg PO DAILY #30 tab 09/10/17 Family Disease History - Family Disease History Family Disease History: Other: Father (HTN-), Brother (HTN-ALL FIVE BROTHERS), Sister (HTN) Nephrology Consult - Height Height: 6 ft 4 in - Weight Weight: 211 lb 10.3 oz - BMI Body Mass Index (BMI): 25.7 - Lab Results CBC,BMP: CBC, BMP 11/27/17 09:10 11/27/17 09:10 Anion Gap: Anion Gap Anion Gap 9 (8-16) 11/27/17 09:10 - Physical Examination Vital Signs: Vital Signs Temperature 98.9 F 11/27/17 21:00 Pulse Rate 65 11/27/17 21:00 Respiratory Rate 18 11/27/17 21:00 Blood Pressure 115/70 11/27/17 21:00 O2 Sat by Pulse Oximetry (%) 97 11/27/17 21:00 Assessment/Plan acute kidney injury- but renal function is improving unclear cause likely dehydration during his post hospital discharge period urine is dilute and without sediment or cellular elements c/ w inflammatory process but seems to have a degree of proteinuria- urine protein eval is pending of note he has only dilute urines on record going back to 2012- r/o a concentrating defect Plan- continue ivf follow serum cehms follow i and o
[2017-11-27] MEDS: INSULIN SLIDING SCALE (NOVOLOG) 1 VIAL SQ SCH (22:59)
[2017-11-28] MEDS ORDERED: METHADONE HCL 10 MG TABLET ONE (05:09)
[2017-11-28] MEDS ORDERED: METHADONE HCL 40 MG DISPERSABLE TABLET ONE (05:10)
[2017-11-28] MEDS: SODIUM CHLORIDE 1,000 ML IV SCH (05:48)
[2017-11-28] MEDS: METHADONE 40 MG, METHADONE 30 MG PO SCH (05:49)
[2017-11-28] MEDS: metroNIDAZOLE 250 MG TABLET PO SCH ×3 (05:50→21:41)
[2017-11-28] MEDS: HEPARIN NA (PORCINE) 5,000 UNITS/ML 1ML VIAL SQ SCH ×3 (05:50→21:41)
[2017-11-28] MEDS: INSULIN SLIDING SCALE (NOVOLOG) 1 VIAL SQ SCH ×4 (06:00→21:46)
[2017-11-28 08:27] LABS: CHLORIDE 107 mmol/L (98-107); POTASSIUM 4.6 mmol/L (3.5-5.1); SODIUM 140 mmol/L (136-145)
[2017-11-28 08:30] LABS: BASO % 0.9 % (0-2.0); EOS % 8.7 % (0-4.5); HEMATOCRIT 29.3 % (35.4-49); MCH 32.9 pg (25.7-33.7); MCHC 34.1 g/dl (32.0-35.9); MEAN CELL VOLUME 96.6 fl (80-96); MEAN PLT VOLUME 10.1 fl (7.5-11.1); MONO % 17.7 % (3.8-10.2); NEUT % 49.7 % (42.8-82.8); PLATELET COUNT 152 K/MM3 (134-434); RBC 3.03 M/mm3 (4.00-5.60); WHITE BLOOD COUNT 2.7 K/mm3 (4.0-10.0)
[2017-11-28 08:39] LABS: ALBUMIN 2.8 g/dl (3.4-5.0); ALK PHOS 44 U/L (45-117); ANION GAP 7 (8-16); BILIRUBIN,DIRECT < 0.2 mg/dL (0.0-0.2); BILIRUBIN,TOTAL 0.2 mg/dL (0.2-1.0); BLOOD UREA NITROGEN 66 mg/dL (7-18); CALCIUM 8.2 mg/dL (8.5-10.1); CO2 26 mmol/L (21-32); CREATININE 3.2 mg/dL (0.7-1.3); GLUCOSE,RANDOM 94 mg/dL (74-106); MAGNESIUM 1.8 mg/dL (1.8-2.4); SGOT/AST 88 U/L (15-37); SGPT/ALT 39 U/L (12-78); TOT PROT 6.9 g/dl (6.4-8.2)
[2017-11-28] MEDS ORDERED: PT OWN MED DRAWER 7, Y5N ONE (09:31)
[2017-11-28] MEDS: NIFEdipine E.R. 30 MG TABLET (FP) PO SCH (09:41)
[2017-11-28] MEDS: ABACAVIR SULFATE 300 MG TABLET PO SCH (09:41)
[2017-11-28] MEDS: MULTIVITAMINS (DAILY MVI) TABLET (FP) PO SCH (09:41)
[2017-11-28] MEDS: ATENOLOL 25 MG TABLET (FP) PO SCH (09:42)
[2017-11-28] MEDS: NICOTINE 7 MG/24 HOURS TOPICAL PATCH TD SCH (09:42)
[2017-11-28] MEDS: lamiVUDine 150 MG TABLET PO SCH (09:42)
[2017-11-28] MEDS: CEFEPIME HCL/D5W 1 GM/50 ML BAG IVPB SCH (09:42)
[2017-11-28] MEDS: MAGNESIUM CL 64 MG TABLET.SA PO SCH (09:43)
[2017-11-28] MEDS: RITONAVIR 100 MG TABLET PO SCH (09:43)
[2017-11-28] MEDS: COLLAGENASE CLOSTRIDIUM HIST. 30 GRAMS TUBE TP SCH (09:44)
--- NOTE | 2017-11-28 14:34 | PN ---
Physical Exam: SUBJECTIVE: Patient seen and examined OBJECTIVE: Vital Signs Period Temp Pulse Resp BP Sys/Pearl Pulse Ox Last 24 Hr 97.7 F-98.9 F 59-70 18-20 107-150/57-87 97 GENERAL: The patient is awake, alert, and fully oriented, in no acute distress. LUNGS: Right subclavian TLC; breath sounds equal, clear to auscultation bilaterally, no wheezes, no crackles, no accessory muscle use. HEART: Regular rate and rhythm, S1, S2 ABDOMEN: Soft, nontender, nondistended EXTREMITIES: b/l 1+ leg edema; right great toe ulcer with exposed tendon, dry, dessicated wound NEUROLOGICAL: Cranial nerves II through XII grossly intact. PSYCH: Normal mood, normal affect. SKIN: Warm, dry, normal turgor, no rashes or lesions noted Laboratory Results - last 24 hr 11/27/17 11/27/17 11/27/17 21:00 21:00 21:00 WBC RBC Hgb Hct MCV MCH MCHC RDW Plt Count MPV Absolute Neuts (auto) Neutrophils % Lymphocytes % Monocytes % Eosinophils % Basophils % Nucleated RBC % Sodium Potassium Chloride Carbon Dioxide Anion Gap BUN Creatinine Creat Clearance w eGFR POC Glucometer Random Glucose Calcium Magnesium Total Bilirubin Direct Bilirubin AST ALT Alkaline Phosphatase Total Protein Albumin Urine Color Ltyellow Urine Appearance Clear Urine pH 6.0 Ur Specific [place] 1.010 Urine Protein 2+ H Urine Glucose (UA) 1+ H Urine Ketones Negative Urine Blood Negative Urine Nitrite Negative Urine Bilirubin Negative Urine Urobilinogen Negative Ur Leukocyte Esterase Negative Urine WBC (Auto) 2 Urine RBC (Auto) 2 U Random Total Protein Ur Random Sodium 61 Ur Random Urea Nitrogn Urine Creatinine 62.0 11/27/17 11/27/17 11/27/17 21:00 21:00 21:56 WBC RBC Hgb Hct MCV MCH MCHC RDW Plt Count MPV Absolute Neuts (auto) Neutrophils % Lymphocytes % Monocytes % Eosinophils % Basophils % Nucleated RBC % Sodium Potassium Chloride Carbon Dioxide Anion Gap BUN Creatinine Creat Clearance w eGFR POC Glucometer 317 Random Glucose Calcium Magnesium Total Bilirubin Direct Bilirubin AST ALT Alkaline Phosphatase Total Protein Albumin Urine Color Urine Appearance Urine pH Ur Specific [place] Urine Protein Urine Glucose (UA) Urine Ketones Urine Blood Urine Nitrite Urine Bilirubin Urine Urobilinogen Ur Leukocyte Esterase Urine WBC (Auto) Urine RBC (Auto) U Random Total Protein 99 H Ur Random Sodium Ur Random Urea Nitrogn 501 Urine Creatinine 11/28/17 11/28/17 11/28/17 05:48 07:19 07:19 WBC 2.7 L RBC 3.03 L Hgb 10.0 L Hct 29.3 L MCV 96.6 H MCH 32.9 MCHC 34.1 RDW 15.0 Plt Count 152 MPV 10.1 Absolute Neuts (auto) 1.3 Neutrophils % 49.7 D Lymphocytes % 23.0 D Monocytes % 17.7 H Eosinophils % 8.7 H Basophils % 0.9 Nucleated RBC % 0 Sodium 140 Potassium 4.6 Chloride 107 Carbon Dioxide 26 Anion Gap 7 L BUN 66 H Creatinine 3.2 H Creat Clearance w eGFR 19.59 POC Glucometer 82 Random Glucose 94 D Calcium 8.2 L Magnesium 1.8 Total Bilirubin 0.2 Direct Bilirubin < 0.2 AST 88 H ALT 39 D Alkaline Phosphatase 44 L Total Protein 6.9 Albumin 2.8 L Urine Color Urine Appearance Urine pH Ur Specific [place] Urine Protein Urine Glucose (UA) Urine Ketones Urine Blood Urine Nitrite Urine Bilirubin Urine Urobilinogen Ur Leukocyte Esterase Urine WBC (Auto) Urine RBC (Auto) U Random Total Protein Ur Random Sodium Ur Random Urea Nitrogn Urine Creatinine Active Medications Generic Name Dose Route Start Last Admin Trade Name Freq PRN Reason Stop Dose Admin Abacavir Sulfate 600 mg 11/26/17 10:00 11/28/17 09:41 Ziagen - PO 600 mg DAILY [facility] Administration Albuterol Sulfate 1 amp 11/25/17 23:37 Ventolin 0.083% Nebulizer Soln - NEB Q6H PRN SHORT OF BREATH/WHEEZING Atenolol 25 mg 11/26/17 10:00 11/28/17 09:42 Tenormin - PO 25 mg DAILY [facility] Administration Collagenase 1 applic 11/27/17 10:00 11/28/17 09:44 Santyl - TP 1 appful DAILY [facility] Administration Protocol Darunavir 800 mg 11/26/17 22:00 11/27/17 21:07 Prezista - PO 800 mg HS [facility] Administration Heparin Sodium (Porcine) 5,000 unit 11/26/17 06:00 11/28/17 14:26 Heparin - SQ 5,000 unit TID [facility] Administration Cefepime HCl 1 gm in 50 mls @ 100 mls/hr 11/26/17 14:00 11/28/17 09:42 Maxipime 1 Gm Premix Ivpb IVPB 100 mls/hr DAILY [facility] Administration Protocol Insulin Aspart 1 vial 11/27/17 23:00 11/28/17 12:35 Novolog Vial Sliding Scale - SQ Not Given ACHS [facility] Protocol Lamivudine 150 mg 11/27/17 10:00 11/28/17 09:42 Epivir - PO 150 mg DAILY [facility] Administration Magnesium Chloride 64 mg 11/26/17 10:00 11/28/17 09:43 Slow-Mag - PO 64 mg DAILY [facility] Administration Methadone HCl 40 mg/ Methadone 70 mg 11/26/17 09:15 11/28/17 05:49 HCl 30 mg PO 70 mg DAILY@0600 [facility] Administration Metronidazole 500 mg 11/26/17 14:00 11/28/17 14:25 Flagyl - PO 500 mg TID [facility] Administration Multivitamins/Minerals/Vitamin C 1 tab 11/26/17 10:00 11/28/17 09:41 Tab-A-Vit - PO 1 tab DAILY [facility] Administration Nicotine 7 mg 11/26/17 10:00 11/28/17 09:42 Nicoderm Patch - TD Not Given DAILY [facility] Nifedipine 30 mg 11/26/17 10:00 11/28/17 09:41 Procardia Xl - PO 30 mg DAILY [facility] Administration Ritonavir 100 mg 11/26/17 10:00 11/28/17 09:43 Norvir - PO 100 mg DAILY [facility] Administration ASSESSMENT/PLAN 67 year-old male with a PMH significant for HTN, HLD, HIV, IVDA (heroin, on methadone), CKD, asthma, and chronic right great toe osteomyelitis, discharged from [facility] on 11/18 to SNF for long-term antibiotic therapy. Patient left SNF with TLC in place. Patient returned to ED for treatment. Right great toe osteomyelitis --IR removed tunnel cath --afebrile; leukopenic but this is chronic --continue antibiotic regimen from previous discharge: Cefepime 1g daily, Vanc 1g q48h dosed by trough @15, metronidazole PO 500mg TID x 14 days --weekly esr, crp --ID following CKD --Cr 5.7 on admission, 3.2 today which is baseline --stop IV fluids HIV --continue HAART meds Asthma --albuterol nebs PRN Methadone dependency --70mg daily Hypertension --continue atenolol DVT prophylaxis: subq heparin Dispo: continues to require inpatient care. Will need to arrange for patient to be seen daily in Infusion Center on 7th floor. Need insurance approval. Full code. 3+ tense edema bilateral legs R>L Lungs clear Stop IV fluids Visit type - Emergency Visit Emergency Visit: Yes ED Registration Date: 11/25/17 Care time: The patient presented to the Emergency Department on the above date and was hospitalized for further evaluation of their emergent condition. - New Patient This patient is new to me today: No - Critical Care Critical Care patient: No
[2017-11-28] MEDS: DARUNAVIR ETHANOLATE 800 MG TAB PO SCH (21:43)
--- NOTE | 2017-11-28 21:55 | PN ---
Progress Note (short form) - Note Progress Note: hiv disease ckd jhony on ckd/prerenal toe infection on iv abx DM Current Medications Abacavir Sulfate (Ziagen -) 600 mg PO DAILY [facility] Last Admin: 11/28/17 09:41 Dose: 600 mg Albuterol Sulfate (Ventolin 0.083% Nebulizer Soln -) 1 amp NEB Q6H PRN PRN Reason: SHORT OF BREATH/WHEEZING Atenolol (Tenormin -) 25 mg PO DAILY [facility] Last Admin: 11/28/17 09:42 Dose: 25 mg Collagenase (Santyl -) 1 applic TP DAILY [facility]; Protocol Last Admin: 11/28/17 09:44 Dose: 1 appful Darunavir (Prezista -) 800 mg PO HS [facility] Last Admin: 11/28/17 21:43 Dose: 800 mg Heparin Sodium (Porcine) (Heparin -) 5,000 unit SQ TID [facility] Last Admin: 11/28/17 21:41 Dose: 5,000 unit Cefepime HCl (Maxipime 1 Gm Premix Ivpb) 1 gm in 50 mls @ 100 mls/hr IVPB DAILY [facility]; Protocol Last Admin: 11/28/17 09:42 Dose: 100 mls/hr Insulin Aspart (Novolog Vial Sliding Scale -) 1 vial SQ ACHS [facility]; Protocol Last Admin: 11/28/17 21:46 Dose: Not Given Lamivudine (Epivir -) 150 mg PO DAILY [facility] Last Admin: 11/28/17 09:42 Dose: 150 mg Magnesium Chloride (Slow-Mag -) 64 mg PO DAILY [facility] Last Admin: 11/28/17 09:43 Dose: 64 mg Methadone HCl 40 mg/ Methadone (HCl 30 mg) 70 mg PO DAILY@0600 [facility] Last Admin: 11/28/17 05:49 Dose: 70 mg Metronidazole (Flagyl -) 500 mg PO TID [facility] Last Admin: 11/28/17 21:41 Dose: 500 mg Multivitamins/Minerals/Vitamin C (Tab-A-Vit -) 1 tab PO DAILY [facility] Last Admin: 11/28/17 09:41 Dose: 1 tab Nicotine (Nicoderm Patch -) 7 mg TD DAILY [facility] Last Admin: 11/28/17 09:42 Dose: Not Given Nifedipine (Procardia Xl -) 30 mg PO DAILY [facility] Last Admin: 11/28/17 09:41 Dose: 30 mg Ritonavir (Norvir -) 100 mg PO DAILY [facility] Last Admin: 11/28/17 09:43 Dose: 100 mg Last Vital Signs Temp Pulse Resp BP Pulse Ox 97.8 F 57 L 18 121/63 97 11/28/17 21:38 11/28/17 18:00 11/28/17 21:38 11/28/17 21:38 11/27/17 21:00 lungs clear heart s1s2 Abd soft nontender Ext no edema CBC, BMP 11/28/17 07:19 11/28/17 07:19 IMP- jhony improving renal function is at baseling Plan- hydrate iv if not improving with oral fluids
[2017-11-29] MEDS ORDERED: METHADONE HCL 40 MG DISPERSABLE TABLET ONE (05:19)
[2017-11-29] MEDS ORDERED: METHADONE HCL 10 MG TABLET ONE (05:19)
[2017-11-29] MEDS: METHADONE 40 MG, METHADONE 30 MG PO SCH (05:30)
[2017-11-29] MEDS: HEPARIN NA (PORCINE) 5,000 UNITS/ML 1ML VIAL SQ SCH ×3 (05:30→22:00)
[2017-11-29] MEDS: metroNIDAZOLE 250 MG TABLET PO SCH ×3 (05:31→21:59)
[2017-11-29] MEDS: INSULIN SLIDING SCALE (NOVOLOG) 1 VIAL SQ SCH ×4 (06:10→22:04)
[2017-11-29] MEDS ORDERED: INSULIN (NOVOLOG) ASPART 100 UNITS/ML 10ML VIAL ONE (10:15)
[2017-11-29] MEDS: MULTIVITAMINS (DAILY MVI) TABLET (FP) PO SCH (10:23)
[2017-11-29] MEDS: ATENOLOL 25 MG TABLET (FP) PO SCH (10:23)
[2017-11-29] MEDS: NICOTINE 7 MG/24 HOURS TOPICAL PATCH TD SCH (10:23)
[2017-11-29] MEDS: NIFEdipine E.R. 30 MG TABLET (FP) PO SCH (10:23)
[2017-11-29] MEDS: CEFEPIME HCL/D5W 1 GM/50 ML BAG IVPB SCH (10:24)
[2017-11-29] MEDS: ABACAVIR SULFATE 300 MG TABLET PO SCH (10:30)
[2017-11-29] MEDS: lamiVUDine 150 MG TABLET PO SCH (10:31)
[2017-11-29] MEDS: RITONAVIR 100 MG TABLET PO SCH (10:32)
[2017-11-29] MEDS: MAGNESIUM CL 64 MG TABLET.SA PO SCH (10:33)
--- NOTE | 2017-11-29 11:16 | PN ---
Progress Note (short form) - Note Progress Note: ID Vancomycin and Cefepime Metronidazole Microbiology 11/26/17 00:02 Toe - Right Hallux Gram Stain - Final 11/26/17 00:02 Toe - Right Hallux Wound Culture - Preliminary Alcaligenes Species Mr S Aureus Enterococcus Faecalis Pending Organism#2 Diphtheroid/Corynebacterium Laboratory Tests 11/25/17 11/27/17 11/28/17 15:29 09:10 07:19 WBC 2.7 L Hgb 10.0 L Hct 29.3 L Plt Count 152 ESR 88 H BUN Creatinine Creat Clearance w eGFR Random Vancomycin 11.85 11/28/17 07:19 WBC Hgb Hct Plt Count ESR BUN 66 H Creatinine 3.2 H Creat Clearance w eGFR 19.59 Random Vancomycin Selected Entries 11/29/17 05:42 Temperature 97.7 F Pulse Rate 76 Respiratory 18 Rate Blood Pressure 135/65 Assessmnet Chronic osteomyelitis foot Plan Going to be difficult to dose Vanco here on a standing basis so going to try 500mg daily to see if this is ok to achieve level 10-15. The overall prognosis remains poor and am afraid eventually he may need amputation given his compliance. For now check trough level in 3 days. IF to high Vanco 500mg q 48 hours along with Cefepime and anatoly Portillo MD
[2017-11-29] MEDS: COLLAGENASE CLOSTRIDIUM HIST. 30 GRAMS TUBE TP SCH (12:27)
[2017-11-29] MEDS: VANCOMYCIN 500 MG in DEXTROSE 5%-WATER 100 ML IVPB SCH (12:28)
--- NOTE | 2017-11-29 14:39 | DS ---
Physical Exam: SUBJECTIVE: Patient seen and examined OBJECTIVE: Vital Signs Period Temp Pulse Resp BP Sys/Pearl Pulse Ox Last 24 Hr 97.7 F-98.2 F 57-76 18-20 111-135/57-75 97-97 PHYSICAL EXAM GENERAL: The patient is awake, alert, and fully oriented, in no acute distress. HEAD: Normal with no signs of trauma. EYES: PERRL, extraocular movements intact, sclera anicteric, conjunctiva clear. ENT: Ears normal, nares patent, oropharynx clear without exudates, moist mucous membranes. NECK: Trachea midline, full range of motion, supple. LUNGS: Breath sounds equal, clear to auscultation bilaterally, no wheezes, no crackles, no accessory muscle use. HEART: Regular rate and rhythm, S1, S2 without murmur, rub or gallop. ABDOMEN: Soft, nontender, nondistended, normoactive bowel sounds, no guarding, no rebound, no hepatosplenomegaly, no masses. EXTREMITIES: 2+ pulses, warm, well-perfused, no edema. NEUROLOGICAL: Cranial nerves II through XII grossly intact. Normal speech, gait not observed. PSYCH: Normal mood, normal affect. SKIN: Warm, dry, normal turgor, no rashes or lesions noted. LABS Laboratory Results - last 24 hr 11/28/17 11/28/17 11/29/17 15:51 21:46 05:36 POC Glucometer 136 89 85 11/29/17 11:10 POC Glucometer 105 HOSPITAL COURSE: Date of Admission:11/25/17 Date of Discharge: 11/29/17 Minutes to complete discharge: 35 Discharge Summary Reason For Visit: ULCER OF TOE Current Active Problems Elevated serum creatinine (Acute) Condition: Fair - Instructions - Home Medications Comprehensive Discharge Medication List: Ambulatory Orders Methadone HCl 80 mg PO DAILY 10/30/15 Abacavir Sulfate/Lamivudine [Epzicom Tablet] 1 tablet PO DAILY #30 tablet Albuterol Sulfate Inhaler - [Ventolin HFA Inhaler -] 1 - 2 inh PO QID #1 inhaler 09/10/17 Atenolol [Tenormin] 25 mg PO DAILY #30 tablet 09/10/17 Darunavir Ethanolate [Prezista] 800 mg PO HS #30 tablet 09/10/17 Furosemide [Lasix -] 1 tab PO BID #60 tab 09/10/17 Magnesium Chloride [Slow-Mag -] 1 tab PO DAILY #30 tablet.sa 09/10/17 Multivitamins [Multivit ([facility] Formul[facility])] 1 tab PO DAILY #30 tab 09/10/17 Nifedipine [Procardia Xl] 30 mg PO DAILY #30 tab.er.24 09/10/17 Ritonavir [Norvir -] 100 mg PO DAILY #30 tab 09/10/17
--- NOTE | 2017-11-29 17:23 | PN ---
Progress Note (short form) - Note Progress Note: Renal follow up for SIMONE on CKD Pt seen and examined at the bedside awake and alert no acute complaints making urine Vital Signs Temperature 97.7 F 11/29/17 13:36 Pulse Rate 60 11/29/17 13:36 Respiratory Rate 20 11/29/17 13:36 Blood Pressure 115/74 11/29/17 13:36 O2 Sat by Pulse Oximetry (%) 97 11/29/17 09:00 Intake & Output 11/26/17 11/27/17 11/28/17 11/29/17 23:59 23:59 23:59 23:59 Intake Total 2920 440 3100 1300 Output Total 400 1400 1200 1000 Balance 2520 -960 1900 300 Weight 96 kg NAD MMM No JVD RRR CTA 1+ LE edema CBC, BMP 11/28/17 07:19 11/28/17 07:19 Current Medications Abacavir Sulfate (Ziagen -) 600 mg PO DAILY [facility] Last Admin: 11/29/17 10:30 Dose: 600 mg Albuterol Sulfate (Ventolin 0.083% Nebulizer Soln -) 1 amp NEB Q6H PRN PRN Reason: SHORT OF BREATH/WHEEZING Atenolol (Tenormin -) 25 mg PO DAILY [facility] Last Admin: 11/29/17 10:23 Dose: 25 mg Collagenase (Santyl -) 1 applic TP DAILY [facility]; Protocol Last Admin: 11/29/17 12:27 Dose: 1 appful Darunavir (Prezista -) 800 mg PO HS [facility] Last Admin: 11/28/17 21:43 Dose: 800 mg Heparin Sodium (Porcine) (Heparin -) 5,000 unit SQ TID [facility] Last Admin: 11/29/17 15:27 Dose: 5,000 unit Cefepime HCl (Maxipime 1 Gm Premix Ivpb) 1 gm in 50 mls @ 100 mls/hr IVPB DAILY [facility]; Protocol Last Admin: 11/29/17 10:24 Dose: 100 mls/hr Vancomycin HCl 500 mg/ (Dextrose) 100 mls @ 100 mls/hr IVPB DAILY@1100 [facility] Last Admin: 11/29/17 12:28 Dose: 100 mls/hr Insulin Aspart (Novolog Vial Sliding Scale -) 1 vial SQ ACHS [facility]; Protocol Last Admin: 11/29/17 16:47 Dose: Not Given Lamivudine (Epivir -) 150 mg PO DAILY [facility] Last Admin: 11/29/17 10:31 Dose: 150 mg Magnesium Chloride (Slow-Mag -) 64 mg PO DAILY [facility] Last Admin: 11/29/17 10:33 Dose: 64 mg Methadone HCl 40 mg/ Methadone (HCl 30 mg) 70 mg PO DAILY@0600 [facility] Last Admin: 11/29/17 05:30 Dose: 70 mg Metronidazole (Flagyl -) 500 mg PO TID [facility] Last Admin: 11/29/17 15:27 Dose: 500 mg Multivitamins/Minerals/Vitamin C (Tab-A-Vit -) 1 tab PO DAILY [facility] Last Admin: 11/29/17 10:23 Dose: 1 tab Nicotine (Nicoderm Patch -) 7 mg TD DAILY [facility] Last Admin: 11/29/17 10:23 Dose: 7 mg Nifedipine (Procardia Xl -) 30 mg PO DAILY [facility] Last Admin: 11/29/17 10:23 Dose: 30 mg Ritonavir (Norvir -) 100 mg PO DAILY [facility] Last Admin: 11/29/17 10:32 Dose: 100 mg 67 year old AA gentleman with PMhx of HIV, IV drug abuse, Hypertension, CKD stage 4 presnted with LE wound and SIMONE #SIMONE secondary to renal hypoprofusion in setting of diuretics/infection, now imporved #Osteomylitis #HIV #Anemia Renal function now improved to near baseline off IVF can resume diuretics on discharge with close monitoring of renal function Abx as per ID Thank you Gabe Rodriguez DO
[2017-11-29] MEDS: DARUNAVIR ETHANOLATE 800 MG TAB PO SCH (22:00)
--- NOTE | 2017-11-29 22:39 | PN ---
Physical Exam: SUBJECTIVE: Patient seen and examined sitting on edge of bed. OBJECTIVE: Vital Signs Period Temp Pulse Resp BP Sys/Pearl Pulse Ox Last 24 Hr 97.5 F-98.8 F 60-76 18-20 111-135/57-74 97 GENERAL: The patient is awake, alert, and fully oriented, in no acute distress. LUNGS: Right subclavian TLC; breath sounds equal, clear to auscultation bilaterally, no wheezes, no crackles, no accessory muscle use. HEART: Regular rate and rhythm, S1, S2 ABDOMEN: Soft, nontender, nondistended EXTREMITIES: b/l 1+ leg edema; right great toe ulcer with exposed tendon, dry, dessicated wound NEUROLOGICAL: Cranial nerves II through XII grossly intact. PSYCH: Normal mood, normal affect. SKIN: Warm, dry, normal turgor, no rashes or lesions noted CBCD WBC 2.7 K/mm3 (4.0-10.0) L 11/28/17 07:19 RBC 3.03 M/mm3 (4.00-5.60) L 11/28/17 07:19 Hgb 10.0 GM/dL (11.7-16.9) L 11/28/17 07:19 Hct 29.3 % (35.4-49) L 11/28/17 07:19 MCV 96.6 fl (80-96) H 11/28/17 07:19 MCHC 34.1 g/dl (32.0-35.9) 11/28/17 07:19 RDW 15.0 % (11.9-15.9) 11/28/17 07:19 Plt Count 152 K/MM3 (134-434) 11/28/17 07:19 MPV 10.1 fl (7.5-11.1) 11/28/17 07:19 CMP Sodium 140 mmol/L (136-145) 11/28/17 07:19 Potassium 4.6 mmol/L (3.5-5.1) 11/28/17 07:19 Chloride 107 mmol/L (98-107) 11/28/17 07:19 Carbon Dioxide 26 mmol/L (21-32) 11/28/17 07:19 Anion Gap 7 (8-16) L 11/28/17 07:19 BUN 66 mg/dL (7-18) H 11/28/17 07:19 Creatinine 3.2 mg/dL (0.7-1.3) H 11/28/17 07:19 Creat Clearance w eGFR 19.59 (>60) 11/28/17 07:19 Calcium 8.2 mg/dL (8.5-10.1) L 11/28/17 07:19 Total Bilirubin 0.2 mg/dL (0.2-1.0) 11/28/17 07:19 AST 88 U/L (15-37) H 11/28/17 07:19 ALT 39 U/L (12-78) D 11/28/17 07:19 Alkaline Phosphatase 44 U/L (45-117) L 11/28/17 07:19 Total Protein 6.9 g/dl (6.4-8.2) 11/28/17 07:19 Albumin 2.8 g/dl (3.4-5.0) L 11/28/17 07:19 Active Medications Generic Name Dose Route Start Last Admin Trade Name [place]ibrado PRN Reason Stop Dose Admin Abacavir Sulfate 600 mg 11/26/17 10:00 11/29/17 10:30 Ziagen - PO 600 mg DAILY [facility] Administration Albuterol Sulfate 1 amp 11/25/17 23:37 Ventolin 0.083% Nebulizer Soln - NEB Q6H PRN SHORT OF BREATH/WHEEZING Atenolol 25 mg 11/26/17 10:00 11/29/17 10:23 Tenormin - PO 25 mg DAILY [facility] Administration Collagenase 1 applic 11/27/17 10:00 11/29/17 12:27 Santyl - TP 1 appful DAILY [facility] Administration Protocol Darunavir 800 mg 11/26/17 22:00 11/29/17 22:00 Prezista - PO 800 mg HS [facility] Administration Heparin Sodium (Porcine) 5,000 unit 11/26/17 06:00 11/29/17 22:00 Heparin - SQ 5,000 unit TID [facility] Administration Cefepime HCl 1 gm in 50 mls @ 100 mls/hr 11/26/17 14:00 11/29/17 10:24 Maxipime 1 Gm Premix Ivpb IVPB 100 mls/hr DAILY [facility] Administration Protocol Vancomycin HCl 500 mg/ 100 mls @ 100 mls/hr 11/29/17 11:15 11/29/17 12:28 Dextrose IVPB 100 mls/hr DAILY@1100 [facility] Administration Insulin Aspart 1 vial 11/27/17 23:00 11/29/17 22:04 Novolog Vial Sliding Scale - SQ Not Given ACHS [facility] Protocol Lamivudine 150 mg 11/27/17 10:00 11/29/17 10:31 Epivir - PO 150 mg DAILY [facility] Administration Magnesium Chloride 64 mg 11/26/17 10:00 11/29/17 10:33 Slow-Mag - PO 64 mg DAILY [facility] Administration Methadone HCl 40 mg/ Methadone 70 mg 11/26/17 09:15 11/29/17 05:30 HCl 30 mg PO 70 mg DAILY@0600 [facility] Administration Metronidazole 500 mg 11/26/17 14:00 11/29/17 21:59 Flagyl - PO 500 mg TID [facility] Administration Multivitamins/Minerals/Vitamin C 1 tab 11/26/17 10:00 11/29/17 10:23 Tab-A-Vit - PO 1 tab DAILY [facility] Administration Nicotine 7 mg 11/26/17 10:00 11/29/17 10:23 Nicoderm Patch - TD 7 mg DAILY [facility] Administration Nifedipine 30 mg 11/26/17 10:00 11/29/17 10:23 Procardia Xl - PO 30 mg DAILY [facility] Administration Ritonavir 100 mg 11/26/17 10:00 11/29/17 10:32 Norvir - PO 100 mg DAILY [facility] Administration ASSESSMENT/PLAN 67 year-old male with a PMH significant for HTN, HLD, HIV, IVDA (heroin, on methadone), CKD, asthma, and chronic right great toe osteomyelitis, discharged from [facility] on 11/18 to SNF for long-term antibiotic therapy. Patient left SNF with TLC in place. Patient returned to ED for treatment. Right great toe osteomyelitis --IR removed tunnel cath placed during previous admission --afebrile; leukopenic but this is chronic --continue antibiotic regimen from previous discharge: Cefepime 1g daily, Vanc 1g q48h dosed by trough @15, metronidazole PO 500mg TID x 14 days --weekly esr, crp --ID following CKD --Cr 5.7 on admission, now 3.2 which is baseline HIV --continue HAART meds Asthma --albuterol nebs PRN Methadone dependency --70mg daily Hypertension --continue atenolol DVT prophylaxis: subq heparin Dispo: continues to require inpatient care. Will need to arrange for patient to be seen daily in Infusion Center on 7th floor. Need insurance approval. Full code. Visit type - Emergency Visit Emergency Visit: Yes ED Registration Date: 11/25/17 Care time: The patient presented to the Emergency Department on the above date and was hospitalized for further evaluation of their emergent condition. - New Patient This patient is new to me today: No - Critical Care Critical Care patient: No
[2017-11-30] MEDS ORDERED: METHADONE HCL 40 MG DISPERSABLE TABLET ONE (05:21)
[2017-11-30] MEDS ORDERED: METHADONE HCL 10 MG TABLET ONE (05:21)
[2017-11-30] MEDS: METHADONE 40 MG, METHADONE 30 MG PO SCH (05:32)
[2017-11-30] MEDS: metroNIDAZOLE 250 MG TABLET PO SCH ×2 (05:33→14:09)
[2017-11-30] MEDS: HEPARIN NA (PORCINE) 5,000 UNITS/ML 1ML VIAL SQ SCH ×2 (05:35→14:09)
[2017-11-30] MEDS: INSULIN SLIDING SCALE (NOVOLOG) 1 VIAL SQ SCH ×2 (06:06→11:45)
--- NOTE | 2017-11-30 09:56 | PN ---
Physical Exam: SUBJECTIVE: Patient seen and examined. OBJECTIVE: Vital Signs Period Temp Pulse Resp BP Sys/Pearl Pulse Ox Last 24 Hr 97.5 F-98.8 F 60-66 18-20 115-128/64-74 97 GENERAL: The patient is awake, alert, and fully oriented, in no acute distress. LUNGS: Right subclavian TLC; breath sounds equal, clear to auscultation bilaterally, no wheezes, no crackles, no accessory muscle use. HEART: Regular rate and rhythm, S1, S2 ABDOMEN: Soft, nontender, nondistended EXTREMITIES: b/l 1+ leg edema; right great toe ulcer with exposed tendon, dry, dessicated wound NEUROLOGICAL: Cranial nerves II through XII grossly intact. PSYCH: Normal mood, normal affect. SKIN: Warm, dry, normal turgor, no rashes or lesions noted Laboratory Results - last 24 hr 11/29/17 11/29/17 11/30/17 11:10 22:03 05:32 POC Glucometer 105 126 79 Active Medications Generic Name Dose Route Start Last Admin Trade Name Freq PRN Reason Stop Dose Admin Abacavir Sulfate 600 mg 11/26/17 10:00 11/29/17 10:30 Ziagen - PO 600 mg DAILY THOMAS Administration Albuterol Sulfate 1 amp 11/25/17 23:37 Ventolin 0.083% Nebulizer Soln - NEB Q6H PRN SHORT OF BREATH/WHEEZING Atenolol 25 mg 11/26/17 10:00 11/29/17 10:23 Tenormin - PO 25 mg DAILY THOMAS Administration Collagenase 1 applic 11/27/17 10:00 11/29/17 12:27 Santyl - TP 1 appful DAILY THOMAS Administration Protocol Darunavir 800 mg 11/26/17 22:00 11/29/17 22:00 Prezista - PO 800 mg HS THOMAS Administration Heparin Sodium (Porcine) 5,000 unit 11/26/17 06:00 11/30/17 05:35 Heparin - SQ 5,000 unit TID THOMAS Administration Cefepime HCl 1 gm in 50 mls @ 100 mls/hr 11/26/17 14:00 11/29/17 10:24 Maxipime 1 Gm Premix Ivpb IVPB 100 mls/hr DAILY THOMAS Administration Protocol Vancomycin HCl 500 mg/ 100 mls @ 100 mls/hr 11/29/17 11:15 11/29/17 12:28 Dextrose IVPB 100 mls/hr DAILY@1100 THOMAS Administration Insulin Aspart 1 vial 11/27/17 23:00 11/30/17 06:06 Novolog Vial Sliding Scale - SQ Not Given ACHS [facility] Protocol Lamivudine 150 mg 11/27/17 10:00 11/29/17 10:31 Epivir - PO 150 mg DAILY THOMAS Administration Magnesium Chloride 64 mg 11/26/17 10:00 11/29/17 10:33 Slow-Mag - PO 64 mg DAILY THOMAS Administration Methadone HCl 40 mg/ Methadone 70 mg 11/26/17 09:15 11/30/17 05:32 HCl 30 mg PO 70 mg DAILY@0600 THOMAS Administration Metronidazole 500 mg 11/26/17 14:00 11/30/17 05:33 Flagyl - PO 500 mg TID THOMAS Administration Multivitamins/Minerals/Vitamin C 1 tab 11/26/17 10:00 11/29/17 10:23 Tab-A-Vit - PO 1 tab DAILY THOMAS Administration Nicotine 7 mg 11/26/17 10:00 11/29/17 10:23 Nicoderm Patch - TD 7 mg DAILY THOMAS Administration Nifedipine 30 mg 11/26/17 10:00 11/29/17 10:23 Procardia Xl - PO 30 mg DAILY THOMAS Administration Ritonavir 100 mg 11/26/17 10:00 11/29/17 10:32 Norvir - PO 100 mg DAILY THOMAS Administration ASSESSMENT/PLAN 67 year-old male with a PMH significant for HTN, HLD, HIV, IVDA (heroin), methadone dependency, CKD, asthma, and chronic right great toe osteomyelitis, discharged from [facility] on 11/18 to SNF for long-term antibiotic therapy. Patient left SNF with TLC in place. Patient returned to ED for treatment. Right great toe osteomyelitis --IR removed tunnel cath placed during previous admission --afebrile; leukopenic but this is chronic --continue antibiotic regimen from previous discharge: Cefepime 1g daily, Vanc 1g q48h dosed by trough @15, metronidazole PO 500mg TID x 14 days --weekly esr, crp --ID following CKD --Cr 5.7 on admission, now 3.2 which is baseline HIV --continue HAART meds Asthma --albuterol nebs PRN Methadone dependency --70mg daily Hypertension --continue atenolol DVT prophylaxis: subq heparin Dispo: Patient was hospitalized from 11/08 to 11/18/17 for right great toe osteomyeltitis. He was discharged to a SNF with a subclavian tunneled-catheter in order to receive alf antibiotic therapy. The patient signed out AMA from the SNF. He is a known IVDU of heroin. He remained unsupervised, in the community, with the tunneled-catheter until 11/25/17 when he returned to the ED. The SNF did not notify this hospital of the patient's status. The police were not notified. This was extremely dangerous for the patient. The patient has demonstrated non-compliance with medical direction. He cannot be released to any facility with an indwelling catheter. The only way for him to receive the IV antibiotic therapy he requires is for him to come daily to the infusion center, have a peripheral line placed, and be administered his daily dose of medications. He will remain under medical supervision under the peripheral line is removed. This process will be repeated for 35 days until treatment is complete. Visit type - Emergency Visit Emergency Visit: Yes ED Registration Date: 11/25/17 Care time: The patient presented to the Emergency Department on the above date and was hospitalized for further evaluation of their emergent condition. - New Patient This patient is new to me today: No - Critical Care Critical Care patient: No
[2017-11-30] MEDS: CEFEPIME HCL/D5W 1 GM/50 ML BAG IVPB SCH (10:21)
[2017-11-30] MEDS: NICOTINE 7 MG/24 HOURS TOPICAL PATCH TD SCH (10:23)
[2017-11-30] MEDS: NIFEdipine E.R. 30 MG TABLET (FP) PO SCH (10:24)
[2017-11-30] MEDS: ATENOLOL 25 MG TABLET (FP) PO SCH (10:24)
[2017-11-30] MEDS: MULTIVITAMINS (DAILY MVI) TABLET (FP) PO SCH (10:24)
[2017-11-30] MEDS: ABACAVIR SULFATE 300 MG TABLET PO SCH (10:25)
[2017-11-30] MEDS: lamiVUDine 150 MG TABLET PO SCH (10:25)
[2017-11-30] MEDS: MAGNESIUM CL 64 MG TABLET.SA PO SCH (10:25)
[2017-11-30] MEDS: RITONAVIR 100 MG TABLET PO SCH (10:25)
[2017-11-30] MEDS: COLLAGENASE CLOSTRIDIUM HIST. 30 GRAMS TUBE TP SCH ×2 (10:26→10:33)
[2017-11-30] MEDS: VANCOMYCIN 500 MG in DEXTROSE 5%-WATER 100 ML IVPB SCH (11:35)
[2017-11-30 13:59] VITALS: BP 130/80; PULSE 64; TEMP 97.7
--- NOTE | 2017-11-30 14:54 | DS ---
Physical Exam: SUBJECTIVE: Patient seen and examined OBJECTIVE: Vital Signs Period Temp Pulse Resp BP Sys/Pearl Pulse Ox Last 24 Hr 97.5 F-98.8 F 64-78 20-20 116-130/64-80 96-97 PHYSICAL EXAM GENERAL: The patient is awake, alert, and fully oriented, in no acute distress. HEAD: Normal with no signs of trauma. EYES: PERRL, extraocular movements intact, sclera anicteric, conjunctiva clear. ENT: Ears normal, nares patent, oropharynx clear without exudates, moist mucous membranes. NECK: Trachea midline, full range of motion, supple. LUNGS: Breath sounds equal, clear to auscultation bilaterally, no wheezes, no crackles, no accessory muscle use. HEART: Regular rate and rhythm, S1, S2 without murmur, rub or gallop. ABDOMEN: Soft, nontender, nondistended, normoactive bowel sounds, no guarding, no rebound, no hepatosplenomegaly, no masses. EXTREMITIES: 2+ pulses, warm, well-perfused, no edema. NEUROLOGICAL: Cranial nerves II through XII grossly intact. Normal speech, gait not observed. PSYCH: Normal mood, normal affect. SKIN: Warm, dry, normal turgor, no rashes or lesions noted. LABS Laboratory Results - last 24 hr 11/29/17 11/30/17 11/30/17 22:03 05:32 11:38 POC Glucometer 126 79 116 HOSPITAL COURSE: Date of Admission:11/25/17 Date of Discharge: 11/30/17 Minutes to complete discharge: 35 Discharge Summary Reason For Visit: ULCER OF TOE Current Active Problems Elevated serum creatinine (Acute) Condition: Improved - Instructions Diet, Activity, Other Instructions: Arrangements have been made for you to receive daily IV antibiotic infusion therapy at [facility] tomorrow, November 30. You will be given instructions on where and when to go. You will need 35 treatment sessions. In addition, a prescription has been sent to your pharmacy for metronidazole, on oral antibiotic. Take this medication as directed for 11 days. Referrals: Florencio Portillo MD [Staff Physician] - Disposition: HOME - Home Medications Comprehensive Discharge Medication List: Ambulatory Orders Methadone HCl 80 mg PO DAILY 10/30/15 Abacavir Sulfate/Lamivudine [Epzicom Tablet] 1 tablet PO DAILY #30 tablet Albuterol Sulfate Inhaler - [Ventolin HFA Inhaler -] 1 - 2 inh PO QID #1 inhaler 09/10/17 Atenolol [Tenormin] 25 mg PO DAILY #30 tablet 09/10/17 Darunavir Ethanolate [Prezista] 800 mg PO HS #30 tablet 09/10/17 Furosemide [Lasix -] 1 tab PO BID #60 tab 09/10/17 Magnesium Chloride [Slow-Mag -] 1 tab PO DAILY #30 tablet.sa 09/10/17 Multivitamins [Multivit ([facility] Formulary)] 1 tab PO DAILY #30 tab 09/10/17 Nifedipine [Procardia Xl] 30 mg PO DAILY #30 tab.er.24 09/10/17 Ritonavir [Norvir -] 100 mg PO DAILY #30 tab 09/10/17 Metronidazole 500 mg PO TID #33 tablet 11/29/17
== END 2017-11-30 16:30 | disposition home or self-care (01) | DRG 344 ==
LOC: JER 13:58 → JERBED 16:49 → J7W 23:34
PROVIDERS: ADMIT Hospitalist; ATTEND Nurse Practitioner Acute Care
PROC: 05PYX3Z Removal of Infusion Device from Upper Vein, External Approach (ICD-10-PCS; principal; 2017-11-26)
DX: M86.671 Other chronic osteomyelitis, right ankle and foot (principal); Z21 Asymptomatic human immunodeficiency virus [HIV] infection status; J45.909 Unspecified asthma, uncomplicated; Z79.891 Long term (current) use of opiate analgesic; N18.4 Chronic kidney disease, stage 4 (severe); F17.210 Nicotine dependence, cigarettes, uncomplicated; D72.819 Decreased white blood cell count, unspecified; F11.11 Opioid abuse, in remission; E86.0 Dehydration; R80.9 Proteinuria, unspecified; N17.9 Acute kidney failure, unspecified; E88.09 Other disorders of plasma-protein metabolism, not elsewhere classified; D64.9 Anemia, unspecified; Z91.14 Patient's other noncompliance with medication regimen; I12.9 Hypertensive chronic kidney disease with stage 1 through stage 4 chronic kidney disease, or unspecified chronic kidney disease; E87.5 Hyperkalemia
CPT/HCPCS: 36415; 36589; 73630-TC-RT-FY; 76775-TC; 76856-TC; 80048; 80053; 80076; 80307; 81003; 81015; 82436; 82570; 82728; 82962; 83540; 83550; 83735; 84100; 84133; 84156; 84300; 84540; 85025; 85044; 85651; 86140; 87040; 87070; 87077; 87086; 87186; 87205; 93005; 93010; 93306-TC; 99284-25; G0480; J1644; J7030

== ENCOUNTER 2017-12-01 11:57 | Day surgery (SDC) | payer OTHER ==
[2017-12-01 12:45] LABS: HEMATOCRIT 32.7 % (35.4-49); HEMOGLOBIN 10.7 GM/dL (11.7-16.9); MCH 31.5 pg (25.7-33.7); MCHC 32.6 g/dl (32.0-35.9); MEAN CELL VOLUME 96.5 fl (80-96); MEAN PLT VOLUME 9.7 fl (7.5-11.1); PLATELET COUNT 173 K/MM3 (134-434); RBC 3.39 M/mm3 (4.00-5.60); RDW 14.8 % (11.9-15.9); WHITE BLOOD COUNT 3.5 K/mm3 (4.0-10.0)
[2017-12-01] MEDS ORDERED: CEFEPIME 1 GM in DEXTROSE 5%-WATER - 100 ML IVPB ONE (13:00)
[2017-12-01] MEDS ORDERED: VANCOMYCIN 500 MG in DEXTROSE 5%-WATER - 100 ML IVPB ONE (13:00)
[2017-12-01 15:34] VITALS: PULSE 68; TEMP 98.3
[2017-12-01 15:36] VITALS: BP 134/70
== END 2017-12-01 14:50 | disposition home or self-care (01) ==
LOC: JINFUSION 11:57
PROVIDERS: ATTEND Internal Medicine
DX: M86.171 Other acute osteomyelitis, right ankle and foot (principal)
CPT/HCPCS: 36415; 85027; 86140; 96366; 96367

== ENCOUNTER 2017-12-03 12:56 | Day surgery (SDC) | payer OTHER ==
[2017-12-03] MEDS ORDERED: VANCOMYCIN 500 MG in DEXTROSE 5%-WATER - 100 ML IVPB ONE (13:00)
[2017-12-03] MEDS: CEFEPIME HCL/D5W 1 GM/50 ML BAG IVPB ONE ×2 (14:00→14:24)
[2017-12-03 14:23] VITALS: TEMP 98.1
[2017-12-03 16:05] VITALS: BP 147/93; PULSE 52
== END 2017-12-03 15:55 | disposition home or self-care (01) ==
LOC: JINFUSION 12:56
PROVIDERS: ATTEND Internal Medicine
PROC: 3E033GC Introduction of Other Therapeutic Substance into Peripheral Vein, Percutaneous Approach (ICD-10-PCS; principal; 2017-12-03)
DX: M86.171 Other acute osteomyelitis, right ankle and foot (principal)
CPT/HCPCS: 96365; 96366; 96367; G0480

== ENCOUNTER 2017-12-04 12:08 | Day surgery (SDC) | payer OTHER ==
[2017-12-04] MEDS ORDERED: CEFEPIME 1 GM in DEXTROSE 5%-WATER - 100 ML IVPB ONE (13:15)
[2017-12-04] MEDS ORDERED: CEFEPIME HCL/D5W 1 GM/50 ML PREMIX BAG IVPB ONE (13:15)
[2017-12-04] MEDS ORDERED: VANCOMYCIN 500 MG in DEXTROSE 5%-WATER - 100 ML IVPB ONE (13:15)
[2017-12-04 15:19] VITALS: BP 125/73; PULSE 59; TEMP 98.2
== END 2017-12-04 14:30 | disposition home or self-care (01) ==
LOC: JINFUSION 12:08 → J7W 12:10 → JINFUSION 14:30
PROVIDERS: ATTEND Internal Medicine
DX: M86.171 Other acute osteomyelitis, right ankle and foot (principal)
CPT/HCPCS: 96365

== ENCOUNTER 2017-12-05 11:07 | Day surgery (SDC) | payer OTHER ==
[2017-12-05 11:38] VITALS: TEMP 98.5
[2017-12-05 12:25] LABS: HEMATOCRIT 32.5 % (35.4-49); HEMOGLOBIN 10.9 GM/dL (11.7-16.9); MCH 32.1 pg (25.7-33.7); MCHC 33.6 g/dl (32.0-35.9); MEAN CELL VOLUME 95.4 fl (80-96); MEAN PLT VOLUME 9.9 fl (7.5-11.1); PLATELET COUNT 165 K/MM3 (134-434); RBC 3.41 M/mm3 (4.00-5.60); RDW 14.7 % (11.9-15.9); WHITE BLOOD COUNT 3.4 K/mm3 (4.0-10.0)
[2017-12-05] MEDS ORDERED: CEFEPIME HCL/D5W 1 GM/50 ML PREMIX BAG IVPB ONE (12:30)
[2017-12-05] MEDS ORDERED: VANCOMYCIN 500 MG in DEXTROSE 5%-WATER - 100 ML IVPB ONE (12:45)
[2017-12-05 12:51] LABS: ALBUMIN 3.3 g/dl (3.4-5.0); ALK PHOS 47 U/L (45-117); ANION GAP 8 (8-16); BILIRUBIN,TOTAL 0.4 mg/dL (0.2-1.0); BLOOD UREA NITROGEN 56 mg/dL (7-18); CALCIUM 8.8 mg/dL (8.5-10.1); CHLORIDE 100 mmol/L (98-107); CO2 27 mmol/L (21-32); CREATININE 3.3 mg/dL (0.7-1.3); GLUCOSE,RANDOM 127 mg/dL (74-106); POTASSIUM 4.9 mmol/L (3.5-5.1); SGOT/AST 79 U/L (15-37); SGPT/ALT 39 U/L (12-78); SODIUM 135 mmol/L (136-145)
[2017-12-05 16:39] VITALS: BP 125/75; PULSE 66
== END 2017-12-05 15:28 | disposition home or self-care (01) ==
LOC: JINFUSION 11:07 → J7W 11:08 → JINFUSION 15:28
PROVIDERS: ATTEND Internal Medicine
DX: M86.171 Other acute osteomyelitis, right ankle and foot (principal)
CPT/HCPCS: 36415; 80053; 85027; 96365; 96367; G0480

== ENCOUNTER → 2017-12-07 | Day surgery (SDC) | payer OTHER ==
[~2017-12-07] MED LIST: CEFEPIME HCL/D5W 1 GM/50 ML BAG IVPB ONE; VANCOMYCIN 500 MG in DEXTROSE 5%-WATER - 100 ML IVPB ONE
[2017-12-07 15:05] VITALS: BP 117/50; PULSE 63; TEMP 98.3
== END | disposition home or self-care (01) ==
LOC: JINFUSION 12:36
PROVIDERS: ATTEND Internal Medicine
DX: M86.171 Other acute osteomyelitis, right ankle and foot (principal); Z53.8 Procedure and treatment not carried out for other reasons
CPT/HCPCS: 96365; G0480

== ENCOUNTER 2018-10-03 11:31 | Emergency (ER) | payer OTHER ==
[2018-10-03 11:50] VITALS: BP 137/82; PULSE 76; TEMP 97.4; BMI 26.1
--- NOTE | 2018-10-03 12:11 | PDOC ---
History of Present Illness - General Chief Complaint: Pain Stated Complaint: RT EDEMA Time Seen by Provider: 10/03/18 11:57 History Source: Patient Exam Limitations: No Limitations - History of Present Illness Initial Comments: 10/03/18 12:07 68 yo M with a hx of HIV (undetectable viral loads; CD4 308 03/2018) and asthma presents to the emergency department upon referral from his PMD for DVT rule out. Per the patient, he has had skin coloration changes, drying out for 1 month with a painless lump on the calf. He saw his PMD today because he notices his foot becoming colder lately. His PMD noticed a lump on the inferior portion of the gastrocnemius on the left side and wished for him to be evaluated with US. The patient denies a hx of DVT/PE. Denies hx of PAD, fevers, chills, chest pain, SOB, and back pain. He endorses having a URI with nasal congestion without the need to use his albuterol. He was recently off IV abx for wound infection on right foot 2 months ago per patient. Allergies: ASA Social: 3 cigarettes per day. Former IVDA with heroin 1 year ago. None currently 10/03/18 12:17 Past History - Past Medical History Allergies/Adverse Reactions: Allergies Allergy/AdvReac Type Severity Reaction Status Date / Time aspirin Allergy Unknown Rash Verified 10/03/18 11:46 tomatoes Allergy Mild Uncoded 10/03/18 11:46 Home Medications: Ambulatory Orders Methadone HCl 70 mg PO DAILY 10/30/15 Albuterol 0.083% Nebulizer Gayathri [Ventolin 0.083% Nebulizer Soln -] 1 neb [facility] Q4H #1 box 04/12/18 Multivitamins [Multivit ([facility] Formulary)] 1 tab PO DAILY #30 tab 04/12/18 Nifedipine [Procardia Xl] 30 mg PO DAILY #30 tab.er.24 04/12/18 Albuterol Sulfate Inhaler - [Ventolin HFA Inhaler -] 1 - 2 inh PO QID #1 inhaler 08/18/18 Atenolol [Tenormin] 1 tab PO DAILY #30 tablet 08/18/18 Darunavir Ethanolate [Prezista -] 1 tab PO DAILY #30 tablet 08/18/18 Furosemide [Lasix -] 1 tab PO BID #60 tablet 08/18/18 Magnesium Chloride [Slow-Mag -] 1 tab PO DAILY #30 tablet.sa 08/18/18 Ritonavir [Norvir -] 1 tab PO DAILY #30 tab 08/18/18 Abacavir Sulfate/Lamivudine [Abacavir-Lamivudine 600-300 mg] 1 each PO DAILY # 30 tablet 08/19/18 Nifedipine [Afeditab Cr] 30 mg PO DAILY #30 tablet.er 08/19/18 Anemia: No Asthma: Yes Cancer: No Cardiac Disorders: No CVA: No COPD: No CHF: No DVT: No Dementia: No Diabetes: No GI Disorders: No Disorders: No HTN: Yes Hypercholesterolemia: Yes Kidney Stones: No Liver Disease: No Seizures: No Thyroid Disease: No Other medical history: LOSS OF HEARING BILATERAL - Surgical History Abdominal Surgery: No Appendectomy: No Cardiac Surgery: No Cholecystectomy: No Lung Surgery: No Neurologic Surgery: No Orthopedic Surgery: Yes (Nasal fx repair ) - Reproductive History Testicular Surgery: No - Immunization History Immunization Up to Date: No - Suicide/Smoking/Psychosocial Hx Smoking Status: Yes Smoking History: Current every day smoker Have you smoked in the past 12 months: Yes Number of Cigarettes Smoked Daily: 10 Cigars Per Day: 0 Information on smoking cessation initiated: No 'Breaking Loose' booklet given: 11/25/17 Hx Alcohol Use: No Drug/Substance Use Hx: No Substance Use Type: Heroin Hx Substance Use Treatment: Yes *Physical Exam - Vital Signs Last Vital Signs Temp Pulse Resp BP Pulse Ox 97.4 F L 76 18 137/82 97 10/03/18 11:46 10/03/18 11:46 10/03/18 11:46 10/03/18 11:46 10/03/18 11:46 - Physical Exam Respiratory/Chest: positive: Decreased Breath Sounds, Wheezing. negative: Chest Tender, Respiratory Distress, Accessory Muscle Use Cardiovascular: positive: Regular Rhythm, Regular Rate, S1, S2. negative: Systolic Murmur Gastrointestinal/Abdominal: positive: Normal Bowel Sounds. negative: Tender Extremity: positive: Delayed Capillary Refill. negative: Normal Inspection ( dorsalis pedis and posterior tibialis pulsesi ntact bilaterally. darkening of skin on left leg from ankle to mid leg. no pitting edema left leg. no tenderness to palpation in calf left leg. muscle mass palpated on left calf) Medical Decision Making - Medical Decision Making 10/03/18 12:14 68 yo M with a hx of HIV (undetectable viral loads; CD4 count unknown) and asthma presents to the emergency department upon referral from his PMD for DVT rule out. Initial vitals Initial Vital Signs Temp Pulse Resp BP Pulse Ox 97.4 F L 76 18 137/82 97 10/03/18 11:46 10/03/18 11:46 10/03/18 11:46 10/03/18 11:46 10/03/18 11:46 Work up: ddx: DVT vs PAD vs varicose vein *DC/Admit/Observation/Transfer Diagnosis at time of Disposition: Leg pain Qualifiers: Laterality: right Qualified Code(s): M79.604 - Pain in right leg - Discharge Dispostion Disposition: HOME Decision to Admit order: No - Referrals Referrals: Karime Griffin [employer]LECT[employer] TECH[employer]OLOGY DEPARTMENT CHAIR [Primary Care Provider] - - Patient Instructions Additional Instructions: you were seen for the evaluation of your leg pain. no occlusion was seen in the artery and vein of the right leg. please follow up with your primary medical doctor in 1 week after discharge for follow up care and management. please return to the emergency department if you have worsening symptoms or new concerning symptoms such as fever, chills, loss of sensation or motor function in the legs, color changes, and ice cold. thank you. - Post Discharge Activity
[2018-10-03] MEDS ORDERED: ALBUTEROL SO4 2.5/IPRATROPIUM 0.5 INH SOL 3 ML VIAL.NEB. NEB ONE ×2 (12:13→12:45)
--- NOTE | 2018-10-03 18:21 | PDOC ---
Documentation entered by Callum Harp SCRIBE, acting as scribe for Danny Khan MD. Danny Khan MD: This documentation has been prepared by the Katiuska pelaez Matthew, SCRIBE, under my direction and personally reviewed by me in its entirety. I confirm that the documentation accurately reflects all work, treatment, procedures, and medical decision making performed by me. Attending Attestation - Resident Resident Name: KyrieGovind - ED Attending Attestation I have performed the following: I have examined & evaluated the patient, The case was reviewed & discussed with the resident, I agree w/resident's findings & plan, Exceptions are as noted - HPI HPI: 10/03/18 15:07 68 year old M c/ HIV CD4 ~300s sent in from pt's PMD office to r/o RLE DVT. For the last several weeks, the patient has had a "bump" on the RLE but no other symptoms. Pt spoke to his doctor who sent pt to ED. No chest pain/SOB. - Physicial Exam PE: 10/03/18 15:12 GENERAL: Awake, alert, and fully oriented, in no acute distress HEAD: No signs of trauma EYES: EOMI, sclera anicteric, conjunctiva clear ENT: Auricles normal inspection, hearing grossly normal, nares patent,. Moist mucosa NECK: Normal ROM, supple, no lymphadenopathy, JVD, or masses LUNGS: Breath sounds equal, clear to auscultation bilaterally. No wheezes, and no crackles HEART: Regular rate and rhythm, normal S1 and S2, no murmurs, rubs or gallops EXTREMITIES: Normal range of motion, no edema. No clubbing or cyanosis. No cords, erythema, or tenderness. Mildly TTP R calf but no obvious swelling. NEUROLOGICAL: Cranial nerves II through XII grossly intact. Normal speech, normal gait SKIN: Warm, Dry, normal turgor, no rashes or lesions noted. - Medical Decision Making 10/03/18 15:12 Vital Signs Temp Pulse Resp BP Pulse Ox 97.4 F L 76 18 137/82 97 10/03/18 11:46 10/03/18 11:46 10/03/18 11:46 10/03/18 11:46 10/03/18 11:46 Duplex and aterial study reviewed. No acute findings, no DVT. Some mild atheroslecrotic peripheral arterial disease but no significant stenosis. Pt informed and he will follow up as an outpatient.
== END 2018-10-03 15:06 | disposition home or self-care (01) ==
LOC: JER 11:31
PROC: 3E0F7GC Introduction of Other Therapeutic Substance into Respiratory Tract, Via Natural or Artificial Opening (ICD-10-PCS; principal; 2018-10-03)
DX: F17.210 Nicotine dependence, cigarettes, uncomplicated (principal); I10 Essential (primary) hypertension; E78.00 Pure hypercholesterolemia, unspecified; H91.90 Unspecified hearing loss, unspecified ear; J45.909 Unspecified asthma, uncomplicated
CPT/HCPCS: 93926-TC; 93971-TC; 99281-25

== ENCOUNTER 2020-03-25 12:09 | Emergency (ER) | payer OTHER ==
[2020-03-25 12:25] VITALS: TEMP 97.6; BMI 27.3
--- NOTE | 2020-03-25 12:40 | PDOC ---
Rapid Medical Evaluation Chief Complaint: Shortness of Breath Time Seen by Provider: 03/25/20 12:36 Medical Evaluation: Allergies Allergy/AdvReac Type Severity Reaction Status Date / Time aspirin Allergy Unknown Rash Verified 03/25/20 12:19 tomatoes Allergy Mild Uncoded 03/25/20 12:19 Vital Signs Temp Pulse Resp BP Pulse Ox 97.6 F 66 24 H 196/98 H 98 03/25/20 12:19 03/25/20 12:19 03/25/20 12:19 03/25/20 12:19 03/25/20 12:19 03/25/20 12:38 CC: SOB, leg swelling, TAkes lasix, No fever, HIV+ Exam: slightly tachypneic, lcta Steiner: labs, iv, cxr, ekg Discharge Disposition - Diagnosis Shortness of breath - Discharge Dispostion Last Admission D/C Date: 11/30/17 - Referrals Referrals: Karime Griffin, PREVENTION COORDINATOR [Primary Care Provider] - - Patient Instructions - Post Discharge Activity
--- OUTSIDE RECORDS SUMMARY | 2020-03-25 12:42 | XMS ---
:1950 Author Organization [facility] Care Team Providers Name Role Phone SALONI ALARCON MD Unavailable Unavailable [facility] Unavailable Unavailable CLARISSA Unavailable Unavailable Re-disclosure Warning The records that you are about to access may contain information from federally- assisted alcohol or drug abuse programs. If such information is present, then the following federally mandated warning applies: This information has been disclosed to you from records protected by federal confidentiality rules (42 CFR part 2). The federal rules prohibit you from making any further disclosure of this information unless further disclosure is expressly permitted by the written consent of the person to whom it pertains or as otherwise permitted by 42 CFR part 2. A general authorization for the release of medical or other information is NOT sufficient for this purpose. The Federal rules restrict any use of the information to criminally investigate or prosecute any alcohol or drug abuse patient.The records that you are about to access may contain highly sensitive health information, the redisclosure of which is protected by Article 27-F of the [facility] Public Health law. If you continue you may haveaccess to information: Regarding HIV / AIDS; Provided by facilities licensed or operated by the [facility] Office of Mental Health; or Provided by the [facility] Office for People With Developmental Disabilities. If such information is present, then the following [facility] mandated warning applies: This information has been disclosed to you from confidential records which are protected by state law. State law prohibits you from making any further disclosure of this information without the specific written consent of the person to whom it pertains, or as otherwise permitted by law. Any unauthorized further disclosure in violation of state law may result in a fine or group home sentence or both. A general authorization for the release of medical or other information is NOT sufficient authorization for further disclosure. Encounters Encounter Providers Location Date Indications Data Source(s ) Outpatient Attender: [id number] 07/11/2019 [facility] 12:23:19 PM Care Verito kolb) EST Patient admitted. Outpatient Attender: SALONI GOMES 08/15/2018 11:11:00 AM [facility] DIDIERdmitter: JELLY NETTLES - 07/26/2019 [facility] 03:35:00 PM EST Patient discharged. Insurance Providers Payer name Policy type Policy ID Covered Covered green party's Policy P samantha / Coverage green party ID relationship to [facility] ormation type rosales MEDICA[place] [id number] SP [id number] [place] [place] [id number] SP [id number] COMPLETE [place]ICAID [id number] SP [id number] [place] [id number] SP [id number] COMPLETE MEDICA[place] [id number] SP [id number] [place] [id number] SP [id number] 46 COMPLETE MEDICAID [id number] SP [id number] [employer] MED[employer] [id number] SP [id number] [facility] [place] [id number] SP [id number] [place] [id number] [id number] MEDICARE [id number] SP [id number] [facility] [id number] Self [id number] SELF PAY 0 Self 0 MEDICAID OP [id number] Self [id number] MEDICARE [id number] Self [id number] [employer] MEDICAID [id number] SP [id number] [facility] [place] [id number] SP [id number] MEDICARE [id number] SP [id number] [employer] SP MAINTENA[employer]CE PROGRAM [employer] MEDICAID [id number] SP [id number] [facility] [place] [id number] SP [id number] M [employer] [id number] MEDICAID OP [id number] Self [id number] SELF PAY 00 Self [id number]
[2020-03-25 13:54] LABS: BASO % 0.4 % (0-2.0); EOS % 1.6 % (0-4.5); HEMATOCRIT 33.9 % (35.4-49); HEMOGLOBIN 10.9 GM/dL (11.7-16.9); LYMPH % 11.7 % (8-40); MCH 32.2 pg (25.7-33.7); MCHC 32.1 g/dl (32.0-35.9); MEAN CELL VOLUME 100.3 fl (80-96); MEAN PLT VOLUME 10.3 fl (7.5-11.1); MONO % 7.9 % (3.8-10.2); NEUT % 78.4 % (42.8-82.8); PLATELET COUNT 149 K/MM3 (134-434); RBC 3.38 M/mm3 (4.00-5.60); RDW 16.3 % (11.9-15.9); WHITE BLOOD COUNT 7.3 K/mm3 (4.0-10.0)
[2020-03-25] MEDS ORDERED: FUROSEMIDE 40 MG/4 ML INJECTABLE VIAL IVPUSH ONE (13:59)
--- NOTE | 2020-03-25 13:59 | PDOC ---
History of Present Illness - General Chief Complaint: Shortness of Breath Stated Complaint: BP PROBLEM/DIFFICULTY BREATHING Time Seen by Provider: 03/25/20 12:36 - History of Present Illness Initial Comments: 03/25/20 13:46 69yo M w/ PMHx HIV, CKD, HTN, and CHF followed by the [facility] presents with shortness of breath and leg swelling x4 days. He states he is Rx with BID lasix, but he has only been taking 1x/day. He describes "water in my lungs" and SOB worsened by activity. As for the leg swelling, R>L, chronic but worse x4days. He endorses improvement today. Denies coughing, fevers, n/v/d, rashes. Past History - Medical History Allergies/Adverse Reactions: Allergies Allergy/AdvReac Type Severity Reaction Status Date / Time aspirin Allergy Unknown Rash Verified 03/25/20 12:19 tomatoes Allergy Mild Uncoded 03/25/20 12:19 Home Medications: Ambulatory Orders Methadone HCl 50 mg PO DAILY 10/30/15 Abacavir Sulfate/Lamivudine [Abacavir-Lamivudine 600-300 mg] 1 each PO DAILY #30 tablet 12/15/19 Albuterol 0.083% Nebulizer Gayathri [Ventolin 0.083% Nebulizer Soln -] 1 neb NEB Q4H #1 box 12/15/19 Albuterol Sulfate Inhaler - [Ventolin HFA Inhaler -] 1 - 2 inh PO QID #1 inhaler 12/15/19 Atenolol [Tenormin] 1 tab PO DAILY #30 tablet 12/15/19 Darunavir Ethanolate [Prezista -] 1 tab PO DAILY #30 tablet 12/15/19 Furosemide [Lasix -] 1 tab PO BID #60 tablet 12/15/19 Montelukast Sodium [Singulair] 1 tab PO HS #30 tablet 12/15/19 Multivitamins [Multivit ([facility] Form[facility])] 1 tab PO DAILY #30 tab 12/15/19 Nifedipine [Procardia Xl] 1 tab PO DAILY #30 tab.er.24 12/15/19 Ritonavir [Norvir -] 1 tab PO DAILY #30 tab 12/15/19 Blood Pressure Kit MedLarge [Blood Pressure Monitor] 1 each ASDIR #1 kit 12/27/19 Fluticasone Propionate [Flovent Diskus] 1 inh IH BID #1 disk.w.dev 02/27/20 Anemia: No Asthma: Yes Cancer: No Cardiac Disorders: No CVA: No COPD: No CHF: Yes DVT: No Dementia: No Diabetes: No GI Disorders: No Disorders: No HTN: Yes Hypercholesterolemia: Yes Kidney Stones: No Liver Disease: No Seizures: No Thyroid Disease: No - Surgical History Abdominal Surgery: No Appendectomy: No Cardiac Surgery: No Cholecystectomy: No Lung Surgery: No Neurologic Surgery: No Orthopedic Surgery: Yes (Nasal fx repair ) - Reproductive History Testicular Surgery: No - Immunization History Immunization Up to Date: No - Psycho-Social/Smoking History Smoking Status: Yes Smoking History: Current every day smoker Have you smoked in the past 12 months: Yes Number of Cigarettes Smoked Daily: 10 If you are a former smoker, when did you quit?: 1 week ago Cigars Per Day: 0 Information on smoking cessation initiated: Yes 'Breaking Loose' booklet given: 11/25/17 - Substance Abuse Hx (Audit-C & DAST Scrn) How often the patient has a drink containing alcohol: Never Score: In Men: 4 or > Positive; In Women: 3 or > Positive: 0 Screen Result (Pos requires Nsg. Audit-10AR): Negative In the last yr the pt used illegal drug/Rx for NonMed reason: No Score: Yes response is considered Positive: 0 Screen Result (Positive result requires Nsg. DAST-10): Negative Review of Systems - Review of Systems Able to Perform ROS?: Yes Constitutional: Yes: Weight Stable. No: Chills, Diaphoresis, Fever HEENTM: No: Recent change in vision, Tinnitus Respiratory: Yes: Orthopnea, Shortness of Breath. No: Cough Cardiac (ROS): No: Chest Pain, Lightheadedness, Syncope ABD/GI: No: Abdominal Distended, Constipated, Diarrhea, Nausea, Vomiting : No: Symptoms Reported Musculoskeletal: No: Muscle Pain, Muscle Weakness Integumentary: No: Rash Neurological: No: Symptoms reported Endocrine: No: Symptoms Reported Hematologic/Lymphatic: No: Symptoms Reported All Other Systems: Reviewed and Negative *Physical Exam - Vital Signs Last Vital Signs Temp Pulse Resp BP Pulse Ox 97.6 F 66 24 H 196/98 H 98 03/25/20 12:19 03/25/20 12:19 03/25/20 12:19 03/25/20 12:19 03/25/20 12:19 - Physical Exam General Appearance: Yes: Nourished, Appropriately Dressed. No: Apparent Distress HEENT: positive: EOMI, ANIL, Normal Voice Neck: positive: Trachea midline, Supple Respiratory/Chest: positive: Lungs Clear, Rapid RR, Crackles, Rales, Wheezing. negative: Respiratory Distress, Stridor, Hyperresonant Cardiovascular: positive: Regular Rhythm, Regular Rate Gastrointestinal/Abdominal: positive: Normal Bowel Sounds, Soft Musculoskeletal: positive: Normal Inspection. negative: CVA Tenderness Extremity: positive: Normal Capillary Refill, Normal Inspection, Normal Range of Motion Integumentary: positive: Normal Color, Dry, Warm Neurologic: positive: Fully Oriented, Alert, Normal Response, Motor Strength /5 ED Treatment Course - LABORATORY CBC & Chemistry Diagram: 03/25/20 13:00 03/25/20 13:00 Medical Decision Making - Medical Decision Making 03/25/20 14:59 BNP >10k. trop >0.05. Pt has rhonchi/rales -> decision to admit for CHF. Pt refusing; states he wants to lock up his belongings and come back tonight or tomorrow. Discharge - Discharge Information Problems reviewed: Yes Clinical Impression/Diagnosis: Shortness of breath Disposition: AGAINST MEDICAL ADVICE - Follow up/Referral Referrals: Karime Griffin LEAD TINNER [Primary Care Provider] - - Patient Discharge Instructions - Post Discharge Activity
[2020-03-25 14:03] LABS: INR 0.97 (0.83-1.09); PROTHROMBIN TIME (PATIENT) 11.8 SEC (9.7-13.0)
[2020-03-25 14:06] LABS: ACTIVATED PTT 22.2 SECONDS (25.2-36.5)
[2020-03-25 14:16] LABS: POTASSIUM 4.1 mmol/L (3.5-5.1)
[2020-03-25 14:17] LABS: CALCIUM 8.7 mg/dL (8.5-10.1)
[2020-03-25 14:18] LABS: BLOOD UREA NITROGEN 40.2 mg/dL (7-18)
[2020-03-25 14:22] LABS: BILIRUBIN,TOTAL 0.6 mg/dL (0.2-1); TOT PROT 6.6 g/dl (6.4-8.2)
[2020-03-25 14:27] LABS: CREATININE 2.5 mg/dL (0.55-1.3); N-TERMINAL BNP 10608.6 pg/ml (5-125)
[2020-03-25] MEDS ORDERED: FUROSEMIDE 40 MG/4 ML INJECTABLE VIAL ONE (14:43)
--- NOTE | 2020-03-25 14:44 | PDOC ---
Documentation entered by Deng Reyes SCRIBE, acting as scribe for Shemar Colin MD. Shemar Colin MD: This documentation has been prepared by the Amy pelaez Xhesika, SCRIBE, under my direction and personally reviewed by me in its entirety. I confirm that the documentation accurately reflects all work, treatment, procedures, and medical decision making performed by me. Attending Attestation - Resident Resident Name: Huber Pena - ED Attending Attestation I have performed the following: I have examined & evaluated the patient, The case was reviewed & discussed with the resident, I agree w/resident's findings & plan, Exceptions are as noted - HPI HPI: 03/25/20 13:00 69y/o M with a PMH of HIV (undetectable viral loads; CD4 308 03/2018), CHF, and asthma who presents to the emergency department for 4 days of restlessness, SOB and BLE swelling R>L. Pt states he is not complaints with his Lasix and feels like he has "water in his lungs." Pt reports SOB worse with activity and when he is laying down. Pt states his LE swelling has slightly improved. Pt does endorse dry cough, denies hemoptysis. Pt denies current CP, fever/chils, headache, dizziness. Denies fevers, chills, N/V/D. Denies frequency, urgency, dysuria and hematuria. Pt did note to another physician he had a episode of chest tightness yesterday, but currently denies it. Allergies: ASA PMD: Karime Griffin - Physicial Exam PE: 03/25/20 14:40 GENERAL: The patient is awake, alert, and fully oriented, Nontoxic - in no acute distress. HEAD: Normocephalic, atraumatic. EYES: extraocular movements intact, sclera anicteric, conjunctiva clear. ENT: Normal voice, Moist mucous membranes. NECK: Normal range of motion, supple LUNGS: no acute respiratory distress, bibazilar rales. HEART: Regular rate and rhythm, normal S1 and S2 without murmur, rub or gallop. ABDOMEN: Soft, nontender, No guarding, no rebound. No CVA tenderness EXTREMITIES: Normal range of motion, bl LE edema R>L, neg homans, no calf tenderness NEUROLOGICAL: No facial assymetry, Normal speech, PSYCH: Normal mood, normal affect. SKIN: Warm, Dry, normal turgor, - Medical Decision Making 03/25/20 14:42 likely chf labs reviewed noted for elevateb dnp cxr reviewed bedside US noted for B lines will give daniel will admit for further management 03/25/20 15:31 pt notes he wants to leave to take care of some things. had an extensive discussion with the patient regarding admitting the patient and our recommendation to stay for evaluation and treatment of his CHF, however states he has to take care of some things and he will come back for evaluation/treatment after he has that taken care of. Discussed alternatives including having his friends/family help take care of his things, but states he needs to do it. The pt is alert/oriented x 3, and I believe he understands the risks of leaving. Heart Score/ECG Review - ECG Impressions Comment:: 03/25/20 14:43 Twelve-lead EKG was performed and reviewed by me. There is normal sinus rhythm with a normal rate. rate of [address] wave changes suggestive of acute ischemia Discharge - Discharge Information Problems reviewed: No Clinical Impression/Diagnosis: Shortness of breath Condition: Stable Disposition: AGAINST MEDICAL ADVICE - Follow up/Referral Referrals: Karime Griffin SALES PROMOTION REPRESENTATIVE [Primary Care Provider] - - Patient Discharge Instructions - Post Discharge Activity
--- NOTE | 2020-03-25 15:15 | EKG ---
Test Reason : Blood Pressure : / mmHG Vent. Rate : 067 BPM Atrial Rate : 067 BPM P-R Int : 144 ms QRS Dur : 158 ms QT Int : 488 ms P-R-T Axes : 035 078 042 degrees QTc Int : 515 ms NORMAL SINUS RHYTHM WITH SINUS ARRHYTHMIA RIGHT BUNDLE BRANCH BLOCK ABNORMAL ECG WHEN COMPARED WITH ECG OF 05-APR-2019 01:41, T WAVE VARIATION Confirmed by ASHLEY SIMMS MD ([id number]) on 03/25/2020 3:15:23 PM Referred By: Confirmed By:ASHLEY SIMMS MD
[2020-03-25 15:41] VITALS: BP 195/113; PULSE 74
== END 2020-03-25 15:43 | disposition left against medical advice (07) ==
LOC: JER 12:09
PROC: 3E033GC Introduction of Other Therapeutic Substance into Peripheral Vein, Percutaneous Approach (ICD-10-PCS; principal; 2020-03-25)
DX: R06.02 Shortness of breath (principal)
CPT/HCPCS: 36415; 71045-TC-FY; 80053; 82550; 83735; 83880; 84484; 85025; 85610; 85730; 93005; 93010; 93971-TC; 99285-25

== ENCOUNTER 2021-10-07 11:15 | Inpatient (IN) | payer OTHER ==
[2021-10-07] MEDS ORDERED: methylPREDNISolone NA SUCC 125 MG/2 ML VIAL IVPB ONE (12:32)
[2021-10-07] MEDS ORDERED: ALBUTEROL SO4 2.5/IPRATROPIUM 0.5 INH SOL 3 ML VIAL.NEB. NEB ONE ×2 (12:32→12:38)
[2021-10-07] MEDS ORDERED: FUROSEMIDE 40 MG/4 ML INJECTABLE VIAL IVPUSH ONE ×2 (12:32→20:10)
[2021-10-07 12:35] LABS: HEMATOCRIT 30.8 % (35.4-49); HEMOGLOBIN 9.8 GM/dL (11.7-16.9); MCH 30.1 pg (25.7-33.7); MCHC 31.7 g/dl (32.0-35.9); MEAN PLT VOLUME 10.5 fl (7.5-11.1); PLATELET COUNT 179 10^3/uL (134-434); RBC 3.25 M/mm3 (4.00-5.60); RDW 16.9 % (11.9-15.9)
[2021-10-07] MEDS ORDERED: FUROSEMIDE 40 MG/4 ML INJECTABLE VIAL ONE ×2 (12:38→20:47)
[2021-10-07] MEDS ORDERED: methylPREDNISolone NA SUCC 125 MG/2 ML VIAL ONE (12:38)
[2021-10-07 12:56] LABS: CALCIUM 8.8 mg/dL (8.5-10.1)
[2021-10-07 12:58] LABS: ALBUMIN 3.4 g/dl (3.4-5.0); BLOOD UREA NITROGEN 74.3 mg/dL (7-18)
[2021-10-07 13:01] LABS: BILIRUBIN,TOTAL 0.6 mg/dL (0.2-1); TOT PROT 7.6 g/dl (6.4-8.2)
[2021-10-07 13:05] LABS: N-TERMINAL BNP 15629.9 pg/ml (5-125)
[2021-10-07 13:08] LABS: ANISOCYTOSIS 0; HELMET CELLS 0; HOWELL-JOLLY BODIES 0; MACROCYTOSIS 0; OVALOCYTE 0; ROULEAU 0; SICKELED CELLS 0; TARGET CELLS 0; TEAR DROP CELLS 0; TOXIC GRANULATION 0
[2021-10-07 15:56] LABS: EPI CELLS 1 /uL (0-25.1); HYALINE CASTS 0 /uL (0-3.1); URINE APPEARANCE CLEAR; URINE BACTERIA 2 /uL (0-1359); URINE BILIRUBIN NEGATIVE (NEGATIVE); URINE COLOR YELLOW; URINE GLUCOSE (UA) NEGATIVE (NEGATIVE); URINE KETONE NEGATIVE (NEGATIVE); URINE LEUK ESTERASE NEGATIVE (NEGATIVE); URINE NITRITE NEGATIVE (NEGATIVE); URINE PROTEIN 3+ (NEGATIVE); URINE RBC 2 /uL (0-23.9); URINE UROBILINOGEN 0.2 mg/dL (0.2-1.0); URINE WBC 3 /uL (0-25.8)
[2021-10-07] MEDS ORDERED: ALBUTEROL SO4 HFA INHALER IH PRN (20:09)
[2021-10-07] MEDS ORDERED: ATORVASTATIN CA 10 MG TABLET (FP) ONE ×2 (21:50→23:57)
[2021-10-07] MEDS ORDERED: MONTELUKAST NA 10 MG TABLET ONE ×2 (21:50→23:58)
[2021-10-07] MEDS ORDERED: ATORVASTATIN CA 10 MG TABLET (FP) PO SCH (22:00)
[2021-10-08] MEDS: MONTELUKAST NA 10 MG TABLET PO SCH ×2 (00:02→22:28)
[2021-10-08] MEDS ORDERED: ATENOLOL 25 MG TABLET (FP) PO SCH ×3 (04:42→10:00)
[2021-10-08] MEDS ORDERED: amLODIPine BESYLATE 5 MG TABLET (FP) PO SCH ×3 (04:42→10:00)
[2021-10-08] MEDS ORDERED: ALBUTEROL SO4 2.5/IPRATROPIUM 0.5 INH SOL 3 ML VIAL.NEB. NEB ONE (04:43)
[2021-10-08] MEDS: FUROSEMIDE 40 MG/4 ML INJECTABLE VIAL IVPUSH SCH ×2 (05:13→16:18)
[2021-10-08] MEDS ORDERED: ATORVASTATIN CA 10 MG TABLET (FP) PO SCH (09:12)
[2021-10-08] MEDS: LABETALOL HCL 200 MG TABLET (FP) PO SCH ×2 (10:27→22:28)
[2021-10-08] MEDS: amLODIPine BESYLATE 10 MG TABLET (FP) PO SCH (10:27)
[2021-10-08] MEDS: MULTIVITAMINS (DAILY MVI) TABLET (FP) PO SCH (10:27)
[2021-10-08] MEDS ORDERED: MAGNESIUM SULF 50% (8.12 MEQ/2 ML-1 GM VIAL) IVPB ONE ×2 (13:34→16:15)
[2021-10-08 14:10] LABS: SARS-CoV-2 NAA Not Detected (Not Detected)
[2021-10-08] MEDS: RITONAVIR 100 MG TABLET PO SCH (14:48)
[2021-10-08] MEDS: DARUNAVIR ETHANOLATE 800 MG TAB PO SCH (14:48)
[2021-10-08] MEDS: DOLUTEGRAVIR SODIUM 50 MG TABLET (NON-FORMULARY) PO SCH (14:48)
[2021-10-08] MEDS: ATORVASTATIN CA 20 MG TABLET (FP) PO SCH (22:28)
[2021-10-09] MEDS: FUROSEMIDE 40 MG/4 ML INJECTABLE VIAL IVPUSH SCH ×2 (06:20→16:19)
[2021-10-09 08:18] LABS: OPIATES, URI NEGATIVE (NEGATIVE); URINE BARBITURATES NEGATIVE (NEGATIVE)
[2021-10-09 08:19] LABS: PHENCYCLIDINE,URINE NEGATIVE (NEGATIVE); URINE BENZODIAZEPINES NEGATIVE (NEGATIVE)
[2021-10-09 08:22] LABS: COCAINE, UR NEGATIVE (NEGATIVE); METHADONE, UR POSITIVE (NEGATIVE); URINE AMPHETAMINES NEGATIVE (NEGATIVE)
[2021-10-09] MEDS: amLODIPine BESYLATE 10 MG TABLET (FP) PO SCH (09:43)
[2021-10-09] MEDS: DOLUTEGRAVIR SODIUM 50 MG TABLET (NON-FORMULARY) PO SCH (09:43)
[2021-10-09] MEDS: MULTIVITAMINS (DAILY MVI) TABLET (FP) PO SCH (09:43)
[2021-10-09] MEDS: RITONAVIR 100 MG TABLET PO SCH (09:43)
[2021-10-09] MEDS: DARUNAVIR ETHANOLATE 800 MG TAB PO SCH (09:43)
[2021-10-09] MEDS: LABETALOL HCL 200 MG TABLET (FP) PO SCH ×2 (09:43→21:46)
[2021-10-09] MEDS ORDERED: methaDONE HCL 10 MG TABLET PO SCH (17:00)
[2021-10-09] MEDS ORDERED: MAGNESIUM SULF 50% (8.12 MEQ/2 ML-1 GM VIAL) IVPB ONE (17:05)
[2021-10-09] MEDS ORDERED: methaDONE HCL 10 MG TABLET PO ONE (17:51)
[2021-10-09] MEDS: MONTELUKAST NA 10 MG TABLET PO SCH (21:46)
[2021-10-09] MEDS: ATORVASTATIN CA 20 MG TABLET (FP) PO SCH (21:46)
[2021-10-10] MEDS ORDERED: methaDONE HCL 40 MG DISPERSABLE TABLET ONE (05:57)
[2021-10-10] MEDS ORDERED: methaDONE HCL 10 MG TABLET ONE (05:58)
[2021-10-10] MEDS: FUROSEMIDE 40 MG/4 ML INJECTABLE VIAL IVPUSH SCH ×2 (06:06→13:09)
[2021-10-10] MEDS: amLODIPine BESYLATE 10 MG TABLET (FP) PO SCH (11:00)
[2021-10-10] MEDS: LABETALOL HCL 200 MG TABLET (FP) PO SCH ×2 (11:01→22:13)
[2021-10-10] MEDS: RITONAVIR 100 MG TABLET PO SCH (11:01)
[2021-10-10] MEDS: MULTIVITAMINS (DAILY MVI) TABLET (FP) PO SCH (11:01)
[2021-10-10] MEDS: DARUNAVIR ETHANOLATE 800 MG TAB PO SCH (11:02)
[2021-10-10] MEDS: DOLUTEGRAVIR SODIUM 50 MG TABLET (NON-FORMULARY) PO SCH (11:02)
[2021-10-10 13:03] LABS: EOS % 0.5 % (0-4.5); HEMATOCRIT 30.8 % (35.4-49); HEMOGLOBIN 9.8 GM/dL (11.7-16.9); MCH 29.9 pg (25.7-33.7); MCHC 31.6 g/dl (32.0-35.9); MEAN CELL VOLUME 94.3 fl (80-96); MEAN PLT VOLUME 9.8 fl (7.5-11.1); NEUT % 81.5 % (42.8-82.8); PLATELET COUNT 175 10^3/uL (134-434); RBC 3.27 M/mm3 (4.00-5.60); RDW 16.2 % (11.9-15.9)
[2021-10-10 13:25] LABS: CALCIUM 8.7 mg/dL (8.5-10.1)
[2021-10-10 13:26] LABS: ALBUMIN 3.4 g/dl (3.4-5.0); BLOOD UREA NITROGEN 92.7 mg/dL (7-18)
[2021-10-10 13:29] LABS: CREATININE 6.8 mg/dL (0.55-1.3)
[2021-10-10 13:30] LABS: BILIRUBIN,TOTAL 0.5 mg/dL (0.2-1); TOT PROT 7.3 g/dl (6.4-8.2)
[2021-10-10] MEDS ORDERED: DOCUSATE SODIUM 100 MG CAPSULE (FP) PO ONE (20:02)
[2021-10-10] MEDS: SENNOSIDES 8.6MG TABLET (FP) PO SCH (21:22)
[2021-10-10] MEDS: ATORVASTATIN CA 20 MG TABLET (FP) PO SCH (22:13)
[2021-10-10] MEDS: MONTELUKAST NA 10 MG TABLET PO SCH (22:13)
[2021-10-11] MEDS ORDERED: methaDONE HCL 40 MG DISPERSABLE TABLET ONE (05:33)
[2021-10-11] MEDS ORDERED: methaDONE HCL 10 MG TABLET ONE (05:33)
[2021-10-11] MEDS: FUROSEMIDE 40 MG/4 ML INJECTABLE VIAL IVPUSH SCH ×2 (05:44→13:36)
[2021-10-11] MEDS: LABETALOL HCL 200 MG TABLET (FP) PO SCH ×2 (09:38→22:06)
[2021-10-11] MEDS: amLODIPine BESYLATE 10 MG TABLET (FP) PO SCH (09:38)
[2021-10-11] MEDS: MULTIVITAMINS (DAILY MVI) TABLET (FP) PO SCH (09:39)
[2021-10-11] MEDS: RITONAVIR 100 MG TABLET PO SCH (09:39)
[2021-10-11] MEDS: DOLUTEGRAVIR SODIUM 50 MG TABLET (NON-FORMULARY) PO SCH (09:39)
[2021-10-11] MEDS: DARUNAVIR ETHANOLATE 800 MG TAB PO SCH (09:39)
[2021-10-11] MEDS: HEPARIN NA (PORCINE) 5,000 UNITS/ML 1ML VIAL SQ SCH (22:05)
[2021-10-11] MEDS: MONTELUKAST NA 10 MG TABLET PO SCH (22:06)
[2021-10-11] MEDS: ATORVASTATIN CA 20 MG TABLET (FP) PO SCH (22:06)
[2021-10-11] MEDS: SENNOSIDES 8.6MG TABLET (FP) PO SCH (22:06)
[2021-10-12] MEDS ORDERED: methaDONE HCL 10 MG TABLET ONE (06:09)
[2021-10-12] MEDS ORDERED: methaDONE HCL 40 MG DISPERSABLE TABLET ONE (06:09)
[2021-10-12] MEDS: HEPARIN NA (PORCINE) 5,000 UNITS/ML 1ML VIAL SQ SCH ×3 (06:21→22:25)
[2021-10-12] MEDS: FUROSEMIDE 40 MG/4 ML INJECTABLE VIAL IVPUSH SCH ×2 (06:21→13:16)
[2021-10-12 08:30] LABS: BASO % 0.1 % (0-2.0); EOS % 5.7 % (0-4.5); HEMATOCRIT 29.5 % (35.4-49); HEMOGLOBIN 9.8 GM/dL (11.7-16.9); LYMPH % 24.3 % (8-40); MCH 31.1 pg (25.7-33.7); MCHC 33.1 g/dl (32.0-35.9); MEAN PLT VOLUME 9.4 fl (7.5-11.1); MONO % 11.8 % (3.8-10.2); NEUT % 58.1 % (42.8-82.8); PLATELET COUNT 152 10^3/uL (134-434); RBC 3.13 M/mm3 (4.00-5.60); RDW 17.2 % (11.9-15.9); WHITE BLOOD COUNT 4.3 K/mm3 (4.0-10.0)
[2021-10-12 08:48] LABS: CALCIUM 8.6 mg/dL (8.5-10.1)
[2021-10-12 08:49] LABS: BLOOD UREA NITROGEN 92.9 mg/dL (7-18)
[2021-10-12 08:51] LABS: CREATININE 7.1 mg/dL (0.55-1.3); PHOSPHOROUS 5.2 mg/dL (2.5-4.9)
[2021-10-12 08:52] LABS: BILIRUBIN,TOTAL 0.5 mg/dL (0.2-1)
[2021-10-12 08:53] LABS: TOT PROT 6.6 g/dl (6.4-8.2)
[2021-10-12] MEDS: MULTIVITAMINS (DAILY MVI) TABLET (FP) PO SCH (09:36)
[2021-10-12] MEDS: LABETALOL HCL 200 MG TABLET (FP) PO SCH ×2 (09:36→22:25)
[2021-10-12] MEDS: DOLUTEGRAVIR SODIUM 50 MG TABLET (NON-FORMULARY) PO SCH (09:37)
[2021-10-12] MEDS: RITONAVIR 100 MG TABLET PO SCH (09:37)
[2021-10-12] MEDS: DARUNAVIR ETHANOLATE 800 MG TAB PO SCH (09:37)
[2021-10-12] MEDS: amLODIPine BESYLATE 10 MG TABLET (FP) PO SCH (09:39)
[2021-10-12] MEDS: ATORVASTATIN CA 20 MG TABLET (FP) PO SCH (22:25)
[2021-10-12] MEDS: SENNOSIDES 8.6MG TABLET (FP) PO SCH (22:25)
[2021-10-12] MEDS: MONTELUKAST NA 10 MG TABLET PO SCH (22:25)
[2021-10-13] MEDS ORDERED: methaDONE HCL 40 MG DISPERSABLE TABLET ONE (06:04)
[2021-10-13] MEDS ORDERED: methaDONE HCL 10 MG TABLET ONE (06:05)
[2021-10-13] MEDS: HEPARIN NA (PORCINE) 5,000 UNITS/ML 1ML VIAL SQ SCH ×3 (06:26→22:46)
[2021-10-13] MEDS: MULTIVITAMINS (DAILY MVI) TABLET (FP) PO SCH (09:12)
[2021-10-13] MEDS: DOLUTEGRAVIR SODIUM 50 MG TABLET (NON-FORMULARY) PO SCH (09:12)
[2021-10-13] MEDS: DARUNAVIR ETHANOLATE 800 MG TAB PO SCH (09:12)
[2021-10-13] MEDS: LABETALOL HCL 200 MG TABLET (FP) PO SCH ×2 (09:13→22:46)
[2021-10-13] MEDS: RITONAVIR 100 MG TABLET PO SCH (09:13)
[2021-10-13 11:28] LABS: BASO % 0.2 % (0-2.0); EOS % 6.5 % (0-4.5); HEMATOCRIT 30.7 % (35.4-49); LYMPH % 24.9 % (8-40); MCH 30.3 pg (25.7-33.7); MCHC 32.5 g/dl (32.0-35.9); MEAN CELL VOLUME 93.3 fl (80-96); MEAN PLT VOLUME 9.8 fl (7.5-11.1); MONO % 13.1 % (3.8-10.2); NEUT % 55.3 % (42.8-82.8); PLATELET COUNT 167 10^3/uL (134-434); RBC 3.29 M/mm3 (4.00-5.60); RDW 16.5 % (11.9-15.9)
[2021-10-13 11:40] LABS: INR 1.03 (0.83-1.09); PROTHROMBIN TIME (PATIENT) 11.9 SEC (9.7-13.0)
[2021-10-13 11:48] LABS: CALCIUM 8.8 mg/dL (8.5-10.1)
[2021-10-13 11:49] LABS: BLOOD UREA NITROGEN 90.8 mg/dL (7-18); MAGNESIUM 2.3 mg/dL (1.8-2.4)
[2021-10-13 11:52] LABS: PHOSPHOROUS 5.3 mg/dL (2.5-4.9)
[2021-10-13 11:54] LABS: BILIRUBIN,TOTAL 0.6 mg/dL (0.2-1); TOT PROT 6.6 g/dl (6.4-8.2)
[2021-10-13 12:07] LABS: ANTIGLOMERULAR BASEMENT MEN.AB 4 units (0-20)
[2021-10-13 12:20] VITALS: BMI 29.2
[2021-10-13] MEDS ORDERED: SODIUM CHLORIDE 250 ML IV PRN ×3 (13:04→17:57)
[2021-10-13] MEDS ORDERED: LIDOCAINE HCL 1%, 10 MG/ML (20ML VIAL) ONE (13:05)
[2021-10-13] MEDS ORDERED: HEPARIN NA (PORCINE) 5,000 UNITS/ML 1ML VIAL ONE (13:06)
[2021-10-13] MEDS ORDERED: LIDOCAINE HCL 1%, 10 MG/ML (20ML VIAL) NR ONE ×4 (13:12→14:18)
[2021-10-13] MEDS ORDERED: HEPARIN NA (PORCINE) 5,000 UNITS/ML 1ML VIAL SQ ONE ×2 (13:13→14:15)
[2021-10-13] MEDS ORDERED: ALBUMIN HUMAN 25% 12.5 GM/50 ML VIAL IVPB SCH (13:15)
[2021-10-13] MEDS ORDERED: PROMETHAZINE HCL 25 MG/1 ML VIAL IVPUSH PRN ×2 (13:35→14:48)
[2021-10-13] MEDS ORDERED: oxyCODONE HCL 5 MG TABLET PO PRN ×2 (13:35→14:48)
[2021-10-13] MEDS ORDERED: ONDANSETRON 4 MG/2 ML VIAL IVPUSH PRN ×2 (13:35→14:48)
[2021-10-13] MEDS ORDERED: MIDAZOLAM HCL 2 MG/2 ML SINGLE DOSE VIAL ONE ×2 (13:54→14:09)
[2021-10-13] MEDS ORDERED: FENTANYL CITRATE/PF 50 MCG/ML VIAL ONE (13:54)
[2021-10-13] MEDS ORDERED: ceFAZolin SODIUM 1 GM VIAL IVPB ONE (14:00)
[2021-10-13] MEDS ORDERED: ceFAZolin SODIUM 1 GM VIAL ONE ×2 (14:23)
[2021-10-13] MEDS ORDERED: ALBUTEROL SO4 HFA INHALER IH PRN (14:48)
[2021-10-13] MEDS: ALBUMIN HUMAN 25% 12.5 GM/50 ML VIAL IV SCH ×2 (20:32→20:33)
[2021-10-13] MEDS: ATORVASTATIN CA 20 MG TABLET (FP) PO SCH (22:46)
[2021-10-13] MEDS: SENNOSIDES 8.6MG TABLET (FP) PO SCH (22:46)
[2021-10-13] MEDS: MONTELUKAST NA 10 MG TABLET PO SCH (22:46)
[2021-10-14] MEDS ORDERED: methaDONE HCL 40 MG DISPERSABLE TABLET ONE (05:48)
[2021-10-14] MEDS ORDERED: methaDONE HCL 10 MG TABLET ONE (05:49)
[2021-10-14] MEDS: HEPARIN NA (PORCINE) 5,000 UNITS/ML 1ML VIAL SQ SCH ×3 (05:50→22:05)
[2021-10-14] MEDS ORDERED: EPOETIN ALFA-EPBX 4,000 UNIT/ML VIAL IVPUSH ONE (09:15)
[2021-10-14 11:30] LABS: BASO % 0.5 % (0-2.0); HEMATOCRIT 30.5 % (35.4-49); HEMOGLOBIN 9.7 GM/dL (11.7-16.9); LYMPH % 19.2 % (8-40); MCH 30.1 pg (25.7-33.7); MEAN CELL VOLUME 94.2 fl (80-96); MEAN PLT VOLUME 9.9 fl (7.5-11.1); MONO % 15.5 % (3.8-10.2); NEUT % 58.8 % (42.8-82.8); PLATELET COUNT 147 10^3/uL (134-434); RBC 3.23 M/mm3 (4.00-5.60); RDW 17.2 % (11.9-15.9); WHITE BLOOD COUNT 4.2 K/mm3 (4.0-10.0)
[2021-10-14 12:11] LABS: BLOOD UREA NITROGEN 79.8 mg/dL (7-18); CALCIUM 8.5 mg/dL (8.5-10.1); MAGNESIUM 2.2 mg/dL (1.8-2.4)
[2021-10-14 12:14] LABS: PHOSPHOROUS 5.2 mg/dL (2.5-4.9)
[2021-10-14 12:15] LABS: CREATININE 6.7 mg/dL (0.55-1.3)
[2021-10-14 12:16] LABS: TOT PROT 6.6 g/dl (6.4-8.2)
[2021-10-14 12:17] LABS: BILIRUBIN,TOTAL 0.6 mg/dL (0.2-1)
[2021-10-14] MEDS: LABETALOL HCL 200 MG TABLET (FP) PO SCH ×2 (12:40→22:04)
[2021-10-14] MEDS: MULTIVITAMINS (DAILY MVI) TABLET (FP) PO SCH (12:41)
[2021-10-14] MEDS: DOLUTEGRAVIR SODIUM 50 MG TABLET (NON-FORMULARY) PO SCH (12:41)
[2021-10-14] MEDS: DARUNAVIR ETHANOLATE 800 MG TAB PO SCH (12:41)
[2021-10-14] MEDS: RITONAVIR 100 MG TABLET PO SCH (12:41)
[2021-10-14 16:26] LABS: ATYPICAL pANCA <1:20 titer (Neg:<1:20); C-ANCA <1:20 titer (Neg:<1:20)
[2021-10-14] MEDS: SEVELAMER CARBONATE 800 MG TAB (FP) PO SCH (18:21)
[2021-10-14] MEDS: ATORVASTATIN CA 20 MG TABLET (FP) PO SCH (22:04)
[2021-10-14] MEDS: SENNOSIDES 8.6MG TABLET (FP) PO SCH (22:04)
[2021-10-14] MEDS: MONTELUKAST NA 10 MG TABLET PO SCH (22:04)
[2021-10-15] MEDS ORDERED: methaDONE HCL 40 MG DISPERSABLE TABLET ONE (06:16)
[2021-10-15] MEDS ORDERED: methaDONE HCL 10 MG TABLET ONE (06:16)
[2021-10-15] MEDS: HEPARIN NA (PORCINE) 5,000 UNITS/ML 1ML VIAL SQ SCH ×3 (06:21→21:18)
[2021-10-15] MEDS: LABETALOL HCL 200 MG TABLET (FP) PO SCH ×2 (12:30→21:17)
[2021-10-15] MEDS: SEVELAMER CARBONATE 800 MG TAB (FP) PO SCH ×3 (12:30→18:48)
[2021-10-15] MEDS: MULTIVITAMINS (DAILY MVI) TABLET (FP) PO SCH (12:30)
[2021-10-15] MEDS: RITONAVIR 100 MG TABLET PO SCH (13:02)
[2021-10-15] MEDS: DOLUTEGRAVIR SODIUM 50 MG TABLET (NON-FORMULARY) PO SCH (13:02)
[2021-10-15] MEDS: DARUNAVIR ETHANOLATE 800 MG TAB PO SCH (13:02)
[2021-10-15] MEDS: SENNOSIDES 8.6MG TABLET (FP) PO SCH (21:17)
[2021-10-15] MEDS: ATORVASTATIN CA 20 MG TABLET (FP) PO SCH (21:17)
[2021-10-15] MEDS: MONTELUKAST NA 10 MG TABLET PO SCH (21:17)
[2021-10-16] MEDS ORDERED: methaDONE HCL 10 MG TABLET ONE (05:38)
[2021-10-16] MEDS ORDERED: methaDONE HCL 40 MG DISPERSABLE TABLET ONE (05:38)
[2021-10-16] MEDS: HEPARIN NA (PORCINE) 5,000 UNITS/ML 1ML VIAL SQ SCH ×3 (06:27→22:12)
[2021-10-16] MEDS: SEVELAMER CARBONATE 800 MG TAB (FP) PO SCH ×3 (08:46→17:14)
[2021-10-16] MEDS: MULTIVITAMINS (DAILY MVI) TABLET (FP) PO SCH (09:37)
[2021-10-16] MEDS: DOLUTEGRAVIR SODIUM 50 MG TABLET (NON-FORMULARY) PO SCH (09:38)
[2021-10-16] MEDS: RITONAVIR 100 MG TABLET PO SCH (09:38)
[2021-10-16] MEDS: DARUNAVIR ETHANOLATE 800 MG TAB PO SCH (09:38)
[2021-10-16] MEDS: LABETALOL HCL 200 MG TABLET (FP) PO SCH ×2 (10:00→22:09)
[2021-10-16] MEDS ORDERED: SODIUM CHLORIDE 250 ML IV PRN ×2 (10:37)
[2021-10-16] MEDS ORDERED: EPOETIN ALFA-EPBX 4,000 UNIT/ML VIAL IVPUSH ONE (11:00)
[2021-10-16 12:45] LABS: CALCIUM 8.8 mg/dL (8.5-10.1); MAGNESIUM 2.1 mg/dL (1.8-2.4)
[2021-10-16 12:46] LABS: BLOOD UREA NITROGEN 57.6 mg/dL (7-18)
[2021-10-16 12:49] LABS: CREATININE 6.1 mg/dL (0.55-1.3); PHOSPHOROUS 4.4 mg/dL (2.5-4.9)
[2021-10-16] MEDS: TORSEMIDE 20 MG TABLET (FP) PO SCH (15:49)
[2021-10-16] MEDS: MONTELUKAST NA 10 MG TABLET PO SCH (22:09)
[2021-10-16] MEDS: SENNOSIDES 8.6MG TABLET (FP) PO SCH (22:09)
[2021-10-16] MEDS: ATORVASTATIN CA 20 MG TABLET (FP) PO SCH (22:09)
[2021-10-17] MEDS ORDERED: methaDONE HCL 10 MG TABLET ONE (06:33)
[2021-10-17] MEDS ORDERED: methaDONE HCL 40 MG DISPERSABLE TABLET ONE (06:33)
[2021-10-17] MEDS: HEPARIN NA (PORCINE) 5,000 UNITS/ML 1ML VIAL SQ SCH ×4 (06:44→21:36)
[2021-10-17] MEDS: TORSEMIDE 20 MG TABLET (FP) PO SCH (09:35)
[2021-10-17] MEDS: RITONAVIR 100 MG TABLET PO SCH (09:36)
[2021-10-17] MEDS: MULTIVITAMINS (DAILY MVI) TABLET (FP) PO SCH (09:36)
[2021-10-17] MEDS: DARUNAVIR ETHANOLATE 800 MG TAB PO SCH (09:36)
[2021-10-17] MEDS: SEVELAMER CARBONATE 800 MG TAB (FP) PO SCH ×3 (09:36→17:29)
[2021-10-17] MEDS: DOLUTEGRAVIR SODIUM 50 MG TABLET (NON-FORMULARY) PO SCH (09:36)
[2021-10-17] MEDS: LABETALOL HCL 200 MG TABLET (FP) PO SCH ×2 (09:37→21:33)
[2021-10-17 14:46] LABS: CALCIUM 8.7 mg/dL (8.5-10.1)
[2021-10-17 14:47] LABS: BLOOD UREA NITROGEN 35.1 mg/dL (7-18); MAGNESIUM 2.1 mg/dL (1.8-2.4)
[2021-10-17 14:49] LABS: CREATININE 4.8 mg/dL (0.55-1.3); PHOSPHOROUS 3.8 mg/dL (2.5-4.9)
[2021-10-17] MEDS: ATORVASTATIN CA 20 MG TABLET (FP) PO SCH (21:33)
[2021-10-17] MEDS: MONTELUKAST NA 10 MG TABLET PO SCH (21:33)
[2021-10-17] MEDS: SENNOSIDES 8.6MG TABLET (FP) PO SCH (21:33)
[2021-10-17] MEDS ORDERED: GABAPENTIN 300 MG CAPSULE PO SCH (22:00)
[2021-10-18] MEDS ORDERED: methaDONE HCL 40 MG DISPERSABLE TABLET ONE (06:09)
[2021-10-18] MEDS ORDERED: methaDONE HCL 10 MG TABLET ONE (06:09)
[2021-10-18] MEDS: HEPARIN NA (PORCINE) 5,000 UNITS/ML 1ML VIAL SQ SCH ×2 (06:13→14:07)
[2021-10-18] MEDS: SEVELAMER CARBONATE 800 MG TAB (FP) PO SCH ×2 (08:56→14:05)
[2021-10-18] MEDS: DOLUTEGRAVIR SODIUM 50 MG TABLET (NON-FORMULARY) PO SCH (09:04)
[2021-10-18] MEDS: RITONAVIR 100 MG TABLET PO SCH (09:04)
[2021-10-18] MEDS: DARUNAVIR ETHANOLATE 800 MG TAB PO SCH (09:04)
[2021-10-18] MEDS: MULTIVITAMINS (DAILY MVI) TABLET (FP) PO SCH (09:04)
[2021-10-18] MEDS ORDERED: EPOETIN ALFA-EPBX 4,000 UNIT/ML VIAL IVPUSH ONE (10:00)
[2021-10-18] MEDS ORDERED: SODIUM CHLORIDE 250 ML IV PRN (10:00)
[2021-10-18] MEDS ORDERED: COLLAGENASE CLOSTRIDIUM HIST. 30 GRAMS TUBE TP SCH (13:00)
[2021-10-18 14:02] VITALS: BP 124/80; PULSE 88; TEMP 98.1
[2021-10-18] MEDS: TORSEMIDE 20 MG TABLET (FP) PO SCH (14:07)
[2021-10-18] MEDS: LABETALOL HCL 200 MG TABLET (FP) PO SCH (14:07)
== END 2021-10-18 16:30 | disposition home or self-care (01) | DRG 291 ==
LOC: JER 11:15 → JERBED 14:47 → J4S 10-08 04:08
PROVIDERS: ADMIT Internal Medicine; ATTEND Internal Medicine
PROC: B548ZZA Ultrasonography of Superior Vena Cava, Guidance (ICD-10-PCS; 2021-10-13)
PROC: 5A1D70Z Performance of Urinary Filtration, Intermittent, Less than 6 Hours Per Day (ICD-10-PCS; 2021-10-13)
PROC: 02H633Z Insertion of Infusion Device into Right Atrium, Percutaneous Approach (ICD-10-PCS; principal; 2021-10-13 13:46)
DX: I13.2 Hypertensive heart and chronic kidney disease with heart failure and with stage 5 chronic kidney disease, or end stage renal disease (principal); I50.33 Acute on chronic diastolic (congestive) heart failure; N18.6 End stage renal disease; F11.20 Opioid dependence, uncomplicated; N17.9 Acute kidney failure, unspecified; B20 Human immunodeficiency virus [HIV] disease; N18.9 Chronic kidney disease, unspecified; E78.5 Hyperlipidemia, unspecified; R94.31 Abnormal electrocardiogram [ECG] [EKG]; Z86.73 Personal history of transient ischemic attack (TIA), and cerebral infarction without residual deficits; F17.200 Nicotine dependence, unspecified, uncomplicated; F39 Unspecified mood [affective] disorder; J44.9 Chronic obstructive pulmonary disease, unspecified; B19.20 Unspecified viral hepatitis C without hepatic coma; F32.A Depression, unspecified; D63.1 Anemia in chronic kidney disease; E83.39 Other disorders of phosphorus metabolism; B35.1 Tinea unguium
CPT/HCPCS: 0241U-QW; 36415; 71045-TC-FY; 76000-TC-FY; 76705-TC; 76775-TC; 76856-TC; 80048; 80053; 80307; 81003; 82272; 82436; 82570; 83516; 83520; 83735; 83880; 83930; 84100; 84155; 84156; 84165; 84300; 84484; 85025; 85610; 86038; 86160; 86225; 86256; 86705; 86803; 87081; 87086; 87340; 87517; 87522; 93005; 93010; 93306-TC; 93970-TC; 94640; 94760; 97116-GP; 97161-GP; 99285-25; C9803-CS; J1644; Q5106; U0003; U0005

== ENCOUNTER 2022-01-20 10:40 | Observation (INO) | payer OTHER ==
[2022-01-20 10:53] VITALS: BMI 26.6
[2022-01-20] MEDS ORDERED: SODIUM CHLORIDE 250 ML IV PRN (14:26)
[2022-01-20 15:28] LABS: BASO % 0.4 % (0-2.0); HEMATOCRIT 32.4 % (35.4-49); HEMOGLOBIN 10.4 GM/dL (11.7-16.9); LYMPH % 19.5 % (8-40); MCH 29.7 pg (25.7-33.7); MCHC 32.1 g/dl (32.0-35.9); MEAN CELL VOLUME 92.6 fl (80-96); MEAN PLT VOLUME 9.2 fl (7.5-11.1); MONO % 11.1 % (3.8-10.2); PLATELET COUNT 181 10^3/uL (134-434); RDW 15.7 % (11.9-15.9); WHITE BLOOD COUNT 6.5 K/mm3 (4.0-10.0)
[2022-01-20 15:33] LABS: INR 1.11 (0.83-1.09); PROTHROMBIN TIME (PATIENT) 12.8 SEC (9.7-13.0)
[2022-01-20 15:36] LABS: ACTIVATED PTT 29.8 SECONDS (25.2-36.5); CHLORIDE 97 mmol/L (98-107); SODIUM 132 mmol/L (136-145)
[2022-01-20 15:38] LABS: CALCIUM 9.3 mg/dL (8.5-10.1)
[2022-01-20 15:39] LABS: ALBUMIN 3.8 g/dl (3.4-5.0); BLOOD UREA NITROGEN 62.8 mg/dL (7-18); CO2 23 mmol/L (21-32); GLUCOSE,RANDOM 62 mg/dL (74-106); MAGNESIUM 2.1 mg/dL (1.8-2.4)
[2022-01-20 15:42] LABS: PHOSPHOROUS 4.6 mg/dL (2.5-4.9); SGOT/AST 39 U/L (15-37); SGPT/ALT 27 U/L (13-61)
[2022-01-20 15:43] LABS: BILIRUBIN,TOTAL 0.5 mg/dL (0.2-1); TOT PROT 8.2 g/dl (6.4-8.2)
[2022-01-20 15:46] LABS: ALK PHOS 102 U/L (45-117); ANION GAP 13 MMOL/L (8-16); CREATININE 9.9 mg/dL (0.55-1.3)
[2022-01-20] MEDS ORDERED: CALCIUM GLUCONATE 10% - 1,000 MG/10 ML VIAL IVPB ONE (15:52)
[2022-01-20] MEDS ORDERED: SODIUM ZIRCONIUM CYCLOSILICATE (LOKELMA) 5 GM PACKET PO ONE (15:52)
[2022-01-20] MEDS ORDERED: SODIUM ZIRCONIUM CYCLOSILICATE (LOKELMA) 5 GM PACKET ONE (16:12)
[2022-01-20] MEDS ORDERED: CALCIUM GLUC IN NACL, ISO-OSM 1 GM/50 ML BAG IVPB ONE (16:12)
[2022-01-21] MEDS ORDERED: HEPARIN NA (PORCINE) 5,000 UNITS/ML 1ML VIAL ONE ×2 (05:16→14:35)
[2022-01-21] MEDS: HEPARIN NA (PORCINE) 5,000 UNITS/ML 1ML VIAL SQ SCH ×3 (05:21→14:45)
[2022-01-21 08:35] LABS: BASO % 0.5 % (0-2.0); EOS % 6.5 % (0-4.5); HEMATOCRIT 32.3 % (35.4-49); HEMOGLOBIN 10.7 GM/dL (11.7-16.9); LYMPH % 18.6 % (8-40); MCH 30.5 pg (25.7-33.7); MEAN CELL VOLUME 92.3 fl (80-96); MEAN PLT VOLUME 8.5 fl (7.5-11.1); NEUT % 60.4 % (42.8-82.8); PLATELET COUNT 164 10^3/uL (134-434); RDW 16.1 % (11.9-15.9); WHITE BLOOD COUNT 3.9 K/mm3 (4.0-10.0)
[2022-01-21 08:40] LABS: INR 1.11 (0.83-1.09); PROTHROMBIN TIME (PATIENT) 12.8 SEC (9.7-13.0)
[2022-01-21 08:43] LABS: ACTIVATED PTT 30.4 SECONDS (25.2-36.5)
[2022-01-21 09:06] LABS: CALCIUM 9.2 mg/dL (8.5-10.1)
[2022-01-21 09:07] LABS: ALBUMIN 3.6 g/dl (3.4-5.0); BLOOD UREA NITROGEN 40.8 mg/dL (7-18); MAGNESIUM 2.1 mg/dL (1.8-2.4)
[2022-01-21 09:10] LABS: CREATININE 6.9 mg/dL (0.55-1.3); PHOSPHOROUS 4.8 mg/dL (2.5-4.9)
[2022-01-21 09:12] LABS: BILIRUBIN,TOTAL 0.6 mg/dL (0.2-1)
[2022-01-21] MEDS ORDERED: ALBUTEROL SO4 2.5/IPRATROPIUM 0.5 INH SOL 3 ML VIAL.NEB. NEB PRN (09:42)
[2022-01-21] MEDS: SEVELAMER CARBONATE 800 MG TAB (FP) PO SCH ×3 (10:00→18:02)
[2022-01-21] MEDS: DOLUTEGRAVIR SODIUM 50 MG TABLET (NON-FORMULARY) PO SCH (10:04)
[2022-01-21] MEDS: RITONAVIR 100 MG TABLET PO SCH (10:04)
[2022-01-21] MEDS: DARUNAVIR ETHANOLATE 800 MG TAB PO SCH (10:04)
[2022-01-21 13:12] LABS: EPI CELLS 5 /uL (0-25.1); HYALINE CASTS 1 /uL (0-3.1); URINE APPEARANCE CLEAR; URINE BACTERIA 32 /uL (0-1359); URINE BILIRUBIN NEGATIVE (NEGATIVE); URINE COLOR YELLOW; URINE GLUCOSE (UA) NEGATIVE (NEGATIVE); URINE KETONE NEGATIVE (NEGATIVE); URINE LEUK ESTERASE TRACE (NEGATIVE); URINE NITRITE NEGATIVE (NEGATIVE); URINE PROTEIN 2+ (NEGATIVE); URINE RBC 121 /uL (0-23.9); URINE UROBILINOGEN 0.2 mg/dL (0.2-1.0); URINE WBC 20 /uL (0-25.8)
[2022-01-21] MEDS ORDERED: SODIUM ZIRCONIUM CYCLOSILICATE (LOKELMA) 5 GM PACKET PO ONE (14:00)
[2022-01-21] MEDS ORDERED: SODIUM ZIRCONIUM CYCLOSILICATE (LOKELMA) 5 GM PACKET ONE (14:34)
[2022-01-21] MEDS ORDERED: SODIUM CHLORIDE 250 ML IV PRN (15:39)
[2022-01-22] MEDS: HEPARIN NA (PORCINE) 5,000 UNITS/ML 1ML VIAL SQ SCH (06:22)
[2022-01-22] MEDS ORDERED: HEPARIN NA (PORCINE) 5,000 UNITS/ML 1ML VIAL ONE (06:26)
[2022-01-22 07:08] LABS: HEMATOCRIT 34.2 % (35.4-49); MCH 29.7 pg (25.7-33.7); MCHC 32.2 g/dl (32.0-35.9); MEAN PLT VOLUME 8.7 fl (7.5-11.1); PLATELET COUNT 170 10^3/uL (134-434); RBC 3.72 M/mm3 (4.00-5.60); RDW 15.9 % (11.9-15.9); WHITE BLOOD COUNT 4.1 K/mm3 (4.0-10.0)
[2022-01-22 07:22] LABS: BLOOD UREA NITROGEN 58.4 mg/dL (7-18); CALCIUM 9.1 mg/dL (8.5-10.1); CO2 26 mmol/L (21-32); GLUCOSE,RANDOM 78 mg/dL (74-106)
[2022-01-22 07:25] LABS: PHOSPHOROUS 5.1 mg/dL (2.5-4.9)
[2022-01-22 07:43] LABS: ANION GAP 11 MMOL/L (8-16); CHLORIDE 103 mmol/L (98-107); SODIUM 140 mmol/L (136-145)
[2022-01-22 07:47] LABS: CREATININE 8.4 mg/dL (0.55-1.3)
[2022-01-22 09:16] VITALS: RESP 18
[2022-01-22] MEDS ORDERED: amLODIPine BESYLATE 5 MG TABLET (FP) PO SCH (10:00)
[2022-01-22] MEDS ORDERED: GABAPENTIN 300 MG CAPSULE PO SCH (10:00)
[2022-01-22] MEDS: SEVELAMER CARBONATE 800 MG TAB (FP) PO SCH ×2 (10:00→12:30)
[2022-01-22 12:08] VITALS: BP 133/98; PULSE 73; TEMP 98
[2022-01-22] MEDS: DOLUTEGRAVIR SODIUM 50 MG TABLET (NON-FORMULARY) PO SCH (12:30)
[2022-01-22] MEDS: RITONAVIR 100 MG TABLET PO SCH (12:30)
[2022-01-22] MEDS: DARUNAVIR ETHANOLATE 800 MG TAB PO SCH (12:30)
[2022-01-22] MEDS ORDERED: amLODIPine BESYLATE 5 MG TABLET (FP) ONE (12:43)
== END 2022-01-22 16:30 | disposition home or self-care (01) ==
LOC: JER 10:40 → JERBED 13:19
PROVIDERS: ADMIT Internal Medicine; ATTEND Internal Medicine
PROC: 3E0F7GC Introduction of Other Therapeutic Substance into Respiratory Tract, Via Natural or Artificial Opening (ICD-10-PCS; principal; 2022-01-20)
PROC: 3E033GC Introduction of Other Therapeutic Substance into Peripheral Vein, Percutaneous Approach (ICD-10-PCS; 2022-01-20)
PROC: 3E023GC Introduction of Other Therapeutic Substance into Muscle, Percutaneous Approach (ICD-10-PCS; 2022-01-20)
DX: I13.2 Hypertensive heart and chronic kidney disease with heart failure and with stage 5 chronic kidney disease, or end stage renal disease (principal); N18.6 End stage renal disease; Z99.2 Dependence on renal dialysis; B20 Human immunodeficiency virus [HIV] disease; E78.5 Hyperlipidemia, unspecified; Z86.73 Personal history of transient ischemic attack (TIA), and cerebral infarction without residual deficits; Z88.8 Allergy status to other drugs, medicaments and biological substances; Z91.018 Allergy to other foods
CPT/HCPCS: 0241U-QW; 36415; 70450-TC; 71045-TC-FY; 72125-TC; 73562-TC-RT-FY; 73700-TC-RT; 80048; 80053; 81003; 82962; 83735; 84100; 84484; 85025; 85027; 85610; 85730; 86803; 87086; 87340; 87522; 93005; 93010; 93880-TC; 94640; 96372; 96374; 97116-GP; 97162-GP; 99285-25; G0378; J1644

== ENCOUNTER 2022-06-11 08:49 | Inpatient (IN) | payer OTHER ==
[2022-06-11] MEDS ORDERED: GABAPENTIN 300 MG CAPSULE PO ONE (09:31)
[2022-06-11] MEDS ORDERED: GABAPENTIN 300 MG CAPSULE ONE (10:17)
[2022-06-11 11:59] LABS: BASO % 0.8 % (0-2.0); EOS % 6.5 % (0-4.5); HEMATOCRIT 30.9 % (35.4-49); HEMOGLOBIN 10.2 GM/dL (11.7-16.9); LYMPH % 26.8 % (8-40); MEAN CELL VOLUME 97.2 fl (80-96); MONO % 15.3 % (3.8-10.2); NEUT % 50.6 % (42.8-82.8); PLATELET COUNT 165 10^3/uL (134-434); RBC 3.18 M/mm3 (4.00-5.60); RDW 14.9 % (11.9-15.9); WHITE BLOOD COUNT 5.1 K/mm3 (4.0-10.0)
[2022-06-11 12:20] LABS: CHLORIDE 97 mmol/L (98-107); SODIUM 137 mmol/L (136-145)
[2022-06-11 12:25] LABS: CALCIUM 8.1 mg/dL (8.5-10.1)
[2022-06-11 12:26] LABS: ALBUMIN 3.6 g/dl (3.4-5.0); ANION GAP 12 MMOL/L (8-16); BLOOD UREA NITROGEN 38.9 mg/dL (7-18); CO2 28 mmol/L (21-32); GLUCOSE,RANDOM 87 mg/dL (74-106)
[2022-06-11 12:29] LABS: SGOT/AST 36 U/L (15-37); SGPT/ALT 22 U/L (13-61)
[2022-06-11 12:30] LABS: BILIRUBIN,TOTAL 0.5 mg/dL (0.2-1); TOT PROT 7.3 g/dl (6.4-8.2)
[2022-06-11 12:32] LABS: ALK PHOS 96 U/L (45-117)
[2022-06-11 12:33] LABS: CREATININE 8.9 mg/dL (0.55-1.3)
[2022-06-11] MEDS ORDERED: SODIUM CHLORIDE 250 ML IV PRN (14:04)
[2022-06-11] MEDS ORDERED: ALBUTEROL SO4 HFA INHALER IH PRN (14:05)
[2022-06-11] MEDS ORDERED: FUROSEMIDE 40 MG TABLET (FP) ONE (14:58)
[2022-06-11] MEDS: HEPARIN NA (PORCINE) 5,000 UNITS/ML 1ML VIAL SQ SCH ×2 (15:14→21:35)
[2022-06-11] MEDS: FUROSEMIDE 40 MG TABLET (FP) PO SCH (15:14)
[2022-06-11] MEDS ORDERED: HEPARIN NA (PORCINE) 5,000 UNITS/ML 1ML VIAL IVPUSH ONE (15:30)
[2022-06-11] MEDS ORDERED: ACETAMINOPHEN 325 MG TABLET (FP) PO ONE (16:42)
[2022-06-11] MEDS ORDERED: ACETAMINOPHEN 1000 MG/100 ML BAG IVPB ONE (16:52)
[2022-06-11] MEDS ORDERED: EPOETIN ALFA-EPBX 4,000 UNIT/ML VIAL SQ ONE (17:00)
[2022-06-11] MEDS: SEVELAMER CARBONATE 800 MG TAB (FP) PO SCH (18:09)
[2022-06-11] MEDS ORDERED: GABAPENTIN 300 MG CAPSULE PO SCH ×2 (18:15→22:00)
[2022-06-11 20:47] VITALS: BMI 26.9
[2022-06-11] MEDS: LABETALOL HCL 200 MG TABLET (FP) PO SCH (21:35)
[2022-06-12] MEDS: HEPARIN NA (PORCINE) 5,000 UNITS/ML 1ML VIAL SQ SCH ×3 (06:14→21:09)
[2022-06-12] MEDS: FUROSEMIDE 40 MG TABLET (FP) PO SCH ×2 (06:14→14:24)
[2022-06-12] MEDS ORDERED: ONDANSETRON 4 MG/2 ML VIAL IVPUSH PRN ×2 (07:55→10:58)
[2022-06-12] MEDS ORDERED: PROMETHAZINE HCL 25 MG/1 ML VIAL IVPUSH PRN ×2 (07:55→10:58)
[2022-06-12] MEDS ORDERED: LIDOCAINE HCL 1%, 10 MG/ML (20ML VIAL) ONE (07:57)
[2022-06-12] MEDS ORDERED: HEPARIN NA (PORCINE) 5,000 UNITS/ML 1ML VIAL ONE ×2 (07:58→09:34)
[2022-06-12] MEDS ORDERED: SODIUM CHLORIDE 1,000 ML IV SCH ×2 (08:00→10:58)
[2022-06-12] MEDS: SEVELAMER CARBONATE 800 MG TAB (FP) PO SCH ×3 (09:00→18:08)
[2022-06-12] MEDS ORDERED: MIDAZOLAM HCL 2 MG/2 ML SINGLE DOSE VIAL ONE (09:13)
[2022-06-12] MEDS ORDERED: ceFAZolin SODIUM 1 GM VIAL IVPB ONE (09:13)
[2022-06-12] MEDS ORDERED: SODIUM CHLORIDE 0.9% P/F 10 ML VIAL IJ ONE (09:14)
[2022-06-12] MEDS ORDERED: ceFAZolin SODIUM 1 GM VIAL ONE (09:14)
[2022-06-12] MEDS ORDERED: LIDOCAINE HCL 1%, 10 MG/ML (20ML VIAL) NR ONE ×2 (09:22)
[2022-06-12] MEDS ORDERED: PROPOFOL 20 ML ONE (09:22)
[2022-06-12] MEDS ORDERED: DARUNAVIR ETHANOLATE 800 MG TAB PO SCH (10:00)
[2022-06-12] MEDS: LABETALOL HCL 200 MG TABLET (FP) PO SCH ×2 (10:00→21:09)
[2022-06-12] MEDS ORDERED: DOLUTEGRAVIR SODIUM 50 MG TABLET (NON-FORMULARY) PO SCH (10:00)
[2022-06-12] MEDS ORDERED: amLODIPine BESYLATE 5 MG TABLET (FP) PO SCH (10:00)
[2022-06-12] MEDS ORDERED: RITONAVIR 100 MG TABLET PO SCH (10:00)
[2022-06-12] MEDS ORDERED: ACETAMINOPHEN 325 MG TABLET (FP) PO ONE (10:58)
[2022-06-12] MEDS ORDERED: ALBUTEROL SO4 HFA INHALER IH PRN (10:58)
[2022-06-12] MEDS ORDERED: SODIUM CHLORIDE 250 ML IV PRN (10:58)
[2022-06-12] MEDS ORDERED: ACETAMINOPHEN 1000 MG/100 ML BAG IVPB ONE (10:58)
[2022-06-12] MEDS ORDERED: CLOPIDOGREL BISULFATE 75 MG TABLET (FP) ONE (11:18)
[2022-06-12] MEDS: CLOPIDOGREL BISULFATE 75 MG TABLET (FP) PO SCH (11:58)
[2022-06-12] MEDS ORDERED: ALBUTEROL SO4 2.5/IPRATROPIUM 0.5 INH SOL 3 ML VIAL.NEB. NEB PRN (19:55)
[2022-06-12] MEDS: GABAPENTIN 300 MG CAPSULE PO SCH (21:09)
[2022-06-13] MEDS: HEPARIN NA (PORCINE) 5,000 UNITS/ML 1ML VIAL SQ SCH ×3 (06:31→22:12)
[2022-06-13] MEDS: FUROSEMIDE 40 MG TABLET (FP) PO SCH ×3 (06:31→14:31)
[2022-06-13] MEDS ORDERED: SODIUM CHLORIDE 250 ML IV PRN (07:42)
[2022-06-13] MEDS ORDERED: HEPARIN NA (PORCINE) 5,000 UNITS/ML 1ML VIAL IVPUSH ONE (08:00)
[2022-06-13] MEDS ORDERED: EPOETIN ALFA-EPBX 4,000 UNIT/ML VIAL IVPUSH ONE (09:00)
[2022-06-13 09:54] LABS: HEMATOCRIT 28.3 % (35.4-49); HEMOGLOBIN 9.3 GM/dL (11.7-16.9); MCHC 32.9 g/dl (32.0-35.9); MEAN CELL VOLUME 97.2 fl (80-96); MEAN PLT VOLUME 9.2 fl (7.5-11.1); PLATELET COUNT 139 10^3/uL (134-434); RBC 2.91 M/mm3 (4.00-5.60); RDW 15.1 % (11.9-15.9); WHITE BLOOD COUNT 5.2 K/mm3 (4.0-10.0)
[2022-06-13 10:13] LABS: CHLORIDE 96 mmol/L (98-107); SODIUM 133 mmol/L (136-145)
[2022-06-13 10:14] LABS: CALCIUM 7.3 mg/dL (8.5-10.1)
[2022-06-13 10:15] LABS: ANION GAP 12 MMOL/L (8-16); CO2 26 mmol/L (21-32); MAGNESIUM 1.5 mg/dL (1.8-2.4)
[2022-06-13 10:16] LABS: BLOOD UREA NITROGEN 58.9 mg/dL (7-18); GLUCOSE,RANDOM 168 mg/dL (74-106)
[2022-06-13 10:17] LABS: ALBUMIN 3.1 g/dl (3.4-5.0)
[2022-06-13 10:18] LABS: SGOT/AST 32 U/L (15-37); SGPT/ALT 16 U/L (13-61)
[2022-06-13 10:20] LABS: CHOLESTEROL 186 mg/dL (50-200); PHOSPHOROUS 5.7 mg/dL (2.5-4.9); TOT PROT 6.6 g/dl (6.4-8.2); TRIGLYCERIDES 190 mg/dL (0-150)
[2022-06-13 10:21] LABS: BILIRUBIN,TOTAL 0.4 mg/dL (0.2-1); LDL CHOLESTEROL (ONLY SJRH) 116 mg/dL (5-100)
[2022-06-13 10:22] LABS: ALK PHOS 83 U/L (45-117); HDL CHOLESTEROL 40 mg/dL (40-60)
[2022-06-13 10:23] LABS: CREATININE 9.4 mg/dL (0.55-1.3)
[2022-06-13] MEDS ORDERED: MAGNESIUM SULF 50% (8.12 MEQ/2 ML-1 GM VIAL) IVPB ONE (11:17)
[2022-06-13] MEDS: SEVELAMER CARBONATE 800 MG TAB (FP) PO SCH ×3 (11:52→17:41)
[2022-06-13] MEDS: LABETALOL HCL 200 MG TABLET (FP) PO SCH ×2 (11:52→22:13)
[2022-06-13] MEDS: CLOPIDOGREL BISULFATE 75 MG TABLET (FP) PO SCH (11:52)
[2022-06-13] MEDS: amLODIPine BESYLATE 5 MG TABLET (FP) PO SCH (11:53)
[2022-06-13] MEDS: DARUNAVIR ETHANOLATE 800 MG TAB PO SCH (11:56)
[2022-06-13] MEDS: RITONAVIR 100 MG TABLET PO SCH (11:57)
[2022-06-13] MEDS: DOLUTEGRAVIR SODIUM 50 MG TABLET (NON-FORMULARY) PO SCH (11:57)
[2022-06-13] MEDS: GABAPENTIN 300 MG CAPSULE PO SCH (22:13)
[2022-06-13] MEDS: ATORVASTATIN CA 40 MG TABLET (FP) PO SCH (22:13)
[2022-06-14] MEDS: FUROSEMIDE 40 MG TABLET (FP) PO SCH ×2 (06:30→14:56)
[2022-06-14] MEDS: HEPARIN NA (PORCINE) 5,000 UNITS/ML 1ML VIAL SQ SCH ×4 (06:31→21:32)
[2022-06-14] MEDS: SEVELAMER CARBONATE 800 MG TAB (FP) PO SCH ×3 (09:05→17:03)
[2022-06-14] MEDS: CLOPIDOGREL BISULFATE 75 MG TABLET (FP) PO SCH (09:05)
[2022-06-14] MEDS: LABETALOL HCL 200 MG TABLET (FP) PO SCH ×2 (09:05→22:59)
[2022-06-14] MEDS: amLODIPine BESYLATE 5 MG TABLET (FP) PO SCH (09:05)
[2022-06-14] MEDS: DOLUTEGRAVIR SODIUM 50 MG TABLET (NON-FORMULARY) PO SCH (09:06)
[2022-06-14] MEDS: RITONAVIR 100 MG TABLET PO SCH (09:06)
[2022-06-14] MEDS: DARUNAVIR ETHANOLATE 800 MG TAB PO SCH (09:06)
[2022-06-14] MEDS ORDERED: SODIUM CHLORIDE 250 ML IV PRN (21:44)
[2022-06-14] MEDS: GABAPENTIN 300 MG CAPSULE PO SCH (22:58)
[2022-06-14] MEDS: ATORVASTATIN CA 40 MG TABLET (FP) PO SCH (22:59)
[2022-06-15] MEDS: FUROSEMIDE 40 MG TABLET (FP) PO SCH (07:10)
[2022-06-15] MEDS: RITONAVIR 100 MG TABLET PO SCH (09:42)
[2022-06-15] MEDS: amLODIPine BESYLATE 5 MG TABLET (FP) PO SCH (09:42)
[2022-06-15] MEDS: LABETALOL HCL 200 MG TABLET (FP) PO SCH ×2 (09:42→21:28)
[2022-06-15] MEDS: SEVELAMER CARBONATE 800 MG TAB (FP) PO SCH ×2 (09:42→12:17)
[2022-06-15] MEDS: CLOPIDOGREL BISULFATE 75 MG TABLET (FP) PO SCH (09:42)
[2022-06-15] MEDS: DARUNAVIR ETHANOLATE 800 MG TAB PO SCH (09:43)
[2022-06-15] MEDS: DOLUTEGRAVIR SODIUM 50 MG TABLET (NON-FORMULARY) PO SCH (09:43)
[2022-06-15] MEDS ORDERED: SODIUM CHLORIDE 250 ML IV PRN (12:21)
[2022-06-15] MEDS ORDERED: EPOETIN ALFA 10,000 UNIT/1 ML VIAL SQ ONE ×2 (12:22→17:30)
[2022-06-15] MEDS ORDERED: HEPARIN NA (PORCINE) 5,000 UNITS/ML 1ML VIAL ONE (13:20)
[2022-06-15] MEDS ORDERED: DEXMEDETOMIDINE HCL 200 MCG/2 ML IVPB ONE (13:57)
[2022-06-15] MEDS ORDERED: MIDAZOLAM HCL 2 MG/2 ML SINGLE DOSE VIAL ONE (14:02)
[2022-06-15] MEDS ORDERED: ceFAZolin SODIUM 1 GM VIAL ONE (14:29)
[2022-06-15] MEDS ORDERED: ceFAZolin SODIUM 1 GM VIAL IVPB ONE (14:30)
[2022-06-15] MEDS ORDERED: PROPOFOL 20 ML ONE (14:36)
[2022-06-15] MEDS ORDERED: LIDOCAINE HCL 1%, 10 MG/ML (20ML VIAL) NR ONE ×3 (14:45)
[2022-06-15] MEDS ORDERED: HEPARIN NA (PORCINE) 5,000 UNITS/ML 1ML VIAL SQ ONE ×2 (14:55)
[2022-06-15] MEDS ORDERED: CLOPIDOGREL BISULFATE 75 MG TABLET (FP) PO SCH (15:30)
[2022-06-15] MEDS ORDERED: PROMETHAZINE HCL 25 MG/1 ML VIAL IVPUSH PRN (15:38)
[2022-06-15] MEDS ORDERED: ONDANSETRON 4 MG/2 ML VIAL IVPUSH PRN (15:38)
[2022-06-15] MEDS ORDERED: LACTATED RINGERS SOLUTION 1,000 ML IV SCH (15:45)
[2022-06-15] MEDS ORDERED: ALBUTEROL SO4 HFA INHALER IH PRN (18:05)
[2022-06-15] MEDS ORDERED: ALBUTEROL SO4 2.5/IPRATROPIUM 0.5 INH SOL 3 ML VIAL.NEB. NEB PRN (18:05)
[2022-06-15] MEDS ORDERED: GABAPENTIN 300 MG CAPSULE PO SCH (22:00)
[2022-06-15] MEDS ORDERED: ATORVASTATIN CA 40 MG TABLET (FP) PO SCH (22:00)
[2022-06-16 01:08] VITALS: RESP 18
[2022-06-16 06:46] VITALS: TEMP 98.2
[2022-06-16] MEDS ORDERED: EPOETIN ALFA 10,000 UNIT/1 ML VIAL SQ ONE (08:15)
[2022-06-16 08:41] LABS: HEMATOCRIT 29.2 % (35.4-49); HEMOGLOBIN 9.7 GM/dL (11.7-16.9); MCHC 33.2 g/dl (32.0-35.9); MEAN CELL VOLUME 96.6 fl (80-96); MEAN PLT VOLUME 9.3 fl (7.5-11.1); PLATELET COUNT 155 10^3/uL (134-434); RBC 3.02 M/mm3 (4.00-5.60); WHITE BLOOD COUNT 6.4 K/mm3 (4.0-10.0)
[2022-06-16 09:05] LABS: CHLORIDE 100 mmol/L (98-107); SODIUM 138 mmol/L (136-145)
[2022-06-16 09:08] LABS: ANION GAP 16 MMOL/L (8-16); BLOOD UREA NITROGEN 59.3 mg/dL (7-18); CO2 22 mmol/L (21-32)
[2022-06-16 09:09] LABS: ALBUMIN 3.4 g/dl (3.4-5.0); GLUCOSE,RANDOM 112 mg/dL (74-106); MAGNESIUM 1.9 mg/dL (1.8-2.4)
[2022-06-16 09:11] LABS: PHOSPHOROUS 5.2 mg/dL (2.5-4.9); SGOT/AST 47 U/L (15-37); SGPT/ALT 17 U/L (13-61)
[2022-06-16 09:12] LABS: TOT PROT 7.1 g/dl (6.4-8.2)
[2022-06-16 09:13] LABS: ALK PHOS 81 U/L (45-117); BILIRUBIN,TOTAL 0.5 mg/dL (0.2-1); CALCIUM 8.5 mg/dL (8.5-10.1); CREATININE 10.3 mg/dL (0.55-1.3)
[2022-06-16] MEDS ORDERED: DARUNAVIR ETHANOLATE 800 MG TAB PO SCH (10:00)
[2022-06-16] MEDS ORDERED: DOLUTEGRAVIR SODIUM 50 MG TABLET (NON-FORMULARY) PO SCH (10:00)
[2022-06-16] MEDS ORDERED: CLOPIDOGREL BISULFATE 75 MG TABLET (FP) PO SCH (10:00)
[2022-06-16] MEDS ORDERED: amLODIPine BESYLATE 5 MG TABLET (FP) PO SCH (10:00)
[2022-06-16] MEDS: SEVELAMER CARBONATE 800 MG TAB (FP) PO SCH ×2 (10:15→12:28)
[2022-06-16] MEDS: LABETALOL HCL 200 MG TABLET (FP) PO SCH (10:15)
[2022-06-16 10:32] VITALS: BP 148/77; PULSE 82
== END 2022-06-16 13:55 | disposition left against medical advice (07) | DRG 270 ==
LOC: JER 08:49 → J5S 08:50 → UNDOADMIN 09:54 → JERBED 09:54 → J5S 17:40 → JERBED 17:40 → JASUSAT 06-12 08:53 → SUATTDRO 06-12 08:53 → J5S 06-12 09:22 → JASUSAT 06-12 09:22
PROVIDERS: ADMIT Internal Medicine; ATTEND Internal Medicine
PROC: 04CU3ZZ Extirpation of Matter from Left Peroneal Artery, Percutaneous Approach (ICD-10-PCS; 2022-06-12)
PROC: 047L3Z1 Dilation of Left Femoral Artery using Drug-Coated Balloon, Percutaneous Approach (ICD-10-PCS; 2022-06-12)
PROC: 047U3Z1 Dilation of Left Peroneal Artery using Drug-Coated Balloon, Percutaneous Approach (ICD-10-PCS; 2022-06-12)
PROC: B41DZZZ Fluoroscopy of Aorta and Bilateral Lower Extremity Arteries (ICD-10-PCS; 2022-06-12)
PROC: B40GYZZ Plain Radiography of Left Lower Extremity Arteries using Other Contrast (ICD-10-PCS; 2022-06-12)
PROC: B41DZZZ Fluoroscopy of Aorta and Bilateral Lower Extremity Arteries (ICD-10-PCS; 2022-06-12)
PROC: B40FYZZ Plain Radiography of Right Lower Extremity Arteries using Other Contrast (ICD-10-PCS; 2022-06-12)
PROC: 5A1D70Z Performance of Urinary Filtration, Intermittent, Less than 6 Hours Per Day (ICD-10-PCS; 2022-06-12)
PROC: 04CL3ZZ Extirpation of Matter from Left Femoral Artery, Percutaneous Approach (ICD-10-PCS; principal; 2022-06-12 09:00)
DX: I73.9 Peripheral vascular disease, unspecified (principal); N18.6 End stage renal disease; I13.2 Hypertensive heart and chronic kidney disease with heart failure and with stage 5 chronic kidney disease, or end stage renal disease; I50.32 Chronic diastolic (congestive) heart failure; B20 Human immunodeficiency virus [HIV] disease; F11.20 Opioid dependence, uncomplicated; Z99.2 Dependence on renal dialysis; E78.5 Hyperlipidemia, unspecified; Z86.73 Personal history of transient ischemic attack (TIA), and cerebral infarction without residual deficits; I45.10 Unspecified right bundle-branch block; D64.9 Anemia, unspecified; J45.909 Unspecified asthma, uncomplicated; E78.00 Pure hypercholesterolemia, unspecified; L97.529 Non-pressure chronic ulcer of other part of left foot with unspecified severity; G62.9 Polyneuropathy, unspecified
CPT/HCPCS: 0241U-QW; 36415; 76000-TC-FY; 80053; 80061; 83735; 84100; 85025; 85027; 86803; 86850; 86900; 86901; 87340; 87522; 93005; 93010; 94010; 94760; 99285-25; C1725; C1760; C2623; J0885; J1644; Q5106

== ENCOUNTER 2022-07-09 05:04 | Day surgery (SDC) | payer OTHER ==
[2022-07-07 12:43] VITALS: BMI 27.2
[2022-07-09] MEDS ORDERED: HEPARIN NA (PORCINE) 5,000 UNITS/ML 1ML VIAL ONE ×2 (13:11→15:10)
[2022-07-09] MEDS ORDERED: LIDOCAINE HCL 1%, 10 MG/ML (20ML VIAL) ONE ×2 (13:25→15:01)
[2022-07-09] MEDS ORDERED: MIDAZOLAM HCL 2 MG/2 ML SINGLE DOSE VIAL ONE (14:11)
[2022-07-09] MEDS ORDERED: KETAMINE HCL 500 MG/10 ML VIAL ONE (14:21)
[2022-07-09] MEDS ORDERED: PROPOFOL 20 ML ONE ×2 (14:25→14:57)
[2022-07-09] MEDS ORDERED: ONDANSETRON 4 MG/2 ML VIAL ONE (14:28)
[2022-07-09] MEDS ORDERED: DEXAMETHASONE SOD PHOSPHATE 4 MG/1 ML VIAL ONE (14:28)
[2022-07-09] MEDS ORDERED: LIDOCAINE HCL 1%, 10 MG/ML (20ML VIAL) INF ONE ×2 (14:39)
[2022-07-09] MEDS ORDERED: ceFAZolin SODIUM 1 GM VIAL IVPB ONE (14:40)
[2022-07-09] MEDS ORDERED: oxyCODONE HCL 5 MG TABLET PO PRN (16:31)
[2022-07-09] MEDS ORDERED: ONDANSETRON 4 MG/2 ML VIAL IVPUSH PRN (16:31)
[2022-07-09] MEDS ORDERED: PROMETHAZINE HCL 25 MG/1 ML VIAL IVPB PRN (16:31)
[2022-07-09] MEDS ORDERED: SODIUM CHLORIDE 1,000 ML IV SCH (16:45)
[2022-07-09 17:58] VITALS: RESP 18
[2022-07-09 19:21] VITALS: BP 138/76; PULSE 72; TEMP 97.4
== END 2022-07-09 19:45 | disposition home or self-care (01) ==
LOC: JASU-SURG 05:04
PROVIDERS: ATTEND Surgery Vascular Surgery
PROC: 03180ZD Bypass Left Brachial Artery to Upper Arm Vein, Open Approach (ICD-10-PCS; principal; 2022-07-09 13:30)
DX: I12.0 Hypertensive chronic kidney disease with stage 5 chronic kidney disease or end stage renal disease (principal); N18.6 End stage renal disease; Z99.2 Dependence on renal dialysis
CPT/HCPCS: 94760; J1644

== ENCOUNTER 2022-11-06 05:02 | Day surgery (SDC) | payer OTHER ==
[2022-11-05 12:47] VITALS: BMI 24.5
[2022-11-06] MEDS ORDERED: LIDOCAINE HCL 1%, 10 MG/ML (10ML VIAL) MDV ONE ×2 (07:56→10:08)
[2022-11-06] MEDS ORDERED: HEPARIN NA (PORCINE) 5,000 UNITS/ML 1ML VIAL ONE ×2 (07:56→10:08)
[2022-11-06] MEDS ORDERED: POVIDONE-IODINE OINTMENT 10% - 28.4 GM TUBE ONE ×2 (09:00→11:59)
[2022-11-06] MEDS ORDERED: MIDAZOLAM HCL 2 MG/2 ML SINGLE DOSE VIAL ONE (09:13)
[2022-11-06] MEDS ORDERED: PROPOFOL 20 ML ONE ×3 (09:13→11:39)
[2022-11-06] MEDS ORDERED: ONDANSETRON 4 MG/2 ML VIAL IVPUSH PRN ×2 (09:42→12:20)
[2022-11-06] MEDS ORDERED: SODIUM CHLORIDE 1,000 ML IV SCH ×2 (09:45→12:30)
[2022-11-06] MEDS ORDERED: CLINDAMYCIN 600MG PREMIX IVPB 600 MG/50 ML BAG IVPB ONE (11:03)
[2022-11-06] MEDS ORDERED: CLINDAMYCIN 600 MG PREMIX BAG IVPB ONE (11:05)
[2022-11-06] MEDS ORDERED: LIDOCAINE HCL 1%, 10 MG/ML (20ML VIAL) INF ONE (11:07)
[2022-11-06] MEDS ORDERED: HEPARIN NA (PORCINE) 5,000 UNITS/ML 1ML VIAL SQ ONE (11:12)
[2022-11-06] MEDS ORDERED: POVIDONE-IODINE OINTMENT 10% - 28.4 GM TUBE TP ONE (12:03)
[2022-11-06] MEDS ORDERED: oxyCODONE HCL 5 MG TABLET PO PRN (12:20)
[2022-11-06 15:29] VITALS: PULSE 81; RESP 20; TEMP 97.8
[2022-11-06 15:44] VITALS: BP 112/63
== END 2022-11-06 15:00 | disposition home or self-care (01) ==
LOC: JASU-SURG 05:02
PROVIDERS: ATTEND Surgery Vascular Surgery
PROC: 05SC0ZZ Reposition Left Basilic Vein, Open Approach (ICD-10-PCS; principal; 2022-11-06 09:30)
DX: I12.0 Hypertensive chronic kidney disease with stage 5 chronic kidney disease or end stage renal disease (principal); N18.6 End stage renal disease; Z99.2 Dependence on renal dialysis
CPT/HCPCS: 36415; 84132; 94760; J1644

== ENCOUNTER 2022-12-31 04:21 | Day surgery (SDC) | payer OTHER ==
[2022-12-30 16:46] VITALS: BMI 26.1
[2022-12-31] MEDS ORDERED: LIDOCAINE HCL/PF 1% SDV 5ML VIAL ONE (07:15)
[2022-12-31] MEDS ORDERED: HEPARIN NA (PORCINE) 5,000 UNITS/ML 1ML VIAL ONE (07:15)
[2022-12-31 07:24] VITALS: BP 137/76; PULSE 86; RESP 18; TEMP 97.8
== END 2022-12-31 08:40 | disposition home or self-care (01) ==
LOC: JASU-SURG 04:21
PROVIDERS: ATTEND Surgery Vascular Surgery
DX: Z53.8 Procedure and treatment not carried out for other reasons (principal)
CPT/HCPCS: J1644

== ENCOUNTER → 2023-01-04 | Day surgery (SDC) | payer OTHER ==
[2023-01-01 11:34] VITALS: BMI 27.5
[~2023-01-04] MED LIST changes: -CEFEPIME HCL/D5W 1 GM/50 ML BAG IVPB ONE; +HEPARIN NA (PORCINE) 5,000 UNITS/ML 1ML VIAL IVPUSH ONE; +LIDOCAINE HCL 1%, 10 MG/ML (10ML VIAL) MDV ONE; +PROPOFOL 20 ML ONE; +PROPOFOL 40 ML ONE; -VANCOMYCIN 500 MG in DEXTROSE 5%-WATER - 100 ML IVPB ONE
== END | disposition home or self-care (01) ==
LOC: JASU-SURG 04:34
PROVIDERS: ATTEND Surgery Vascular Surgery
DX: Z53.8 Procedure and treatment not carried out for other reasons (principal)
CPT/HCPCS: J1644

== ENCOUNTER 2023-01-08 03:56 | Day surgery (SDC) | payer OTHER ==
[~2023-01-08 03:56] MED LIST changes: -HEPARIN NA (PORCINE) 5,000 UNITS/ML 1ML VIAL IVPUSH ONE; +HEPARIN NA (PORCINE) 5,000 UNITS/ML 1ML VIAL SQ ONE; -LIDOCAINE HCL 1%, 10 MG/ML (10ML VIAL) MDV ONE; +LIDOCAINE HCL 1%, 10 MG/ML (20ML VIAL) NR ONE; -PROPOFOL 20 ML ONE; -PROPOFOL 40 ML ONE
[2023-01-08] MEDS ORDERED: LIDOCAINE HCL 1%, 10 MG/ML (20ML VIAL) NR ONE (12:03)
[2023-01-08 15:54] VITALS: BP 150/84; PULSE 73; RESP 20; TEMP 97.7
== END 2023-01-08 15:00 | disposition home or self-care (01) ==
LOC: JASU-SURG 03:56
PROVIDERS: ATTEND Surgery Vascular Surgery
PROC: 057C3ZZ Dilation of Left Basilic Vein, Percutaneous Approach (ICD-10-PCS; principal; 2023-01-08 11:00)
DX: T82.858A Stenosis of other vascular prosthetic devices, implants and grafts, initial encounter (principal); Y83.2 Surgical operation with anastomosis, bypass or graft as the cause of abnormal reaction of the patient, or of later complication, without mention of misadventure at the time of the procedure; I12.0 Hypertensive chronic kidney disease with stage 5 chronic kidney disease or end stage renal disease; N18.6 End stage renal disease; Z99.2 Dependence on renal dialysis
CPT/HCPCS: 76000-TC-FY; 94760; J1644

== ENCOUNTER 2023-04-13 13:00 | Emergency (ER) | payer OTHER ==
[2023-04-13 13:26] VITALS: BP 118/57; PULSE 90; RESP 18; TEMP 98.1; BMI 26.1
[2023-04-13] MEDS ORDERED: ACETAMINOPHEN 1000 MG/100 ML BAG IVPB ONE (15:29)
[2023-04-13] MEDS ORDERED: VANCOMYCIN HCL 1,500 MG in DEXTROSE 5%-WATER - 500 ML IVPB ONE (15:52)
== END 2023-04-13 16:00 | disposition left against medical advice (07) ==
LOC: JER 13:00
DX: L03.115 Cellulitis of right lower limb (principal); B20 Human immunodeficiency virus [HIV] disease; R20.2 Paresthesia of skin; I73.9 Peripheral vascular disease, unspecified; R60.0 Localized edema
CPT/HCPCS: 93971-TC; 99283-25

== ENCOUNTER 2023-12-15 15:27 | Emergency (ER) | payer OTHER ==
[2023-12-15 15:34] VITALS: BP 150/76; PULSE 91; RESP 18; TEMP 97.3; BMI 23.4
[2023-12-15] MEDS ORDERED: CLINDAMYCIN HCL 150 MG CAPSULE (FP) ONE (18:10)
[2023-12-15] MEDS: CLINDAMYCIN HCL 150 MG CAPSULE (FP) PO ONE (18:19)
== END 2023-12-15 18:30 | disposition home or self-care (01) ==
LOC: JER 15:27
DX: L03.011 Cellulitis of right finger (principal)
CPT/HCPCS: 73130-TC-RT-FY; 99283-25

== ENCOUNTER 2024-01-05 09:19 | Emergency (ER) | payer OTHER ==
[2024-01-05 09:32] VITALS: RESP 18; TEMP 98; BMI 22.3
[2024-01-05 14:39] VITALS: BP 126/78; PULSE 74
== END 2024-01-05 14:39 | disposition home or self-care (01) ==
LOC: JER 09:19
DX: M71.22 Synovial cyst of popliteal space [Baker], left knee (principal); S80.812A Abrasion, left lower leg, initial encounter; R60.0 Localized edema
CPT/HCPCS: 93971-TC; 99284-25